=== PATIENT | female | born 1965 | race Caucasian/White ===

== ENCOUNTER → 2016-03-07 | Outpatient (CLI) | payer OTHER ==
[2016-02-03 10:18] VITALS: BP 138/93
[~2016-03-07] MED LIST: ATOR20TA PO; GABA-586 PO; GLIM2TAB2 PO; GLIP10TA13 PO; LISI10TA2 PO; OXYC-323 PO; SITA100T PO; VALS80TA3 PO; ZOLP10TA PO
--- NOTE | 2016-03-07 10:07 | KCIC ---
Examination: Two views of the chest. HISTORY History of pneumonitis, cough. COMPARISON None available. FINDINGS The cardiomediastinal grossly appears unremarkable. Minimal prominence of perihilar bronchovascular markings particularly in the bibasilar lungs. There is no evidence of pneumothorax or pleural effusion identified. IMPRESSION Mild prominent appearing bilateral interstitial lung markings particularly in the bibasilar lungs could be due to pneumonitis or bronchitis. Electronically signed by: Mehdi Montana (Mar 07, 2016 10:05:24)
== END | disposition home or self-care (01) ==
LOC: KCIC 09:34
PROVIDERS: ATTEND Family Medicine
DX: J18.9 Pneumonia, unspecified organism (principal); R05 Cough
CPT/HCPCS: 71020

== ENCOUNTER → 2016-11-15 | Outpatient (CLI) | payer OTHER ==
[2016-02-03 10:18] VITALS: BP 138/93
[2016-11-15 10:28] LABS: BASO # 0.1 x10^3/uL (0.0-0.2); BASO % 1 % (0-3); EOS % 3 % (0-3); HEMATOCRIT 37.4 % (36.0-47.0); HEMOGLOBIN 12.4 g/dL (12.0-15.5); LYMPH % 17 % (24-48); MEAN CORPUSCULAR HEMOGLOBIN 29 pg (25-35); MEAN CORPUSCULAR HGB CONC 33 g/dL (31-37); MEAN CORPUSCULAR VOLUME 88 fL (79-100); MONO % 8 % (0-9); NEUT % 72 % (31-73); PLATELET COUNT 159 x10^3/uL (140-400); RED BLOOD COUNT 4.26 x10^6/uL (3.50-5.40); RED CELL DISTRIBUTION WIDTH 15.3 % (11.5-14.5); WHITE BLOOD COUNT 5.9 x10^3/uL (4.0-11.0)
[2016-11-15 10:51] LABS: ALBUMIN 3.4 g/dL (3.4-5.0); ALBUMIN/GLOBULIN RATIO 1.1 (1.0-1.7); CALCIUM 8.8 mg/dL (8.5-10.1); CREATININE 0.9 mg/dL (0.6-1.0); TOTAL PROTEIN 6.6 g/dL (6.4-8.2)
[2016-11-15 10:52] LABS: C-REACTIVE PROTEIN 37.5 mg/L (0-3.3); GFR 66.3; POTASSIUM 4.1 mmol/L (3.5-5.1); TOTAL BILIRUBIN 1.1 mg/dL (0.2-1.0)
--- NOTE | 2016-11-15 11:41 | RAD ---
DATE: 11/15/2016 EXAM: DIGITAL DIAGNOSTIC BILATERAL, BREAST BILATERAL HISTORY: Tenderness and lumps in the bilateral breasts for 3 months COMPARISON: 02/24/2015 This study was interpreted with the benefit of Computerized Aided Detection (CAD). FINDINGS: Breast Density: SCATTERED The breast parenchyma shows scattered fibroglandular densities. Breast parenchyma level B. There are no dominant suspicious masses, suspicious microcalcifications or evidence of architectural distortion. Few bilateral axillary lymph nodes identified at the site of patient's tenderness. Targeted ultrasound of the bilateral breasts at the site of tenderness and lump in the region of the axilla demonstrate no definite evidence of mass or lesion or abnormal lymphadenopathy. IMPRESSION: Benign findings. Recommend clinical follow-up. BI-RADS CATEGORY: 2 BENIGN FINDING RECOMMENDED FOLLOW-UP: 12M 12 MONTH FOLLOW-UP PQRS compliance statement: Patient information was entered into a reminder system with a target due date 11/15/2017 for the next mammogram. Mammography is a sensitive method for finding small breast cancers, but it does not detect them all and is not a substitute for careful clinical examination. A negative mammogram does not negate a clinically suspicious finding and should not result in delay in biopsying a clinically suspicious abnormality. "Our facility is accredited by the [employer] Mammography Program."
== END | disposition home or self-care (01) ==
LOC: MAMMO 10:00
PROVIDERS: ATTEND Nurse Practitioner Family
DX: N64.4 Mastodynia (principal); E11.3399 Type 2 diabetes mellitus with moderate nonproliferative diabetic retinopathy without macular edema, unspecified eye; I88.9 Nonspecific lymphadenitis, unspecified
CPT/HCPCS: 36415; 76641; 80053; 83036; 85025; 85651; 86140; G0204; 77066

== ENCOUNTER 2017-10-03 08:42 | Emergency (ER) | payer OTHER ==
[~2017-10-03] VITALS: Ht 170.2 cm; Wt 131.5 kg
[2017-10-03] MEDS ORDERED: LIDO:MAALOX 1:1 20 ML SINGLE DOSE. PO ONE (09:30)
[2017-10-03 09:38] LABS: BASO % 1 % (0-3); EOS # 0.1 x10^3/uL (0.0-0.7); EOS % 1 % (0-3); HEMATOCRIT 37.6 % (36.0-47.0); HEMOGLOBIN 12.8 g/dL (12.0-15.5); LYMPH # 1.1 x10^3/uL (1.0-4.8); LYMPH % 17 % (24-48); MEAN CORPUSCULAR HEMOGLOBIN 30 pg (25-35); MEAN CORPUSCULAR HGB CONC 34 g/dL (31-37); MEAN CORPUSCULAR VOLUME 88 fL (79-100); MONO # 0.2 x10^3/uL (0.0-1.1); MONO % 3 % (0-9); NEUT % 78 % (31-73); PLATELET COUNT 155 x10^3/uL (140-400); RED BLOOD COUNT 4.29 x10^6/uL (3.50-5.40); WHITE BLOOD COUNT 6.4 x10^3/uL (4.0-11.0)
--- NOTE | 2017-10-03 09:38 | PHYS DOC ---
Past Medical History Past Medical History: Diabetes-Type II, Hypertension Past Surgical History: Other Additional Past Surgical Histo: L knee Alcohol Use: None Drug Use: None Adult General Chief Complaint Chief Complaint: CHEST PAIN HPI HPI Patient is a 52 year old female who presents to the ER for evaluation of chest pain. Patient reports onset at approximately 5 AM and states that awoke her from sleep. Patient states that she was having burning sensation consistent with previous heartburn but also is having some 5 out of 10 chest pressure. Patient reports gradual improvement and chest pressure to 3 out of 10. No aggravating or alleviating factors. No radiation of pain. He reports that she has some intermittent lower extremity edema is having some swelling today. Review of Systems Review of Systems Constitutional: Denies fever or chills [] Eyes: Denies change in visual acuity, redness, or eye pain [] HENT: Denies nasal congestion or sore throat [] Respiratory: Denies cough or shortness of breath [] Cardiovascular: Pain present, no orthopnea, lower extremity edema present. GI: Denies abdominal pain, nausea, vomiting, bloody stools or diarrhea [] : Denies dysuria or hematuria [] Musculoskeletal: Denies back pain or joint pain [] Integument: Denies rash or skin lesions [] Neurologic: Denies headache, focal weakness or sensory changes [] Endocrine: Denies polyuria or polydipsia [] All other systems were reviewed and found to be within normal limits, except as documented in this note. Current Medications Current Medications Current Medications Medications (Trade) Dose Ordered Sig/[place] Start Time Stop Time Status Last Admin Dose Admin Multi-Ingredient Mouthwash/Gargle (Gi Cocktail) 20 ml ONCE ONCE 10/03/17 09:30 10/03/17 09:31 DC 10/03/17 09:31 20 ML Allergies Allergies Allergies Coded Allergies Type Severity Reaction Last Updated Verified No Known Drug Allergies 02/03/16 No Physical Exam Physical Exam Constitutional: Obese no acute distress, non-toxic appearance. [] HENT: Normocephalic, atraumatic, Eyes: PERRLA, EOMI, Neck: no stridor. [] Cardiovascular:Heart rate regular rhythm, no murmur []7. Edema to bilateral lower extremity bilateral radial and DP pulses present and equal bilaterally Lungs & Thorax: Bilateral breath sounds clear to auscultation [] Abdomen: Bowel sounds normal, soft, no tenderness, no masses, no pulsatile masses. [] Skin: Warm, dry, no erythema, no rash. [] Back: No tenderness, no CVA tenderness. [] Extremities: Range of motion intact, edema noted above. Neurologic: Alert and oriented X 3, no focal deficits noted. [] Psychologic: Affect normal, judgement normal, mood normal. [] Current Patient Data Vital Signs Vital Signs Date Time Temp Pulse Resp B/P (MAP) Pulse Ox O2 Delivery O2 Flow Rate FiO2 10/03/17 12:45 92 20 134/70 (91) 95 Room Air 10/03/17 08:42 98.0 98.0 Lab Values Laboratory Tests Test 10/03/17 09:00 10/03/17 12:10 White Blood Count 6.4 x10^3/uL (4.0-11.0) Red Blood Count 4.29 x10^6/uL (3.50-5.40) Hemoglobin 12.8 g/dL (12.0-15.5) Hematocrit 37.6 % (36.0-47.0) Mean Corpuscular Volume 88 fL (79-100) Mean Corpuscular Hemoglobin 30 pg (25-35) Mean Corpuscular Hemoglobin Concent 34 g/dL (31-37) Red Cell Distribution Width 15.0 % (11.5-14.5) H Platelet Count 155 x10^3/uL (140-400) Neutrophils (%) (Auto) 78 % (31-73) H Lymphocytes (%) (Auto) 17 % (24-48) L Monocytes (%) (Auto) 3 % (0-9) Eosinophils (%) (Auto) 1 % (0-3) Basophils (%) (Auto) 1 % (0-3) Neutrophils # (Auto) 5.0 x10^3uL (1.8-7.7) Lymphocytes # (Auto) 1.1 x10^3/uL (1.0-4.8) Monocytes # (Auto) 0.2 x10^3/uL (0.0-1.1) Eosinophils # (Auto) 0.1 x10^3/uL (0.0-0.7) Basophils # (Auto) 0.0 x10^3/uL (0.0-0.2) Sodium Level 135 mmol/L (136-145) L Potassium Level 4.3 mmol/L (3.5-5.1) Chloride Level 99 mmol/L (98-107) Carbon Dioxide Level 27 mmol/L (21-32) Anion Gap 9 (6-14) Blood Urea Nitrogen 19 mg/dL (7-20) Creatinine 0.8 mg/dL (0.6-1.0) Estimated GFR (Cockcroft-Gault) 75.6 BUN/Creatinine Ratio 24 (6-20) H Glucose Level 391 mg/dL (70-99) H Calcium Level 9.8 mg/dL (8.5-10.1) Total Bilirubin 0.8 mg/dL (0.2-1.0) Aspartate Amino Transferase (AST) 17 U/L (15-37) Alanine Aminotransferase (ALT) 48 U/L (14-59) Alkaline Phosphatase 137 U/L (46-116) H Troponin I Quantitative < 0.017 ng/mL (0.000-0.055) < 0.017 ng/mL (0.000-0.055) CT-Wcr-V-Type Natriuretic Peptide 42 pg/mL (0-124) Total Protein 7.6 g/dL (6.4-8.2) Albumin 3.8 g/dL (3.4-5.0) Albumin/Globulin Ratio 1.0 (1.0-1.7) Lipase 129 U/L (73-393) Laboratory Tests 10/03/17 09:00 Laboratory Tests 10/03/17 09:00 EKG EKG Normal sinus rhythm, heart rate 92, no significant ST segment changes.[] KKG #2: Normal sinus rhythm, heart rate 92, no significant ST segment changes. Radiology/Procedures Radiology/Procedures CXR 2 view Impression: Minimal bibasilar lung airspace opacities likely atelectasis or infiltrates.. Electronically signed by: Mehdi Montana MD (10/03/2017 9:50 AM) [id number][] Course & Med Decision Making Course & Med Decision Making Pertinent Labs and Imaging studies reviewed. (See chart for details) []Reassuring ER evaluation. Patient reports near resolution of pain with GI cocktail. Reporting pain is 1 out of 10 at this time. Initial troponin and EKG are reassuring. Patient agreeable for ER obs PENDING second set. Patient remained comfortable with no recurrence of her chest pain after the GI cocktail for the duration of her ER visit. Serial EKG and troponins were very reassuring. Heart score of 2. Discussed labs and imaging. Advise close PCP follow-up. ER return precautions given. Patient verbalized understanding. All questions answered. Dragon Disclaimer Dragon Disclaimer This electronic medical record was generated, in whole or in part, using a voice recognition dictation system. Departure Departure Impression: Primary Impression: Chest pain Disposition: 01 HOME, SELF-CARE Condition: IMPROVED Referrals: YIN HOLLAND MD (PCP) Patient Instructions: Chest Pain (Nonspecific) Additional Instructions: Thank you for coming to [facility]. Please repeat the attached handouts. Please follow-up with your primary care physician. Return to the ER if your symptoms worsen or you have any other concerns. ERIC ROCHA DO Oct 03, 2017 09:38
--- NOTE | 2017-10-03 09:45 | EKG ---
[facility] [address] [place] [address] Test Date: 2017-10-03 Test Time: 08:42:20 Pat Name: NAZANIN SIMMONS Department: Room: Gender: F [employer]: : 1965 Requested By: ERIC ROCHA Order Number: [id number] Reading MD: Thomas Correia MD Measurements Intervals [place] Rate: 92 P: 18 MD: 166 QRS: 12 QRSD: 88 T: 41 QT: 338 QTc: 423 Interpretive Statements SINUS RHYTHM QRS(T) CONTOUR ABNORMALITY CONSISTENT WITH ANTEROSEPTAL INFARCT PROBABLY OLD ABNORMAL ECG Electronically Signed On 10-04-2017 15:23:05 CDT by Thomas Correia MD
[2017-10-03 09:46] LABS: CALCIUM 9.8 mg/dL (8.5-10.1); CREATININE 0.8 mg/dL (0.6-1.0); GFR 75.6; POTASSIUM 4.3 mmol/L (3.5-5.1)
--- NOTE | 2017-10-03 09:53 | RAD ---
Chest, PA and Lateral: Technique: PA and lateral views of the chest were obtained. History: Chest pain. Comparison: 03/07/2016. Findings: The heart and pulmonary vasculature appear within normal limits. Minimal bibasilar lung airspace opacity likely atelectasis or infiltrates.. The pleural margins are clear. Impression: Minimal bibasilar lung airspace opacities likely atelectasis or infiltrates.. Electronically signed by: Mehdi Montana MD (10/03/2017 9:50 AM) [id number]
[2017-10-03 09:56] LABS: ALBUMIN 3.8 g/dL (3.4-5.0); TOTAL BILIRUBIN 0.8 mg/dL (0.2-1.0); TOTAL PROTEIN 7.6 g/dL (6.4-8.2)
[2017-10-03 12:45] VITALS: BP 134/70
--- NOTE | 2017-10-03 13:14 | EKG ---
[facility] [address] [place] [address] Test Date: 2017-10-03 Test Time: 11:27:23 Pat Name: NAZANIN SIMMONS Department: Room: Gender: F Veget[employer]: OSCAR : 1965 Requested By: ERIC ROCHA Order Number: [id number] Reading MD: Thomas Correia MD Measurements Intervals [place] Rate: 92 P: 19 MT: 162 QRS: 5 QRSD: 82 T: 20 QT: 338 QTc: 423 Interpretive Statements SINUS RHYTHM QRS(T) CONTOUR ABNORMALITY CONSISTENT WITH ANTEROSEPTAL INFARCT PROBABLY OLD Electronically Signed On 10-04-2017 15:26:06 CDT by Thomas Correia MD
== END 2017-10-03 13:01 | disposition home or self-care (01) ==
LOC: ER 08:42
DX: R07.89 Other chest pain (principal); E11.9 Type 2 diabetes mellitus without complications; I10 Essential (primary) hypertension; R60.0 Localized edema; E66.9 Obesity, unspecified; Z68.42 Body mass index [BMI] 45.0-49.9, adult
CPT/HCPCS: 36415; 71046; 80053; 83690; 83880; 84484; 85025; 93005; 99285-25

== ENCOUNTER → 2017-10-31 | Outpatient (CLI) | payer OTHER ==
[2017-10-03 12:45] VITALS: BP 134/70
--- NOTE | 2017-10-31 16:16 | KCIC ---
Left knee radiograph 10/31/2017 12:00 AM INDICATION: Contusion of left knee with acute pain. COMPARISON: November 26, 2014 TECHNIQUE: 3 views the left knee are provided. FINDINGS: There is no acute fracture or dislocation. Hardware is identified in the proximal tibia without surrounding lucency. There is mild to moderate medial and mild lateral femorotibial joint space narrowing. Mineralization is identified within the joint spaces suggestive of chondrocalcinosis. There is marginal osteophytosis. There is no significant knee joint effusion. There is patellofemoral joint space narrowing with marginal osteophytosis. Bone mineralization is within normal limits. Joint spaces are maintained. Regional soft tissues are within normal limits. There is no soft tissue gas or osseous erosion. IMPRESSION: Mild to moderate osteoarthrosis of the knee. Mineralization along the joint spaces is suggestive of chondrocalcinosis. Electronically signed by: Sabrina Acosta MD (10/31/2017 4:12 PM) [id number]
== END | disposition home or self-care (01) ==
LOC: KCIC 15:45
PROVIDERS: ATTEND Family Medicine
DX: M17.11 Unilateral primary osteoarthritis, right knee (principal); I10 Essential (primary) hypertension; E11.9 Type 2 diabetes mellitus without complications; E78.5 Hyperlipidemia, unspecified; Z82.49 Family history of ischemic heart disease and other diseases of the circulatory system; Z80.0 Family history of malignant neoplasm of digestive organs; Z83.3 Family history of diabetes mellitus; Z90.710 Acquired absence of both cervix and uterus
CPT/HCPCS: 73562

== ENCOUNTER → 2017-11-12 | Outpatient (CLI) | payer OTHER ==
--- NOTE | 2017-11-12 13:38 | KCIC ---
MR of the left knee Indication: Left knee contusion. Previous surgery as a child. Injury on October 30. Pain anterior and posterior. Comparison: November 27, 2014. Technique: The standard multiplanar sequences are obtained. FINDINGS: Artifact: No significant image degradation. Medial meniscus: Radial tear at the posterior horn and root. Additional tearing through the posterior horn and body. Medial subluxation of the meniscus. Appearance is similar to the prior exam. Lateral meniscus: Intact. Anterior cruciate ligament: Intact Posterior cruciate ligament: Diffusely thickened and heterogeneous compatible with a high-grade tear. No complete through and through rupture or fluid gap is seen. Medial collateral ligament: Mild proximal sprain or thickening. Lateral structures: * Iliotibial band: Intact. * Lateral collateral ligament: Intact. * Biceps femoris tendon: Intact * Popliteus tendon attachment: Intact Extensive mechanism: * Patellar tendon: Intact. Surgical hardware identified at the tibial tubercle. * Quadriceps tendon: Intact * Retinacular structures: Intact Fluid: Small joint effusion. Trace Vilchis's cyst. Small fluid pocket along the posteromedial knee joint, likely a small ganglion cyst. This could also represent some mild septated bursitis. Somewhat similar finding was seen previously but is slightly larger now. Intra-articular bodies: None visualized Joint compartments * patellofemoral joint: Severe articular cartilage loss with subchondral bone exposure. There is flattening and remodeling of bone particularly at the patella. * medial compartment: Moderate chondromalacia with marginal osteophytes. * lateral compartment: Mild degenerative change. Bones: No significant lesion or acute fracture. Soft tissue: Mild generalized soft tissue edema. Impression: 1. Medial meniscal tear, appears similar as prior study. 2. Severe primary osteoarthritis, greatest at the patellofemoral joint, similar to prior. Electronically signed by: Cachorro Busby MD (11/12/2017 1:35 PM) [id number]
== END | disposition home or self-care (01) ==
LOC: KCIC MRI 12:06
PROVIDERS: ATTEND Orthopaedic Surgery
DX: S80.02XD Contusion of left knee, subsequent encounter (principal); S83.242D Other tear of medial meniscus, current injury, left knee, subsequent encounter; M17.0 Bilateral primary osteoarthritis of knee; M94.262 Chondromalacia, left knee; M25.762 Osteophyte, left knee; R60.0 Localized edema; I10 Essential (primary) hypertension; E11.9 Type 2 diabetes mellitus without complications; E78.5 Hyperlipidemia, unspecified; Z90.710 Acquired absence of both cervix and uterus; Z82.49 Family history of ischemic heart disease and other diseases of the circulatory system; Z80.0 Family history of malignant neoplasm of digestive organs; Z80.3 Family history of malignant neoplasm of breast
CPT/HCPCS: 73721

== ENCOUNTER → 2017-12-07 | Outpatient (CLI) | payer OTHER ==
[~2017-12-07] MED LIST changes: +AMLO5TAB7 PO; +B12/1TAB3 PO
[2017-12-07 09:06] LABS: ALBUMIN 3.6 g/dL (3.4-5.0); ALBUMIN/GLOBULIN RATIO 0.9 (1.0-1.7); CALCIUM 9.3 mg/dL (8.5-10.1); GFR 58.5; POTASSIUM 4.5 mmol/L (3.5-5.1); TOTAL BILIRUBIN 0.6 mg/dL (0.2-1.0); TOTAL PROTEIN 7.5 g/dL (6.4-8.2)
[2017-12-07 09:09] LABS: CHOLESTEROL/HDL RATIO 3.2
[2017-12-07 13:22] LABS: CREAT RD UR 65.7 mg/dL (Not Estab.); MICRO CREAT RATIO 7.5 mg/g creat (0.0-30.0); MICROALB RD UR 4.9 ug/mL (Not Estab.)
[2017-12-07 23:14] LABS: HEMOGLOBIN A1C 11.3 % (4.8-5.6)
== END | disposition home or self-care (01) ==
LOC: LAB 08:23
PROVIDERS: ATTEND Family Medicine
DX: E11.3399 Type 2 diabetes mellitus with moderate nonproliferative diabetic retinopathy without macular edema, unspecified eye (principal)
CPT/HCPCS: 36415; 80053; 80061; 82043; 82570; 83036

== ENCOUNTER 2018-01-10 01:36 | Emergency (ER) | payer OTHER ==
[~2018-01-10] VITALS: Ht 170.2 cm; Wt 131.5 kg
[2018-01-10 01:40] VITALS: BP 153/91
--- NOTE | 2018-01-10 01:55 | PHYS DOC ---
Past Medical History Past Medical History: Diabetes-Type II, High Cholesterol, Hypertension Past Surgical History: Hysterectomy, Tonsillectomy, Other Additional Past Surgical Histo: L knee, RIGHT SHOULDER Alcohol Use: None Drug Use: None Adult General Chief Complaint Chief Complaint: BACK PAIN OR INJURY HPI HPI Patient is a 52 year old female who presents with right back pain. This started during the course of the day. Increased pain with twisting and moving as well as walking especially with moving the right leg. Patient denies any loss of bowel or bladder control. Patient denies any fever, trauma, personal history of cancer, nor IV drug abuse. Patient received no significant pain relief with 800 mg of ibuprofen at home. There is no radiation of the discomfort. Patient feels better with holding still. Increased pain with moving and twisting. Pain is moderate to severe in intensity [] Review of Systems Review of Systems Constitutional: Denies fever or chills [] Eyes: Denies change in visual acuity, redness, or eye pain [] HENT: Denies nasal congestion or sore throat [] Respiratory: Denies cough or shortness of breath [] Cardiovascular: No chest pain or palpitations[] GI: Denies abdominal pain, nausea, vomiting, bloody stools or diarrhea [] : Denies dysuria or hematuria [] Musculoskeletal: See history of present illness[] Integument: Denies rash or skin lesions [] Neurologic: Denies headache, focal weakness or sensory changes [] Endocrine: Denies polyuria or polydipsia [] All other systems were reviewed and found to be within normal limits, except as documented in this note. Current Medications Current Medications Current Medications Medications (Trade) Dose Ordered Sig/[facility] Start Time Stop Time Status Last Admin Dose Admin Ketorolac Tromethamine (Toradol 15mg Vial) 15 mg 1X ONCE 01/10/18 02:15 01/10/18 02:16 DC 01/10/18 02:09 15 MG Orphenadrine Citrate (Norflex) 60 mg 1X ONCE 01/10/18 02:15 01/10/18 02:16 DC 01/10/18 02:09 60 MG Allergies Allergies Allergies Coded Allergies Type Severity Reaction Last Updated Verified No Known Drug Allergies 02/03/16 No Physical Exam Physical Exam Constitutional: Well developed, well nourished, mild discomfort, non-toxic appearance. [] HENT: Normocephalic, atraumatic, bilateral external ears normal, oropharynx moist, no oral exudates, nose normal. [] Eyes: PERRLA, EOMI, conjunctiva normal, no discharge. [] Neck: Normal range of motion, no tenderness, supple, no stridor. [] Cardiovascular:Heart rate regular rhythm, no murmur [] Lungs & Thorax: Bilateral breath sounds clear to auscultation [] Abdomen: Bowel sounds normal, soft, no tenderness, no masses, no pulsatile masses. [] Skin: Warm, dry, no erythema, no rash. [] Back: Right-sided lumbar paraspinal spasm and tenderness to palpation. Palpation does re-create the pain. Normal gait. [] Extremities: No tenderness, no cyanosis, no clubbing, ROM intact, no edema. [] Neurologic: Alert and oriented X 3, normal motor function, normal sensory function, no focal deficits noted. [] Psychologic: Affect normal, judgement normal, mood normal. [] Current Patient Data Vital Signs Vital Signs Date Time Temp Pulse Resp B/P (MAP) Pulse Ox O2 Delivery O2 Flow Rate FiO2 01/10/18 01:40 98.0 92 18 153/91 (111) 96 Room Air 98.0 EKG EKG [] Radiology/Procedures Radiology/Procedures [] Course & Med Decision Making Course & Med Decision Making Pertinent Labs and Imaging studies reviewed. (See chart for details) ED course: Patient arrived, was placed in bed, in tolerated exam well. Discussed options regarding laboratory testing and imaging with the patient along with the choosing wisely guidelines. There was no indication for imaging. Patient received IM NSAID as well as muscle relaxer which did allow her to sleep and rest comfortably. 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 Medical decision making: There does not appear to be evidence of a fracture or subluxation. No evidence of intractable pain. No evidence of urinary tract infection/pyelonephritis nor abdominal aortic aneurysm. No red flag history items indicating a need for imaging.[] Dragon Disclaimer Dragon Disclaimer This electronic medical record was generated, in whole or in part, using a voice recognition dictation system. Departure Departure Impression: Primary Impression: Lumbar paraspinal muscle spasm Disposition: HOME, SELF-CARE Condition: GOOD Referrals: YIN HOLLAND MD (PCP) Follow-up in 2 days Patient Instructions: Back Pain, Adult Additional Instructions: Follow-up with your regular doctor in 2 days. Return to the ER if worsening pain , loss of bowel or bladder control, you develop a fever, or any other concerns. No driving for the next 6 hours Scripts Orphenadrine Citrate (ORPHENADRINE CITRATE) 100 Mg Tablet.er 100 MG PO BID, #20 TAB.SR Prov: JANETTE MERRITT DO 01/10/18 Meloxicam (MELOXICAM) 7.5 Mg Tablet 7.5 MG PO DAILY, #20 TAB Prov: JANETTE MERRITT DO 01/10/18 JANETTE MERRITT DO Jan 10, 2018 01:55
[2018-01-10] MEDS ORDERED: KETOROLAC 15 MG/ML VIAL. IM ONE (02:15)
[2018-01-10] MEDS ORDERED: ORPHENADRINE CITRATE 60 MG/2 ML VIAL. IM ONE (02:15)
[2018-01-10] MEDS ORDERED: ORPH100T PO (02:31)
[2018-01-10] MEDS ORDERED: MELO7.5T29 PO (02:31)
== END 2018-01-10 02:50 | disposition home or self-care (01) ==
LOC: ER 01:36
DX: M62.830 Muscle spasm of back (principal); E78.00 Pure hypercholesterolemia, unspecified; I10 Essential (primary) hypertension; E11.9 Type 2 diabetes mellitus without complications; Z90.710 Acquired absence of both cervix and uterus
CPT/HCPCS: 96372; 99283; J1885; J2360

== ENCOUNTER 2018-04-12 19:41 | Inpatient (IN) | payer OTHER ==
[~2018-04-12] VITALS: Ht 170.2 cm; Wt 136.8 kg
[~2018-04-12 19:41] MED LIST changes: +AMLO5TAB10 PO; -AMLO5TAB7 PO; -GABA-586 PO; +GABA300C18 PO; +MELO7.5T29 PO; +ORPH100T PO; -OXYC-323 PO; +OXYC1TAB15 PO
[2018-04-12] MEDS ORDERED: ONDANSETRON PF 4 MG/2 ML VIAL. ONE (20:07)
[2018-04-12] MEDS ORDERED: IPRATRPIUM/ALBUTEROL 0.5/2.5MG 3 ML NEBU. NEB ONE (20:15)
[2018-04-12] MEDS ORDERED: IV NORMAL SALINE 1000ML BAG 1,000 ML IV SCH (20:15)
[2018-04-12] MEDS ORDERED: ONDANSETRON PF 4 MG/2 ML VIAL. IV ONE (20:15)
[2018-04-12] MEDS ORDERED: ONDANSETRON PF 4 MG/2 ML VIAL. IM ONE (20:15)
[2018-04-12 20:25] LABS: BASO % 0 % (0-3); EOS # 0.1 x10^3/uL (0.0-0.7); EOS % 2 % (0-3); HEMATOCRIT 36.8 % (36.0-47.0); HEMOGLOBIN 12.5 g/dL (12.0-15.5); LYMPH # 0.7 x10^3/uL (1.0-4.8); LYMPH % 15 % (24-48); MEAN CORPUSCULAR HEMOGLOBIN 29 pg (25-35); MEAN CORPUSCULAR HGB CONC 34 g/dL (31-37); MEAN CORPUSCULAR VOLUME 86 fL (79-100); MONO # 0.3 x10^3/uL (0.0-1.1); MONO % 7 % (0-9); NEUT # 3.5 x10^3uL (1.8-7.7); NEUT % 76 % (31-73); PLATELET COUNT 154 x10^3/uL (140-400); RED BLOOD COUNT 4.31 x10^6/uL (3.50-5.40); RED CELL DISTRIBUTION WIDTH 14.8 % (11.5-14.5); WHITE BLOOD COUNT 4.6 x10^3/uL (4.0-11.0)
[2018-04-12 20:32] LABS: CALCIUM 8.9 mg/dL (8.5-10.1); CREATININE 0.9 mg/dL (0.6-1.0); GFR 65.8; POTASSIUM 3.9 mmol/L (3.5-5.1)
[2018-04-12 20:34] LABS: INFLUENZA A PATIENT NEGATIVE (NEGATIVE); INFLUENZA B PATIENT NEGATIVE (NEGATIVE)
[2018-04-12 20:39] LABS: ALBUMIN 3.3 g/dL (3.4-5.0); ALBUMIN/GLOBULIN RATIO 0.8 (1.0-1.7); TOTAL BILIRUBIN 0.8 mg/dL (0.2-1.0); TOTAL PROTEIN 7.2 g/dL (6.4-8.2)
--- NOTE | 2018-04-12 21:55 | PHYS DOC ---
Past Medical History Past Medical History: Diabetes-Type II, High Cholesterol, Hypertension, Other Additional Past Medical Histor: Insomnia Past Surgical History: Hysterectomy, Tonsillectomy, Other Additional Past Surgical Histo: L knee, RIGHT SHOULDER, myomectomy Alcohol Use: None Drug Use: None Adult General Chief Complaint Chief Complaint: SHORTNESS OF BREATH HPI HPI Patient is a 53-year-old female who presents with complaint of cough, fever and shortness of breath. Patient states symptoms began this Sunday and symptoms have progressively gotten worse through the week. She states that earlier this afternoon her temperature had been 101 but she took some Tylenol prior to coming to the emergency room. She also took some Phenergan with codeine for the cough. She states that the shortness of breath didn't start until earlier this morning and has progressively gotten worse to the point where she is getting out of breath with minimal exertion. Patient is not sure whether or not she has the flu or if she might have pneumonia. She does indicate that her cough has been fairly dry. Patient also complains of generalized body aches but states the worst of the pain is in her upper back in between her shoulder blades. Review of Systems Review of Systems Constitutional: Positive fever and chills [] Respiratory: Complains of cough and shortness of breath [] Cardiovascular: No additional information not addressed in HPI [] GI: Complains of nausea and vomiting without diarrhea [] Musculoskeletal: Complains of body aches and back pain [] All other systems were reviewed and found to be within normal limits, except as documented in this note. Current Medications Current Medications Current Medications Medications (Trade) Dose Ordered Sig/[facility] Start Time Stop Time Status Last Admin Dose Admin Acetaminophen (Tylenol) 650 mg PRN Q6HRS PRN 04/12/18 22:00 Albuterol/ Ipratropium (Duoneb) 3 ml 1X ONCE 04/12/18 20:15 04/12/18 20:16 DC 04/12/18 20:08 3 ML Dextrose (Dextrose 50%-Water Syringe) 12.5 gm PRN Q15MIN PRN 04/12/18 22:30 Guaifenesin/ Codeine Phosphate (Robitussin Ac) 5 ml PRN Q6HRS PRN 04/12/18 22:30 04/12/18 23:37 5 ML Info (Non-Icu Electrolyte Protocol) 1 ea PRN DAILY PRN 04/12/18 22:00 Lactulose (Lactulose) 20 gm PRN Q12HR PRN 04/12/18 22:00 Magnesium Hydroxide (Milk Of Magnesia) 2,400 mg PRN Q12HR PRN 04/12/18 22:00 Methylprednisolone Sodium Succinate (SOLU-Medrol 125MG VIAL) 125 mg Q8H 04/12/18 22:15 04/12/18 22:57 125 MG Morphine Sulfate (Morphine Sulfate) 2 mg PRN Q2HR PRN 04/12/18 22:00 04/13/18 21:59 Non-Formulary Medication (Zolpidem Tartrate (Ambien)) 1 tab QHS PRN 04/12/18 22:00 UNV Ondansetron HCl (Zofran) 4 mg PRN Q6HRS PRN 04/12/18 22:00 Piperacillin Sod/ Tazobactam Sod 3.375 gm/Sodium Chloride 50 ml @ 100 mls/hr 1X ONCE 04/12/18 22:15 04/12/18 22:44 Cancel Ringer's Solution 1,000 ml @ 100 mls/hr Q10H 04/12/18 22:00 04/13/18 07:59 04/12/18 23:38 100 MLS/HR Sodium Chloride 1,000 ml @ 1,000 mls/hr Q1H 04/12/18 20:15 04/12/18 21:14 DC 04/12/18 20:11 1,000 MLS/HR Vancomycin HCl (Vanco Per Pharmacy) 1 each PRN DAILY PRN 04/12/18 22:00 04/12/18 23:16 1 EACH Vancomycin HCl 2 gm/Sodium Chloride 500 ml @ 250 mls/hr 1X ONCE 04/12/18 22:30 04/13/18 00:29 DC 04/12/18 22:55 250 MLS/HR Zolpidem Tartrate (Ambien) 10 mg PRN QHS PRN 04/12/18 22:30 UNV Allergies Allergies Allergies Coded Allergies Type Severity Reaction Last Updated Verified No Known Drug Allergies 02/03/16 No Physical Exam Physical Exam Constitutional: Well developed, well nourished, no acute distress, non-toxic appearance. [] HENT: Normocephalic, atraumatic, bilateral external ears normal, oropharynx dry , no oral exudates, nose normal. [] Eyes: PERRLA, EOMI, conjunctiva normal, no discharge. [] Neck: Normal range of motion, no tenderness, supple, no stridor. [] Cardiovascular: Regular rate and rhythm[] Lungs & Thorax: There are coarse rhonchi noted in the bilateral lower lobes[] Abdomen: Bowel sounds normal, soft. [] Skin: Warm, dry, no erythema, no rash. [] Extremities: No cyanosis, no clubbing, ROM intact. [] Neurologic: Alert and oriented X 3, no focal deficits noted. [] Current Patient Data Vital Signs Vital Signs Date Time Temp Pulse Resp B/P (MAP) Pulse Ox O2 Delivery O2 Flow Rate FiO2 04/12/18 22:16 106 22 172/126 (141) 96 Nasal Cannula 4.0 04/12/18 19:43 99.5 99.5 Lab Values Laboratory Tests Test 04/12/18 19:57 04/12/18 20:10 Influenza Type A Antigen Negative (NEGATIVE) Influenza Type B Antigen Negative (NEGATIVE) White Blood Count 4.6 x10^3/uL (4.0-11.0) Red Blood Count 4.31 x10^6/uL (3.50-5.40) Hemoglobin 12.5 g/dL (12.0-15.5) Hematocrit 36.8 % (36.0-47.0) Mean Corpuscular Volume 86 fL (79-100) Mean Corpuscular Hemoglobin 29 pg (25-35) Mean Corpuscular Hemoglobin Concent 34 g/dL (31-37) Red Cell Distribution Width 14.8 % (11.5-14.5) H Platelet Count 154 x10^3/uL (140-400) Neutrophils (%) (Auto) 76 % (31-73) H Lymphocytes (%) (Auto) 15 % (24-48) L Monocytes (%) (Auto) 7 % (0-9) Eosinophils (%) (Auto) 2 % (0-3) Basophils (%) (Auto) 0 % (0-3) Neutrophils # (Auto) 3.5 x10^3uL (1.8-7.7) Lymphocytes # (Auto) 0.7 x10^3/uL (1.0-4.8) L Monocytes # (Auto) 0.3 x10^3/uL (0.0-1.1) Eosinophils # (Auto) 0.1 x10^3/uL (0.0-0.7) Basophils # (Auto) 0.0 x10^3/uL (0.0-0.2) Sodium Level 137 mmol/L (136-145) Potassium Level 3.9 mmol/L (3.5-5.1) Chloride Level 97 mmol/L (98-107) L Carbon Dioxide Level 27 mmol/L (21-32) Anion Gap 13 (6-14) Blood Urea Nitrogen 12 mg/dL (7-20) Creatinine 0.9 mg/dL (0.6-1.0) Estimated GFR (Cockcroft-Gault) 65.8 BUN/Creatinine Ratio 13 (6-20) Glucose Level 287 mg/dL (70-99) H Lactic Acid Level 1.1 mmol/L (0.4-2.0) Calcium Level 8.9 mg/dL (8.5-10.1) Total Bilirubin 0.8 mg/dL (0.2-1.0) Aspartate Amino Transferase (AST) 34 U/L (15-37) Alanine Aminotransferase (ALT) 54 U/L (14-59) Alkaline Phosphatase 137 U/L (46-116) H XP-Koy-A-Type Natriuretic Peptide 168 pg/mL (0-124) H Total Protein 7.2 g/dL (6.4-8.2) Albumin 3.3 g/dL (3.4-5.0) L Albumin/Globulin Ratio 0.8 (1.0-1.7) L Laboratory Tests 04/12/18 20:10 Laboratory Tests 04/12/18 20:10 EKG EKG [] Radiology/Procedures Radiology/Procedures [] Impressions: Chest x-ray demonstrates bilateral interstitial infiltrates Course & Med Decision Making Course & Med Decision Making Pertinent Labs and Imaging studies reviewed. (See chart for details) Patient moved to room upon arrival was evaluated by your medical staff after which an IV was established and blood work was drawn. Patient given a liter of normal saline and given DuoNeb treatment. Chest x-ray was obtained and upon review patient deemed to have pneumonia. 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 Patient was given doses of Zosyn and vancomycin. Case was discussed with hospitalist and patient admitted under hospitalist care. Dragon Disclaimer Dragon Disclaimer This electronic medical record was generated, in whole or in part, using a voice recognition dictation system. Departure Departure Impression: Primary Impression: HCAP (healthcare-associated pneumonia) Disposition: 09 ADMITTED INPATIENT Admitting Physician: Other (Dr. Graham) Condition: IMPROVED Referrals: YIN HOLLAND MD (PCP) DAVON GONZALES Jr. DO Apr 12, 2018 21:55
[2018-04-12] MEDS ORDERED: NON FORMULARY ITEM (Zolpidem Tartrate (Ambien) 1 TAB) PO PRN (22:00)
[2018-04-12] MEDS ORDERED: IV RINGERS,LACTATED 1000ML 1,000 ML IV SCH (22:00)
[2018-04-12] MEDS ORDERED: MAGNESIUM HYDROXIDE 2,400 MG/30 ML ORAL.SUSP. PO PRN (22:00)
[2018-04-12] MEDS ORDERED: ACETAMINOPHEN 325 MG TABLET. PO PRN (22:00)
[2018-04-12] MEDS ORDERED: ONDANSETRON PF 4 MG/2 ML VIAL. IV PRN ×2 (22:00)
[2018-04-12] MEDS ORDERED: MORPHINE SULFATE 4 MG/ML VIAL. IV PRN (22:00)
[2018-04-12] MEDS ORDERED: LACTULOSE 20 GM/30 ML SOLUTION. PO PRN (22:00)
[2018-04-12] MEDS ORDERED: ELECTROLYTE (NON-ICU) PROTOCOL MC PRN (22:00)
[2018-04-12] MEDS ORDERED: ZOLPIDEM 5 MG TABLET. PO PRN ×2 (22:00→22:30)
[2018-04-12] MEDS ORDERED: VANCOMYCIN 1GM IVPB FOR OMNI 250 ML IV ONE (22:15)
[2018-04-12] MEDS ORDERED: guaiFENesin/CODEINE 100mg/10mg 5 ML LIQUID PO PRN (22:15)
[2018-04-12] MEDS ORDERED: PIPERACILLIN/TAZOBACTAM 3.375 GM in IV NORMAL SALINE 50ML 50 ML IV ONE (22:15)
[2018-04-12] MEDS ORDERED: DEXTROSE 50% 25 GM / 50ML DISP.SYRIN. IV PRN (22:30)
[2018-04-12] MEDS ORDERED: VANCOMYCIN 2 GM in IV NORMAL SALINE 500ML BAG 500 ML IV ONE (22:30)
--- NOTE | 2018-04-12 22:41 | PDOC1 ---
History and Physical Date of Admission Date of Admission 04/12/2018 Identification/Chief Complaint Chief Complaint i couldnt breathe Problems: (1) HCAP (healthcare-associated pneumonia) Source Source: Chart review, Patient History of Present Illness History of Present Illness Patient is a 53-year-old female with multiple comorbidities including hypertension diabetes who was in her usual state of health until approximately one week prior to her admission. The patient was exposed at home to her daughter who had cold-like symptoms and upper respiratory tract infection complains with cough runny nose and generalized malaise. The patient started presenting her symptoms approximately 5-6 days prior to her admission never insidious way. She started self-medicating at home with nebulization therapies and also [id number] medications with some relief of her symptoms but progressively have gotten worse. Patient's father suffers from COPD and she checked her oximetry since her father has one at home and she was at 88%. Patient felt very lightheaded today and unable to even take a shower due to her symptoms. She tried to self medicated as well with nebulization therapy as she got from her daughter who suffers from asthma and due to the progressive nature of her symptoms she decided to come to the emergency department for further evaluation treatment. Prior to her evaluation in the emergency department she had a quantified fever of 101 Fahrenheit at home at the time of my visit the patient is in mild to moderate distress with cough wearing oxygen but fairly comfortable. She has been diagnosed with bilateral pneumonia and will be admitted for further evaluation and treatment No pleurisy reported no signs of toxicity or hemodynamic instability evident. I have discussed the radiographic findings and laboratory data and answered all her concerns to the best of my abilities. Plan of care explained in detail. Past Medical History Cardiovascular: HTN Pulmonary: No pertinent hx CENTRAL NERVOUS SYSTEM: Other Endocrine: Diabetes Past Surgical History Past Surgical History: Arthroscopy, Tonsillectomy, Other Family History Family History: Diabetes, Hypertension Social History ALCOHOL: none Drugs: None Current Problem List Problem List Problems Medical Problems: (1) HCAP (healthcare-associated pneumonia) Status: Acute Current Medications Current Medications Current Medications Medications (Trade) Dose Ordered Sig/[facility] Start Time Stop Time Status Last Admin Dose Admin Acetaminophen (Tylenol) 650 mg PRN Q6HRS PRN 04/12/18 22:00 Albuterol/ Ipratropium (Duoneb) 3 ml RTQID 04/13/18 08:00 04/14/18 07:59 Amlodipine Besylate (Norvasc) 5 mg DAILY 04/13/18 09:00 Atorvastatin Calcium (Lipitor) 20 mg HS 04/13/18 21:00 Cyclobenzaprine HCl (Flexeril) 10 mg TID 04/13/18 09:00 Glimepiride (Amaryl) 6 mg DAILY 04/13/18 09:00 Guaifenesin/ Codeine Phosphate (Robitussin Ac) 5 ml PRN Q6HRS PRN 04/12/18 22:15 Info (Non-Icu Electrolyte Protocol) 1 ea PRN DAILY PRN 04/12/18 22:00 Lactulose (Lactulose) 20 gm PRN Q12HR PRN 04/12/18 22:00 Linagliptin (Tradjenta) 5 mg DAILY 04/13/18 09:00 Magnesium Hydroxide (Milk Of Magnesia) 2,400 mg PRN Q12HR PRN 04/12/18 22:00 Meloxicam (Mobic) 7.5 mg DAILY 04/13/18 09:00 Methylprednisolone Sodium Succinate (SOLU-Medrol 125MG VIAL) 125 mg Q8H 04/12/18 22:15 Morphine Sulfate (Morphine Sulfate) 2 mg PRN Q2HR PRN 04/12/18 22:00 04/13/18 21:59 Non-Formulary Medication (Zolpidem Tartrate (Ambien)) 1 tab QHS PRN 04/12/18 22:00 UNV Ondansetron HCl (Zofran) 4 mg PRN Q6HRS PRN 04/12/18 22:00 Piperacillin Sod/ Tazobactam Sod 3.375 gm/Sodium Chloride 50 ml @ 100 mls/hr 1X ONCE 04/12/18 22:15 04/12/18 22:44 Cancel Piperacillin Sod/ Tazobactam Sod 4.5 gm/Sodium Chloride 100 ml @ 200 mls/hr Q6HRS 04/13/18 00:00 UNV Ringer's Solution 1,000 ml @ 100 mls/hr Q10H 04/12/18 22:00 04/13/18 07:59 Sodium Chloride 1,000 ml @ 1,000 mls/hr Q1H 04/12/18 20:15 04/12/18 21:14 DC 04/12/18 20:11 1,000 MLS/HR Vancomycin HCl (Vanco Per Pharmacy) 1 each PRN DAILY PRN 04/12/18 22:00 UNV Vancomycin HCl 2 gm/Sodium Chloride 500 ml @ 250 mls/hr 1X ONCE 04/12/18 22:30 04/13/18 00:29 Zolpidem Tartrate (Ambien) 5 mg PRN QHS PRN 04/12/18 22:00 Allergies Allergies Allergies Coded Allergies Type Severity Reaction Last Updated Verified No Known Drug Allergies 02/03/16 No ROS Review of System CONSTITUTIONAL: + fever and chills EYES: No recent changes SKIN: No rash or itching CARDIOVASCULAR: No chest pain, syncope, palpitations, or edema RESPIRATORY: +SOB + cough GASTROINTESTINAL: No nausea, vomiting or abdominal pain NEUROLOGICAL: + headaches + weakness ENDOCRINE: No cold or heat intolerance GENITOURINARY: No urgency or frequency of urination MUSCULOSKELETAL: No back pain or joint pain LYMPHATICS: No enlarged lymph nodes PSYCHIATRIC: No anxiety or depression Physical Exam Physical Exam GEN.: No apparent distress. Alert and oriented. HEENT: Head is normocephalic, atraumatic NECK: Supple. LUNGS: bilateral rales HEART: RRR, S1, S2 present. Peripheral pulses intact ABDOMEN: Soft, nontender. Positive bowel sounds. EXTREMITIES: Without any cyanosis. NEUROLOGIC: Normal speech, normal tone PSYCHIATRIC: Normal affect, normal mood. SKIN: No ulcerations Vitals Vitals Vital Signs Date Time Temp Pulse Resp B/P (MAP) Pulse Ox O2 Delivery O2 Flow Rate FiO2 04/12/18 20:46 102 24 167/79 (108) 93 Nasal Cannula 2.0 04/12/18 19:43 99.5 99.5 Labs Labs Laboratory Tests Test 04/12/18 19:57 04/12/18 20:10 Influenza Type A Antigen Negative (NEGATIVE) Influenza Type B Antigen Negative (NEGATIVE) White Blood Count 4.6 x10^3/uL (4.0-11.0) Red Blood Count 4.31 x10^6/uL (3.50-5.40) Hemoglobin 12.5 g/dL (12.0-15.5) Hematocrit 36.8 % (36.0-47.0) Mean Corpuscular Volume 86 fL (79-100) Mean Corpuscular Hemoglobin 29 pg (25-35) Mean Corpuscular Hemoglobin Concent 34 g/dL (31-37) Red Cell Distribution Width 14.8 % (11.5-14.5) Platelet Count 154 x10^3/uL (140-400) Neutrophils (%) (Auto) 76 % (31-73) Lymphocytes (%) (Auto) 15 % (24-48) Monocytes (%) (Auto) 7 % (0-9) Eosinophils (%) (Auto) 2 % (0-3) Basophils (%) (Auto) 0 % (0-3) Neutrophils # (Auto) 3.5 x10^3uL (1.8-7.7) Lymphocytes # (Auto) 0.7 x10^3/uL (1.0-4.8) Monocytes # (Auto) 0.3 x10^3/uL (0.0-1.1) Eosinophils # (Auto) 0.1 x10^3/uL (0.0-0.7) Basophils # (Auto) 0.0 x10^3/uL (0.0-0.2) Sodium Level 137 mmol/L (136-145) Potassium Level 3.9 mmol/L (3.5-5.1) Chloride Level 97 mmol/L (98-107) Carbon Dioxide Level 27 mmol/L (21-32) Anion Gap 13 (6-14) Blood Urea Nitrogen 12 mg/dL (7-20) Creatinine 0.9 mg/dL (0.6-1.0) Estimated GFR (Cockcroft-Gault) 65.8 BUN/Creatinine Ratio 13 (6-20) Glucose Level 287 mg/dL (70-99) Lactic Acid Level 1.1 mmol/L (0.4-2.0) Calcium Level 8.9 mg/dL (8.5-10.1) Total Bilirubin 0.8 mg/dL (0.2-1.0) Aspartate Amino Transf (AST/SGOT) 34 U/L (15-37) Alanine Aminotransferase (ALT/SGPT) 54 U/L (14-59) Alkaline Phosphatase 137 U/L (46-116) SU-Gih-A-Type Natriuretic Peptide 168 pg/mL (0-124) Total Protein 7.2 g/dL (6.4-8.2) Albumin 3.3 g/dL (3.4-5.0) Albumin/Globulin Ratio 0.8 (1.0-1.7) Laboratory Tests Test 04/12/18 19:57 04/12/18 20:10 Influenza Type A Antigen Negative (NEGATIVE) Influenza Type B Antigen Negative (NEGATIVE) White Blood Count 4.6 x10^3/uL (4.0-11.0) Red Blood Count 4.31 x10^6/uL (3.50-5.40) Hemoglobin 12.5 g/dL (12.0-15.5) Hematocrit 36.8 % (36.0-47.0) Mean Corpuscular Volume 86 fL (79-100) Mean Corpuscular Hemoglobin 29 pg (25-35) Mean Corpuscular Hemoglobin Concent 34 g/dL (31-37) Red Cell Distribution Width 14.8 % (11.5-14.5) Platelet Count 154 x10^3/uL (140-400) Neutrophils (%) (Auto) 76 % (31-73) Lymphocytes (%) (Auto) 15 % (24-48) Monocytes (%) (Auto) 7 % (0-9) Eosinophils (%) (Auto) 2 % (0-3) Basophils (%) (Auto) 0 % (0-3) Neutrophils # (Auto) 3.5 x10^3uL (1.8-7.7) Lymphocytes # (Auto) 0.7 x10^3/uL (1.0-4.8) Monocytes # (Auto) 0.3 x10^3/uL (0.0-1.1) Eosinophils # (Auto) 0.1 x10^3/uL (0.0-0.7) Basophils # (Auto) 0.0 x10^3/uL (0.0-0.2) Sodium Level 137 mmol/L (136-145) Potassium Level 3.9 mmol/L (3.5-5.1) Chloride Level 97 mmol/L (98-107) Carbon Dioxide Level 27 mmol/L (21-32) Anion Gap 13 (6-14) Blood Urea Nitrogen 12 mg/dL (7-20) Creatinine 0.9 mg/dL (0.6-1.0) Estimated GFR (Cockcroft-Gault) 65.8 BUN/Creatinine Ratio 13 (6-20) Glucose Level 287 mg/dL (70-99) Lactic Acid Level 1.1 mmol/L (0.4-2.0) Calcium Level 8.9 mg/dL (8.5-10.1) Total Bilirubin 0.8 mg/dL (0.2-1.0) Aspartate Amino Transf (AST/SGOT) 34 U/L (15-37) Alanine Aminotransferase (ALT/SGPT) 54 U/L (14-59) Alkaline Phosphatase 137 U/L (46-116) IL-Vdv-E-Type Natriuretic Peptide 168 pg/mL (0-124) Total Protein 7.2 g/dL (6.4-8.2) Albumin 3.3 g/dL (3.4-5.0) Albumin/Globulin Ratio 0.8 (1.0-1.7) VTE Prophylaxis Ordered VTE Prophylaxis Devices: No VTE Pharmacological Prophylaxi: Yes Assessment/Plan Assessment/Plan Healthcare associated pneumonia Type 2 diabetes mellitus insulin requiring currently uncontrolled Hyperglycemia secondary to underlying infectious process History of essential hypertension currently fairly controlled Morbid obesity BMI of 46 History of dyslipidemia Mild dehydration Plan: Start vancomycin and Zosyn Symptomatic relief of cough Start Solu-Medrol Supplemental oxygen Monitor respiratory status Monitor hemodynamics Resume home medications Further recommendations based on the clinical course DVT prophylaxis with SCDs and ELIAJH Paredes MD Apr 12, 2018 22:41
[2018-04-12] MEDS: methylPREDNISolone SOD SUCC PF 125 MG/2 ML VIAL. IV SCH (22:57)
[2018-04-12] MEDS: VANCOMYCIN PER PHARMACY MC PRN (23:16)
[2018-04-12 23:20] VITALS: BP 120/92
--- NOTE | 2018-04-12 23:28 | NUR ---
Pharmacy Vancomycin Dosing Note S:Consulted to monitor and dose vancomycin started 04/12/18. O:NAZANIN SIMMONS is a 53 year old F with HCAP . Height: 5 feet, 7 inches Weight: 133.837486 kg Armbrust Body Weight: 61.60 Adjusted Body Weight: 90.48 Dosing Weight: Actual Other Antibiotics: ZOSYN 4.5GM IV Q6H LABS: Last BUN: 12 Last Creatinine: 0.9 Creatinine Clearance: 104 mL/min Last WBC: 4.6 Last Procalcitonin: Tmax (past 24 hours): Microbiology: I/O: Drug Levels: Last level: on at Last dose given at Vancomycin Dosing: Loading Dose: 2000 mg x1 04/12/18 2255 Dosing Weight: Actual Target Trough: 15-20 A: Based on: Actual Wt and CrCl P: 1. 04/13/18 1100 Vancomycin 2000 mg IV q12h 2. Follow up Trough level on 04/14/18 at 1030 3. Pharmacy will continue to monitor, follow and adjust therapy as needed. ADELINA GARCIA RPH, 04/12/18 2328 Signed: 04/12/18 at 2329 by ADELINA GARCIA RPH PHA
[2018-04-12] MEDS: ZOLPIDEM 5 MG TABLET. PO PRN (23:37)
[2018-04-12] MEDS: guaiFENesin/CODEINE 100mg/10mg 5 ML LIQUID PO PRN (23:37)
[2018-04-13] MEDS ORDERED: DIPH50CA PO (00:05)
[2018-04-13] MEDS ORDERED: LINZESS145 MCG PO (00:05)
[2018-04-13] MEDS ORDERED: SPIR25TA PO (00:05)
[2018-04-13] MEDS ORDERED: MULT1TAB52 PO (00:05)
[2018-04-13] MEDS: PIPERACILLIN/TAZOBACTAM 4.5 GM in IV NORMAL SALINE 100ML 100 ML IV SCH ×5 (00:54→23:20)
[2018-04-13 03:40] VITALS: BP 181/96
[2018-04-13] MEDS: guaiFENesin/CODEINE 100mg/10mg 5 ML LIQUID PO PRN ×3 (04:15→21:49)
[2018-04-13] MEDS: amLODIPine BESYLATE 5 MG TABLET PO SCH ×2 (04:20→09:00)
[2018-04-13] MEDS: methylPREDNISolone SOD SUCC PF 125 MG/2 ML VIAL. IV SCH (06:12)
[2018-04-13 07:00] VITALS: BP 144/86
--- NOTE | 2018-04-13 07:43 | RAD ---
CHEST PA LATERAL CLINICAL INDICATION: Dyspnea, dizzy and fever x a week COMPARISON: 10/03/2017 FINDINGS: Heart is normal in size. Bilateral multifocal patchy opacities are seen, left more than right. No pneumothorax or pleural effusion. Visualized bony thorax is within normal limits. IMPRESSION: Findings suggests bilateral multifocal pneumonia, left more than right. Follow-up imaging after medical therapy recommended to ensure resolution. Electronically signed by: Helder Krishna DO (04/13/2018 7:40 AM) [facility]
[2018-04-13] MEDS: IPRATRPIUM/ALBUTEROL 0.5/2.5MG 3 ML NEBU. NEB SCH ×4 (08:17→21:04)
[2018-04-13] MEDS: LINAGLIPTIN 5 MG TABLET PO SCH (08:46)
[2018-04-13] MEDS: GLIMEPIRIDE 2 MG TABLET. PO SCH (08:46)
[2018-04-13] MEDS: MELOXICAM 7.5 MG TABLET PO SCH (08:54)
[2018-04-13] MEDS: CYCLOBENZAPRINE 10 MG TABLET. PO SCH ×3 (08:54→21:48)
[2018-04-13] MEDS: INSULIN LISPRO 300 UNITS/3 ML INSULN.PEN. SQ SCH ×3 (09:05→17:35)
--- NOTE | 2018-04-13 10:15 | PDOC ---
PROGRESS NOTES Chief Complaint Chief Complaint Healthcare associated pneumonia Type 2 diabetes mellitus insulin requiring currently uncontrolled Hyperglycemia secondary to underlying infectious process and steroid treatment History of essential hypertension currently fairly controlled Morbid obesity BMI of 46 History of dyslipidemia Mild dehydration Plan: vancomycin and Zosyn Symptomatic relief of cough taper Solu-Medrol Supplemental oxygen Monitor respiratory status Monitor hemodynamics Resume home medications Further recommendations based on the clinical course repeat X ray DVT prophylaxis with SCDs and teds History of Present Illness History of Present Illness Patient clinically much improved compared to admission. The patient has remained her appetite and respiratory distress is resolving. Cough has improved as well and she was able to sleep throughout the night. Plan of care explaiend in detail. Vitals Vitals Vital Signs Date Time Temp Pulse Resp B/P (MAP) Pulse Ox O2 Delivery O2 Flow Rate FiO2 04/13/18 08:21 96 Nasal Cannula 4.0 04/13/18 07:00 98.2 86 22 144/86 (105) 98.2 Physical Exam Physical Exam Gen. sitting in chair in no apparent distress Head: Normal shape atraumatic Eyes: Pupils equal reactive to light and accommodation, normal conjunctivae and lids Ears: Normal shape Nose: Normal shape no trauma Mouth: No exudates of the back of throat no thrush no lesions Neck: Supple no JVD no carotid bruit or lymphadenopathy no thyromegaly Chest: Lungs clear to auscultation with good inspiratory effort no crackles rales or rhonchi Cardiovascular: S1-S2 regular rhythm no murmurs gallops or rubs Abdomen: Bowel sounds present soft nontender no hepatosplenomegaly appreciated sign Extremities: No clubbing no cyanosis no edema peripheral pulses palpated bilaterally Neurological: Alert awake oriented in person time place and situation, cranial nerves II through XII intact, no motor or sensory deficits appreciated Psych: Appropriate mood, cooperative Lungs: Clear Labs LABS Laboratory Tests Test 04/12/18 19:57 04/12/18 20:10 04/12/18 20:12 04/13/18 08:13 Influenza Type A Antigen Negative (NEGATIVE) Influenza Type B Antigen Negative (NEGATIVE) White Blood Count 4.6 x10^3/uL (4.0-11.0) Red Blood Count 4.31 x10^6/uL (3.50-5.40) Hemoglobin 12.5 g/dL (12.0-15.5) Hematocrit 36.8 % (36.0-47.0) Mean Corpuscular Volume 86 fL (79-100) Mean Corpuscular Hemoglobin 29 pg (25-35) Mean Corpuscular Hemoglobin Concent 34 g/dL (31-37) Red Cell Distribution Width 14.8 % (11.5-14.5) Platelet Count 154 x10^3/uL (140-400) Neutrophils (%) (Auto) 76 % (31-73) Lymphocytes (%) (Auto) 15 % (24-48) Monocytes (%) (Auto) 7 % (0-9) Eosinophils (%) (Auto) 2 % (0-3) Basophils (%) (Auto) 0 % (0-3) Neutrophils # (Auto) 3.5 x10^3uL (1.8-7.7) Lymphocytes # (Auto) 0.7 x10^3/uL (1.0-4.8) Monocytes # (Auto) 0.3 x10^3/uL (0.0-1.1) Eosinophils # (Auto) 0.1 x10^3/uL (0.0-0.7) Basophils # (Auto) 0.0 x10^3/uL (0.0-0.2) Sodium Level 137 mmol/L (136-145) Potassium Level 3.9 mmol/L (3.5-5.1) Chloride Level 97 mmol/L (98-107) Carbon Dioxide Level 27 mmol/L (21-32) Anion Gap 13 (6-14) Blood Urea Nitrogen 12 mg/dL (7-20) Creatinine 0.9 mg/dL (0.6-1.0) Estimated GFR (Cockcroft-Gault) 65.8 BUN/Creatinine Ratio 13 (6-20) Glucose Level 287 mg/dL (70-99) Lactic Acid Level 1.1 mmol/L (0.4-2.0) Calcium Level 8.9 mg/dL (8.5-10.1) Total Bilirubin 0.8 mg/dL (0.2-1.0) Aspartate Amino Transf (AST/SGOT) 34 U/L (15-37) Alanine Aminotransferase (ALT/SGPT) 54 U/L (14-59) Alkaline Phosphatase 137 U/L (46-116) KF-Hut-H-Type Natriuretic Peptide 168 pg/mL (0-124) Total Protein 7.2 g/dL (6.4-8.2) Albumin 3.3 g/dL (3.4-5.0) Albumin/Globulin Ratio 0.8 (1.0-1.7) Group A Streptococcus Rapid Negative (NEGATIVE) Glucose (Fingerstick) 366 mg/dL (70-99) Review of Systems Review of Systems Pertinent as per history of present illness otherwise 14 point review of system is negative Assessment and Plan Assessmemt and Plan Problems Medical Problems: (1) HCAP (healthcare-associated pneumonia) Status: Acute Comment Review of Relevant I have reviewed the following items bora (where applicable) has been applied. Labs Laboratory Tests Test 04/12/18 19:57 04/12/18 20:10 04/12/18 20:12 04/13/18 08:13 Influenza Type A Antigen Negative (NEGATIVE) Influenza Type B Antigen Negative (NEGATIVE) White Blood Count 4.6 x10^3/uL (4.0-11.0) Red Blood Count 4.31 x10^6/uL (3.50-5.40) Hemoglobin 12.5 g/dL (12.0-15.5) Hematocrit 36.8 % (36.0-47.0) Mean Corpuscular Volume 86 fL (79-100) Mean Corpuscular Hemoglobin 29 pg (25-35) Mean Corpuscular Hemoglobin Concent 34 g/dL (31-37) Red Cell Distribution Width 14.8 % (11.5-14.5) Platelet Count 154 x10^3/uL (140-400) Neutrophils (%) (Auto) 76 % (31-73) Lymphocytes (%) (Auto) 15 % (24-48) Monocytes (%) (Auto) 7 % (0-9) Eosinophils (%) (Auto) 2 % (0-3) Basophils (%) (Auto) 0 % (0-3) Neutrophils # (Auto) 3.5 x10^3uL (1.8-7.7) Lymphocytes # (Auto) 0.7 x10^3/uL (1.0-4.8) Monocytes # (Auto) 0.3 x10^3/uL (0.0-1.1) Eosinophils # (Auto) 0.1 x10^3/uL (0.0-0.7) Basophils # (Auto) 0.0 x10^3/uL (0.0-0.2) Sodium Level 137 mmol/L (136-145) Potassium Level 3.9 mmol/L (3.5-5.1) Chloride Level 97 mmol/L (98-107) Carbon Dioxide Level 27 mmol/L (21-32) Anion Gap 13 (6-14) Blood Urea Nitrogen 12 mg/dL (7-20) Creatinine 0.9 mg/dL (0.6-1.0) Estimated GFR (Cockcroft-Gault) 65.8 BUN/Creatinine Ratio 13 (6-20) Glucose Level 287 mg/dL (70-99) Lactic Acid Level 1.1 mmol/L (0.4-2.0) Calcium Level 8.9 mg/dL (8.5-10.1) Total Bilirubin 0.8 mg/dL (0.2-1.0) Aspartate Amino Transf (AST/SGOT) 34 U/L (15-37) Alanine Aminotransferase (ALT/SGPT) 54 U/L (14-59) Alkaline Phosphatase 137 U/L (46-116) RJ-Ase-X-Type Natriuretic Peptide 168 pg/mL (0-124) Total Protein 7.2 g/dL (6.4-8.2) Albumin 3.3 g/dL (3.4-5.0) Albumin/Globulin Ratio 0.8 (1.0-1.7) Group A Streptococcus Rapid Negative (NEGATIVE) Glucose (Fingerstick) 366 mg/dL (70-99) Laboratory Tests Test 04/12/18 19:57 04/12/18 20:10 04/12/18 20:12 04/13/18 08:13 Influenza Type A Antigen Negative (NEGATIVE) Influenza Type B Antigen Negative (NEGATIVE) White Blood Count 4.6 x10^3/uL (4.0-11.0) Red Blood Count 4.31 x10^6/uL (3.50-5.40) Hemoglobin 12.5 g/dL (12.0-15.5) Hematocrit 36.8 % (36.0-47.0) Mean Corpuscular Volume 86 fL (79-100) Mean Corpuscular Hemoglobin 29 pg (25-35) Mean Corpuscular Hemoglobin Concent 34 g/dL (31-37) Red Cell Distribution Width 14.8 % (11.5-14.5) Platelet Count 154 x10^3/uL (140-400) Neutrophils (%) (Auto) 76 % (31-73) Lymphocytes (%) (Auto) 15 % (24-48) Monocytes (%) (Auto) 7 % (0-9) Eosinophils (%) (Auto) 2 % (0-3) Basophils (%) (Auto) 0 % (0-3) Neutrophils # (Auto) 3.5 x10^3uL (1.8-7.7) Lymphocytes # (Auto) 0.7 x10^3/uL (1.0-4.8) Monocytes # (Auto) 0.3 x10^3/uL (0.0-1.1) Eosinophils # (Auto) 0.1 x10^3/uL (0.0-0.7) Basophils # (Auto) 0.0 x10^3/uL (0.0-0.2) Sodium Level 137 mmol/L (136-145) Potassium Level 3.9 mmol/L (3.5-5.1) Chloride Level 97 mmol/L (98-107) Carbon Dioxide Level 27 mmol/L (21-32) Anion Gap 13 (6-14) Blood Urea Nitrogen 12 mg/dL (7-20) Creatinine 0.9 mg/dL (0.6-1.0) Estimated GFR (Cockcroft-Gault) 65.8 BUN/Creatinine Ratio 13 (6-20) Glucose Level 287 mg/dL (70-99) Lactic Acid Level 1.1 mmol/L (0.4-2.0) Calcium Level 8.9 mg/dL (8.5-10.1) Total Bilirubin 0.8 mg/dL (0.2-1.0) Aspartate Amino Transf (AST/SGOT) 34 U/L (15-37) Alanine Aminotransferase (ALT/SGPT) 54 U/L (14-59) Alkaline Phosphatase 137 U/L (46-116) IG-Lde-U-Type Natriuretic Peptide 168 pg/mL (0-124) Total Protein 7.2 g/dL (6.4-8.2) Albumin 3.3 g/dL (3.4-5.0) Albumin/Globulin Ratio 0.8 (1.0-1.7) Group A Streptococcus Rapid Negative (NEGATIVE) Glucose (Fingerstick) 366 mg/dL (70-99) Medications Current Medications Sodium Chloride 1,000 ml @ 1,000 mls/hr Q1H IV Last administered on 04/12/18at 20:11; Start 04/12/18 at 20:15; Stop 04/12/18 at 21:14; Status DC Albuterol/ Ipratropium (Duoneb) 3 ml 1X ONCE NEB Last administered on at 20:08; Start 04/12/18 at 20:15; Stop 04/12/18 at 20:16; Status DC Ondansetron HCl (Zofran) 4 mg 1X ONCE IM ; Start 04/12/18 at 20:15; Stop at 20:16; Status Cancel Ondansetron HCl (Zofran) 4 mg STK-MED ONCE .ROUTE ; Start 04/12/18 at 20:07; Stop 04/12/18 at 20:08; Status DC Ondansetron HCl (Zofran) 4 mg 1X ONCE IV Last administered on 04/12/18at 20:11 ; Start 04/12/18 at 20:15; Stop 04/12/18 at 20:16; Status DC Piperacillin Sod/ Tazobactam Sod 3.375 gm/Sodium Chloride 50 ml @ 100 mls/hr 1X ONCE IV ; Start 04/12/18 at 22:15; Stop 04/12/18 at 22:44; Status Cancel Vancomycin HCl 250 ml @ 250 mls/hr 1X ONCE IV ; Start 04/12/18 at 22:15; Stop 04/12/18 at 23:14; Status Cancel Ondansetron HCl (Zofran) 4 mg PRN Q8HRS PRN IV NAUSEA/VOMITING; Start 04/12/18 at 22:00; Stop 04/12/18 at 22:21; Status DC Morphine Sulfate (Morphine Sulfate) 2 mg PRN Q2HR PRN IV PAIN; Start 04/12/18 at 22:00; Stop 04/13/18 at 21:59 Acetaminophen (Tylenol) 650 mg PRN Q4HRS PRN PO FEVER; Start 04/12/18 at 22:00 ; Stop 04/12/18 at 22:21; Status DC Albuterol/ Ipratropium (Duoneb) 3 ml RTQID NEB Last administered on 04/13/18at 08:17; Start 04/13/18 at 08:00; Stop 04/14/18 at 07:59 Zolpidem Tartrate (Ambien) 10 mg PRN QHS PRN PO INSOMNIA; Start 04/12/18 at 22: 00; Stop 04/12/18 at 22:21; Status DC Piperacillin Sod/ Tazobactam Sod 4.5 gm/Sodium Chloride 100 ml @ 200 mls/hr Q6HRS IV Last administered on 04/13/18at 06:12; Start 04/13/18 at 00:00 Vancomycin HCl (Vanco Per Pharmacy) 1 each PRN DAILY PRN MC SEE COMMENTS Last administered on 04/12/18at 23:16; Start 04/12/18 at 22:00 Ringer's Solution 1,000 ml @ 100 mls/hr Q10H IV Last administered on at 23:38; Start 04/12/18 at 22:00; Stop 04/13/18 at 07:59; Status DC Ondansetron HCl (Zofran) 4 mg PRN Q6HRS PRN IV NAUSEA/VOMITING; Start 04/12/18 at 22:00 Zolpidem Tartrate (Ambien) 5 mg PRN QHS PRN PO INSOMNIA, MAY REPEAT IN 1HR Last administered on 04/12/18at 23:37; Start 04/12/18 at 22:00 Info (Non-Icu Electrolyte Protocol) 1 ea PRN DAILY PRN MC SEE COMMENTS; Start 04/12/18 at 22:00 Acetaminophen (Tylenol) 650 mg PRN Q6HRS PRN PO Headaches, Temp > 101.5F; Start 04/12/18 at 22:00 Magnesium Hydroxide (Milk Of Magnesia) 2,400 mg PRN Q12HR PRN PO CONSTIPATION; Start 04/12/18 at 22:00 Lactulose (Lactulose) 20 gm PRN Q12HR PRN PO CONSTIPATION; Start 04/12/18 at 22 :00 Amlodipine Besylate (Norvasc) 5 mg DAILY PO Last administered on 04/13/18at 04: 20; Start 04/13/18 at 04:00 Atorvastatin Calcium (Lipitor) 20 mg HS PO ; Start 04/13/18 at 21:00 Glimepiride (Amaryl) 6 mg DAILY PO Last administered on 04/13/18 08:46; Start 04/13/18 at 09:00 Meloxicam (Mobic) 7.5 mg DAILY PO Last administered on 04/13/18 08:54; Start 04/13/18 at 09:00 Cyclobenzaprine HCl (Flexeril) 10 mg TID PO Last administered on 04/13/18 08: 54; Start 04/13/18 at 09:00 Linagliptin (Tradjenta) 5 mg DAILY PO Last administered on 04/13/18 08:46; Start 04/13/18 at 09:00 Non-Formulary Medication (Zolpidem Tartrate (Ambien)) 1 tab QHS PRN PO INSOMNIA ; Start 04/12/18 at 22:00; Status UNV Guaifenesin/ Codeine Phosphate (Robitussin Ac) 5 ml PRN Q6HRS PRN PO COUGH; Start 04/12/18 at 22:15; Stop 04/12/18 at 22:55; Status DC Vancomycin HCl 2 gm/Sodium Chloride 500 ml @ 250 mls/hr 1X ONCE IV Last administered on 04/12/18at 22:55; Start 04/12/18 at 22:30; Stop 04/13/18 at 00:29 ; Status DC Methylprednisolone Sodium Succinate (SOLU-Medrol 125MG VIAL) 125 mg Q8H IV Last administered on 04/13/18 06:12; Start 04/12/18 at 22:15 Guaifenesin (Mucinex) 600 mg Q12H PO Last administered on 04/12/18at 23:37; Start 04/12/18 at 23:00 Guaifenesin/ Codeine Phosphate (Robitussin Ac) 5 ml PRN Q6HRS PRN PO COUGH Last administered on 04/13/18 04:15; Start 04/12/18 at 22:30 Zolpidem Tartrate (Ambien) 10 mg PRN QHS PRN PO INSOMNIA; Start 04/12/18 at 22: 30; Status UNV Insulin Human Lispro (HumaLOG) 0-9 UNITS TIDWMEALS SQ Last administered on 04/13at 09:05; Start 04/13/18 at 08:00 Dextrose (Dextrose 50%-Water Syringe) 12.5 gm PRN Q15MIN PRN IV SEE COMMENTS; Start 04/12/18 at 22:30 Vancomycin HCl 2 gm/Sodium Chloride 500 ml @ 250 mls/hr Q12H IV ; Start at 11:00 Vancomycin HCl (Vancomycin Trough Level) 1 each 1X ONCE MC ; Start 04/14/18 at 10:30; Stop 04/14/18 at 10:31 Active Scripts Active Reported Multivitamins (Multivitamin) 1 Each Tablet 1 Tab PO DAILY Linzess (Linaclotide) 145 Mcg Capsule 145 Mcg PO DAILY07 Aldactone (Spironolactone) 25 Mg Tablet 1 Tab PO DAILY Diphenhydramine Hcl 50 Mg Capsule 1 Cap PO QHS PRN Folbic Rf Tablet (B12/Levomefolate Calcium/B-6) 1 Each Tablet 1 Each PO Amlodipine Besylate 5 Mg Tablet 5 Mg PO DAILY Ambien (Zolpidem Tartrate) 10 Mg Tablet 1 Tab PO QHS PRN Glimepiride 2 Mg Tablet 4 Mg PO BID Lipitor (Atorvastatin Calcium) 20 Mg Tablet 1 Tab PO DAILY Januvia (Sitagliptin Phosphate) 100 Mg Tablet 1 Tab PO DAILY Vitals/I & O Vital Sign - Last 24 Hours 04/12/18 04/12/18 04/12/18 04/12/18 19:43 20:10 20:16 20:46 Temp 99.5 99.5 Pulse 104 106 102 Resp B/P (MAP) 178/87 (117) 153/71 (98) 167/79 (108) Pulse Ox 88 96 98 93 O2 Delivery Room Air Room Air Nasal Cannula Nasal Cannula O2 Flow Rate 2.0 2.0 04/12/18 04/12/18 04/12/18 04/12/18 21:16 21:46 22:16 22:46 Pulse 96 106 106 98 Resp B/P (MAP) 163/68 (99) 172/86 (114) 172/126 (141) 182/122 (142) Pulse Ox 95 98 96 94 O2 Delivery Nasal Cannula Nasal Cannula Nasal Cannula Nasal Cannula O2 Flow Rate 4.0 4.0 4.0 4.0 04/12/18 04/12/18 04/12/18 04/13/18 22:48 23:20 23:30 03:40 Temp 98.5 98.1 98.5 98.1 Pulse 102 95 115 Resp 20 21 20 B/P (MAP) 149/70 (96) 120/92 (101) 181/96 (124) Pulse Ox 97 92 94 O2 Delivery Nasal Cannula Nasal Cannula Nasal Cannula Room Air O2 Flow Rate 4.0 4.0 4.0 04/13/18 04/13/18 04/13/18 04/13/18 04:20 07:00 07:15 08:21 Temp 98.2 98.2 Pulse 95 86 Resp 22 B/P (MAP) 181/96 144/86 (105) Pulse Ox 92 96 O2 Delivery Nasal Cannula Nasal Cannula Nasal Cannula O2 Flow Rate 4.0 4.0 4.0 Intake and Output 04/12/18 04/12/18 04/13/18 15:00 23:00 07:00 Intake Total 100 ml Output Total 600 ml Balance -500 ml ELIJAH JAMIL MD Apr 13, 2018 10:15
[2018-04-13 10:41] LABS: CALCIUM 8.6 mg/dL (8.5-10.1); CREATININE 1.1 mg/dL (0.6-1.0); GFR 52.2; POTASSIUM 4.5 mmol/L (3.5-5.1)
--- NOTE | 2018-04-13 10:51 | RAD ---
CHEST PA LATERAL CLINICAL INDICATION: short of air,pneumonia COMPARISON: 04/12/2018 FINDINGS: Heart is normal in size. Patchy opacities are seen in the left lung. No focal consolidation. No pneumothorax or pleural effusion. Visualized bony thorax is within normal limits. IMPRESSION: Findings suggests left lung infection. Electronically signed by: Helder Krishna DO (04/13/2018 10:49 AM) [facility]
[2018-04-13 10:53] VITALS: BP 105/57
[2018-04-13 11:03] LABS: BASO % 0 % (0-3); EOS % 0 % (0-3); HEMATOCRIT 36.1 % (36.0-47.0); HEMOGLOBIN 11.6 g/dL (12.0-15.5); LYMPH # 0.4 x10^3/uL (1.0-4.8); LYMPH % 8 % (24-48); MEAN CORPUSCULAR HEMOGLOBIN 28 pg (25-35); MEAN CORPUSCULAR HGB CONC 32 g/dL (31-37); MEAN CORPUSCULAR VOLUME 88 fL (79-100); MONO # 0.1 x10^3/uL (0.0-1.1); MONO % 1 % (0-9); NEUT % 90 % (31-73); PLATELET COUNT 131 x10^3/uL (140-400); RED BLOOD COUNT 4.08 x10^6/uL (3.50-5.40); RED CELL DISTRIBUTION WIDTH 14.8 % (11.5-14.5); WHITE BLOOD COUNT 4.4 x10^3/uL (4.0-11.0)
[2018-04-13] MEDS: VANCOMYCIN PER PHARMACY MC PRN (11:15)
[2018-04-13] MEDS ORDERED: INSULIN LISPRO 300 UNITS/3 ML INSULN.PEN. SQ ONE ×2 (11:15→22:00)
[2018-04-13] MEDS: VANCOMYCIN 2 GM in IV NORMAL SALINE 500ML BAG 500 ML IV SCH ×2 (11:33→21:06)
[2018-04-13 12:46] LABS: % BANDS 5 % (0-9); % LYMPHS 5 % (24-48); % MONOS 1 % (0-10); % SEGS 89 % (35-66); PLT ESTIMATE ADEQUATE (ADEQUATE)
[2018-04-13] MEDS ORDERED: INSULIN GLARGINE 300 UNITS/3 ML INSULN.PEN. SQ SCH (14:45)
[2018-04-13 15:00] VITALS: BP 141/70
[2018-04-13 19:35] VITALS: BP 131/65
[2018-04-13] MEDS: ZOLPIDEM 5 MG TABLET. PO PRN ×2 (21:48→23:26)
[2018-04-13] MEDS: LACTOBACILLUS RHAMNOSUS GG 1 CAPSULE. PO SCH (21:48)
[2018-04-13] MEDS: ATORVASTATIN CALCIUM 20 MG TABLET PO SCH (21:48)
[2018-04-13] MEDS: methylPREDNISolone SOD SUCC PF 40 MG/ML VIAL. IV SCH (21:49)
[2018-04-13 23:10] VITALS: BP 172/81
[2018-04-14] MEDS: PIPERACILLIN/TAZOBACTAM 4.5 GM in IV NORMAL SALINE 100ML 100 ML IV SCH ×2 (06:30→11:28)
[2018-04-14 07:00] VITALS: BP 160/74
[2018-04-14] MEDS: IPRATRPIUM/ALBUTEROL 0.5/2.5MG 3 ML NEBU. NEB SCH ×4 (07:47→20:45)
[2018-04-14] MEDS: GLIMEPIRIDE 2 MG TABLET. PO SCH (08:32)
[2018-04-14] MEDS: LINAGLIPTIN 5 MG TABLET PO SCH (08:32)
[2018-04-14] MEDS: guaiFENesin/CODEINE 100mg/10mg 5 ML LIQUID PO PRN (08:32)
[2018-04-14] MEDS: LACTOBACILLUS RHAMNOSUS GG 1 CAPSULE. PO SCH ×2 (08:33→21:34)
[2018-04-14] MEDS: amLODIPine BESYLATE 5 MG TABLET PO SCH (08:35)
[2018-04-14] MEDS: MELOXICAM 7.5 MG TABLET PO SCH (08:37)
[2018-04-14] MEDS: CYCLOBENZAPRINE 10 MG TABLET. PO SCH ×3 (08:37→21:34)
[2018-04-14] MEDS: methylPREDNISolone SOD SUCC PF 40 MG/ML VIAL. IV SCH (08:37)
[2018-04-14] MEDS: INSULIN GLARGINE 300 UNITS/3 ML INSULN.PEN. SQ SCH ×2 (08:57→21:40)
[2018-04-14] MEDS: INSULIN LISPRO 300 UNITS/3 ML INSULN.PEN. SQ SCH ×3 (08:58→18:45)
[2018-04-14 11:06] VITALS: BP 165/80
[2018-04-14] MEDS: VANCOMYCIN PER PHARMACY MC PRN (11:31)
[2018-04-14] MEDS ORDERED: ALBUTEROL SULFATE 2.5 MG/3 ML NEBU. NEB PRN (12:30)
[2018-04-14 12:37] LABS: CALCIUM 8.8 mg/dL (8.5-10.1); GFR 58.2; POTASSIUM 4.4 mmol/L (3.5-5.1)
[2018-04-14] MEDS: VANCOMYCIN 2 GM in IV NORMAL SALINE 500ML BAG 500 ML IV SCH (12:50)
--- NOTE | 2018-04-14 13:35 | PDOC ---
PROGRESS NOTES Chief Complaint Chief Complaint Healthcare associated pneumonia Type 2 diabetes mellitus insulin requiring currently uncontrolled Hyperglycemia secondary to underlying infectious process and steroid treatment History of essential hypertension currently fairly controlled Morbid obesity BMI of 46 History of dyslipidemia Mild dehydration Plan: vancomycin and Zosyn will be discontinued and levofloxacin orally started Discontinue Solu-Medrol Symptomatic relief of cough will hold off on codeine until the evening Supplemental oxygen Monitor respiratory status Monitor hemodynamics Resume home medications Further recommendations based on the clinical course repeat X ray DVT prophylaxis with SCDs and teds History of Present Illness History of Present Illness Patient clinically much improved compared to admission. The patient has remained her appetite and respiratory distress is resolving. Cough has improved as well and she was able to sleep throughout the night. Plan of care explaiend in detail. Vitals Vitals Vital Signs Date Time Temp Pulse Resp B/P (MAP) Pulse Ox O2 Delivery O2 Flow Rate FiO2 04/14/18 13:00 98 Nasal Cannula 2.0 04/14/18 11:06 97.9 81 18 165/80 (108) 97.9 Physical Exam Physical Exam Gen. sitting in chair in no apparent distress Head: Normal shape atraumatic Eyes: Pupils equal reactive to light and accommodation, normal conjunctivae and lids Ears: Normal shape Nose: Normal shape no trauma Mouth: No exudates of the back of throat no thrush no lesions Neck: Supple no JVD no carotid bruit or lymphadenopathy no thyromegaly Chest: Lungs clear to auscultation with good inspiratory effort no crackles rales or rhonchi Cardiovascular: S1-S2 regular rhythm no murmurs gallops or rubs Abdomen: Bowel sounds present soft nontender no hepatosplenomegaly appreciated sign Extremities: No clubbing no cyanosis no edema peripheral pulses palpated bilaterally Neurological: Alert awake oriented in person time place and situation, cranial nerves II through XII intact, no motor or sensory deficits appreciated Psych: Appropriate mood, cooperative Lungs: Clear Labs LABS Laboratory Tests Test 04/13/18 14:16 04/13/18 17:10 04/13/18 21:22 04/14/18 07:28 Glucose (Fingerstick) 561 mg/dL (70-99) 501 mg/dL (70-99) 433 mg/dL (70-99) 311 mg/dL (70-99) Test 04/14/18 10:30 04/14/18 11:37 Sodium Level 138 mmol/L (136-145) Potassium Level 4.4 mmol/L (3.5-5.1) Chloride Level 101 mmol/L (98-107) Carbon Dioxide Level 27 mmol/L (21-32) Anion Gap 10 (6-14) Blood Urea Nitrogen 25 mg/dL (7-20) Creatinine 1.0 mg/dL (0.6-1.0) Estimated GFR (Cockcroft-Gault) 58.2 Glucose Level 394 mg/dL (70-99) Calcium Level 8.8 mg/dL (8.5-10.1) Procalcitonin < 0.10 ng/mL (0.00-0.10) Vancomycin Level Trough 12.0 mcg/mL (10.0-20.0) Vancomycin Last Dose Date 04/13/18 Vancomycin Last Dose Time 2300 Glucose (Fingerstick) 330 mg/dL (70-99) Review of Systems Review of Systems Pertinent as per history of present illness otherwise improved system is negative Assessment and Plan Assessmemt and Plan Problems Medical Problems: (1) HCAP (healthcare-associated pneumonia) Status: Acute Comment Review of Relevant I have reviewed the following items bora (where applicable) has been applied. Labs Laboratory Tests Test 04/12/18 19:57 04/12/18 20:10 04/12/18 20:12 04/13/18 08:13 Influenza Type A Antigen Negative (NEGATIVE) Influenza Type B Antigen Negative (NEGATIVE) White Blood Count 4.6 x10^3/uL (4.0-11.0) Red Blood Count 4.31 x10^6/uL (3.50-5.40) Hemoglobin 12.5 g/dL (12.0-15.5) Hematocrit 36.8 % (36.0-47.0) Mean Corpuscular Volume 86 fL (79-100) Mean Corpuscular Hemoglobin 29 pg (25-35) Mean Corpuscular Hemoglobin Concent 34 g/dL (31-37) Red Cell Distribution Width 14.8 % (11.5-14.5) Platelet Count 154 x10^3/uL (140-400) Neutrophils (%) (Auto) 76 % (31-73) Lymphocytes (%) (Auto) 15 % (24-48) Monocytes (%) (Auto) 7 % (0-9) Eosinophils (%) (Auto) 2 % (0-3) Basophils (%) (Auto) 0 % (0-3) Neutrophils # (Auto) 3.5 x10^3uL (1.8-7.7) Lymphocytes # (Auto) 0.7 x10^3/uL (1.0-4.8) Monocytes # (Auto) 0.3 x10^3/uL (0.0-1.1) Eosinophils # (Auto) 0.1 x10^3/uL (0.0-0.7) Basophils # (Auto) 0.0 x10^3/uL (0.0-0.2) Sodium Level 137 mmol/L (136-145) Potassium Level 3.9 mmol/L (3.5-5.1) Chloride Level 97 mmol/L (98-107) Carbon Dioxide Level 27 mmol/L (21-32) Anion Gap 13 (6-14) Blood Urea Nitrogen 12 mg/dL (7-20) Creatinine 0.9 mg/dL (0.6-1.0) Estimated GFR (Cockcroft-Gault) 65.8 BUN/Creatinine Ratio 13 (6-20) Glucose Level 287 mg/dL (70-99) Lactic Acid Level 1.1 mmol/L (0.4-2.0) Calcium Level 8.9 mg/dL (8.5-10.1) Total Bilirubin 0.8 mg/dL (0.2-1.0) Aspartate Amino Transf (AST/SGOT) 34 U/L (15-37) Alanine Aminotransferase (ALT/SGPT) 54 U/L (14-59) Alkaline Phosphatase 137 U/L (46-116) AH-Xen-J-Type Natriuretic Peptide 168 pg/mL (0-124) Total Protein 7.2 g/dL (6.4-8.2) Albumin 3.3 g/dL (3.4-5.0) Albumin/Globulin Ratio 0.8 (1.0-1.7) Group A Streptococcus Rapid Negative (NEGATIVE) Glucose (Fingerstick) 366 mg/dL (70-99) Test 04/13/18 10:10 04/13/18 11:14 04/13/18 14:16 04/13/18 17:10 White Blood Count 4.4 x10^3/uL (4.0-11.0) Red Blood Count 4.08 x10^6/uL (3.50-5.40) Hemoglobin 11.6 g/dL (12.0-15.5) Hematocrit 36.1 % (36.0-47.0) Mean Corpuscular Volume 88 fL (79-100) Mean Corpuscular Hemoglobin 28 pg (25-35) Mean Corpuscular Hemoglobin Concent 32 g/dL (31-37) Red Cell Distribution Width 14.8 % (11.5-14.5) Platelet Count 131 x10^3/uL (140-400) Neutrophils (%) (Auto) 90 % (31-73) Lymphocytes (%) (Auto) 8 % (24-48) Monocytes (%) (Auto) 1 % (0-9) Eosinophils (%) (Auto) 0 % (0-3) Basophils (%) (Auto) 0 % (0-3) Neutrophils # (Auto) 4.0 x10^3uL (1.8-7.7) Lymphocytes # (Auto) 0.4 x10^3/uL (1.0-4.8) Monocytes # (Auto) 0.1 x10^3/uL (0.0-1.1) Eosinophils # (Auto) 0.0 x10^3/uL (0.0-0.7) Basophils # (Auto) 0.0 x10^3/uL (0.0-0.2) Segmented Neutrophils % 89 % (35-66) Band Neutrophils % 5 % (0-9) Lymphocytes % 5 % (24-48) Monocytes % 1 % (0-10) Platelet Estimate Adequate (ADEQUATE) Sodium Level 134 mmol/L (136-145) Potassium Level 4.5 mmol/L (3.5-5.1) Chloride Level 95 mmol/L (98-107) Carbon Dioxide Level 23 mmol/L (21-32) Anion Gap 16 (6-14) Blood Urea Nitrogen 20 mg/dL (7-20) Creatinine 1.1 mg/dL (0.6-1.0) Estimated GFR (Cockcroft-Gault) 52.2 Glucose Level 548 mg/dL (70-99) Calcium Level 8.6 mg/dL (8.5-10.1) Glucose (Fingerstick) 551 mg/dL (70-99) 561 mg/dL (70-99) 501 mg/dL (70-99) Test 04/13/18 21:22 04/14/18 07:28 04/14/18 10:30 04/14/18 11:37 Glucose (Fingerstick) 433 mg/dL (70-99) 311 mg/dL (70-99) 330 mg/dL (70-99) Sodium Level 138 mmol/L (136-145) Potassium Level 4.4 mmol/L (3.5-5.1) Chloride Level 101 mmol/L (98-107) Carbon Dioxide Level 27 mmol/L (21-32) Anion Gap 10 (6-14) Blood Urea Nitrogen 25 mg/dL (7-20) Creatinine 1.0 mg/dL (0.6-1.0) Estimated GFR (Cockcroft-Gault) 58.2 Glucose Level 394 mg/dL (70-99) Calcium Level 8.8 mg/dL (8.5-10.1) Procalcitonin < 0.10 ng/mL (0.00-0.10) Vancomycin Level Trough 12.0 mcg/mL (10.0-20.0) Vancomycin Last Dose Date 04/13/18 Vancomycin Last Dose Time 2300 Laboratory Tests Test 04/13/18 14:16 04/13/18 17:10 04/13/18 21:22 04/14/18 07:28 Glucose (Fingerstick) 561 mg/dL (70-99) 501 mg/dL (70-99) 433 mg/dL (70-99) 311 mg/dL (70-99) Test 04/14/18 10:30 04/14/18 11:37 Sodium Level 138 mmol/L (136-145) Potassium Level 4.4 mmol/L (3.5-5.1) Chloride Level 101 mmol/L (98-107) Carbon Dioxide Level 27 mmol/L (21-32) Anion Gap 10 (6-14) Blood Urea Nitrogen 25 mg/dL (7-20) Creatinine 1.0 mg/dL (0.6-1.0) Estimated GFR (Cockcroft-Gault) 58.2 Glucose Level 394 mg/dL (70-99) Calcium Level 8.8 mg/dL (8.5-10.1) Procalcitonin < 0.10 ng/mL (0.00-0.10) Vancomycin Level Trough 12.0 mcg/mL (10.0-20.0) Vancomycin Last Dose Date 04/13/18 Vancomycin Last Dose Time 2300 Glucose (Fingerstick) 330 mg/dL (70-99) Microbiology 04/12/18 Blood Culture - Preliminary, Resulted NO GROWTH AFTER 1 DAY Medications Current Medications Sodium Chloride 1,000 ml @ 1,000 mls/hr Q1H IV Last administered on 04/12/18at 20:11; Start 04/12/18 at 20:15; Stop 04/12/18 at 21:14; Status DC Albuterol/ Ipratropium (Duoneb) 3 ml 1X ONCE NEB Last administered on at 20:08; Start 04/12/18 at 20:15; Stop 04/12/18 at 20:16; Status DC Ondansetron HCl (Zofran) 4 mg 1X ONCE IM ; Start 04/12/18 at 20:15; Stop at 20:16; Status Cancel Ondansetron HCl (Zofran) 4 mg STK-MED ONCE .ROUTE ; Start 04/12/18 at 20:07; Stop 04/12/18 at 20:08; Status DC Ondansetron HCl (Zofran) 4 mg 1X ONCE IV Last administered on 04/12/18at 20:11 ; Start 04/12/18 at 20:15; Stop 04/12/18 at 20:16; Status DC Piperacillin Sod/ Tazobactam Sod 3.375 gm/Sodium Chloride 50 ml @ 100 mls/hr 1X ONCE IV ; Start 04/12/18 at 22:15; Stop 04/12/18 at 22:44; Status Cancel Vancomycin HCl 250 ml @ 250 mls/hr 1X ONCE IV ; Start 04/12/18 at 22:15; Stop 04/12/18 at 23:14; Status Cancel Ondansetron HCl (Zofran) 4 mg PRN Q8HRS PRN IV NAUSEA/VOMITING; Start 04/12/18 at 22:00; Stop 04/12/18 at 22:21; Status DC Morphine Sulfate (Morphine Sulfate) 2 mg PRN Q2HR PRN IV PAIN; Start 04/12/18 at 22:00; Stop 04/13/18 at 21:59; Status DC Acetaminophen (Tylenol) 650 mg PRN Q4HRS PRN PO FEVER; Start 04/12/18 at 22:00 ; Stop 04/12/18 at 22:21; Status DC Albuterol/ Ipratropium (Duoneb) 3 ml RTQID NEB Last administered on 04/14/18 07:47; Start 04/13/18 at 08:00; Stop 04/14/18 at 07:59; Status DC Zolpidem Tartrate (Ambien) 10 mg PRN QHS PRN PO INSOMNIA; Start 04/12/18 at 22: 00; Stop 04/12/18 at 22:21; Status DC Piperacillin Sod/ Tazobactam Sod 4.5 gm/Sodium Chloride 100 ml @ 200 mls/hr Q6HRS IV Last administered on 04/14/18at 11:28; Start 04/13/18 at 00:00 Vancomycin HCl (Vanco Per Pharmacy) 1 each PRN DAILY PRN MC SEE COMMENTS Last administered on 04/14/18 11:31; Start 04/12/18 at 22:00 Ringer's Solution 1,000 ml @ 100 mls/hr Q10H IV Last administered on at 23:38; Start 04/12/18 at 22:00; Stop 04/13/18 at 07:59; Status DC Ondansetron HCl (Zofran) 4 mg PRN Q6HRS PRN IV NAUSEA/VOMITING; Start 04/12/18 at 22:00 Zolpidem Tartrate (Ambien) 5 mg PRN QHS PRN PO INSOMNIA, MAY REPEAT IN 1HR Last administered on 04/13/18at 23:26; Start 04/12/18 at 22:00 Info (Non-Icu Electrolyte Protocol) 1 ea PRN DAILY PRN MC SEE COMMENTS; Start 04/12/18 at 22:00 Acetaminophen (Tylenol) 650 mg PRN Q6HRS PRN PO Headaches, Temp > 101.5F; Start 04/12/18 at 22:00 Magnesium Hydroxide (Milk Of Magnesia) 2,400 mg PRN Q12HR PRN PO CONSTIPATION; Start 04/12/18 at 22:00 Lactulose (Lactulose) 20 gm PRN Q12HR PRN PO CONSTIPATION; Start 04/12/18 at 22 :00 Amlodipine Besylate (Norvasc) 5 mg DAILY PO Last administered on 04/14/18 08: 35; Start 04/13/18 at 04:00 Atorvastatin Calcium (Lipitor) 20 mg HS PO Last administered on 04/13/18 21:48 ; Start 04/13/18 at 21:00 Glimepiride (Amaryl) 6 mg DAILY PO Last administered on 04/14/18 08:32; Start 04/13/18 at 09:00 Meloxicam (Mobic) 7.5 mg DAILY PO Last administered on 04/13/18 08:54; Start 04/13/18 at 09:00 Cyclobenzaprine HCl (Flexeril) 10 mg TID PO Last administered on 04/13/18 21: 48; Start 04/13/18 at 09:00 Linagliptin (Tradjenta) 5 mg DAILY PO Last administered on 04/14/18 08:32; Start 04/13/18 at 09:00 Non-Formulary Medication (Zolpidem Tartrate (Ambien)) 1 tab QHS PRN PO INSOMNIA ; Start 04/12/18 at 22:00; Status UNV Guaifenesin/ Codeine Phosphate (Robitussin Ac) 5 ml PRN Q6HRS PRN PO COUGH; Start 04/12/18 at 22:15; Stop 04/12/18 at 22:55; Status DC Vancomycin HCl 2 gm/Sodium Chloride 500 ml @ 250 mls/hr 1X ONCE IV Last administered on 04/12/18at 22:55; Start 04/12/18 at 22:30; Stop 04/13/18 at 00:29 ; Status DC Methylprednisolone Sodium Succinate (SOLU-Medrol 125MG VIAL) 125 mg Q8H IV Last administered on 04/13/18 06:12; Start 04/12/18 at 22:15; Stop 04/13/18 at 10:52; Status DC Guaifenesin (Mucinex) 600 mg Q12H PO Last administered on 04/14/18 10:52; Start 04/12/18 at 23:00 Guaifenesin/ Codeine Phosphate (Robitussin Ac) 5 ml PRN Q6HRS PRN PO COUGH Last administered on 04/14/18 08:32; Start 04/12/18 at 22:30 Zolpidem Tartrate (Ambien) 10 mg PRN QHS PRN PO INSOMNIA; Start 04/12/18 at 22: 30; Status UNV Insulin Human Lispro (HumaLOG) 0-9 UNITS TIDWMEALS SQ Last administered on 04/14 11:42; Start 04/13/18 at 08:00 Dextrose (Dextrose 50%-Water Syringe) 12.5 gm PRN Q15MIN PRN IV SEE COMMENTS; Start 04/12/18 at 22:30 Vancomycin HCl 2 gm/Sodium Chloride 500 ml @ 250 mls/hr Q12H IV Last administered on 04/14/18 12:50; Start 04/13/18 at 11:00 Vancomycin HCl (Vancomycin Trough Level) 1 each 1X ONCE MC Last administered on 04/14/18 10:30; Start 04/14/18 at 10:30; Stop 04/14/18 at 10:31; Status DC Methylprednisolone Sodium Succinate (SOLU-Medrol 40MG VIAL) 40 mg Q12HR IV Last administered on 04/14/18 08:37; Start 04/13/18 at 21:00 Insulin Human Lispro (HumaLOG) 12 units 1X ONCE SQ Last administered on 11:26; Start 04/13/18 at 11:15; Stop 04/13/18 at 11:16; Status DC Lactobacillus Rhamnosus (Culturelle) 1 cap BID PO Last administered on 08:33; Start 04/13/18 at 21:00 Insulin Glargine (Lantus) 35 units Q12HR SQ Last administered on 04/13/18at 15: 03; Start 04/13/18 at 14:45; Stop 04/13/18 at 18:55; Status DC Insulin Glargine (Lantus) 35 units Q12HR SQ Last administered on 04/14/18 08: 57; Start 04/14/18 at 07:30 Insulin Human Lispro (HumaLOG) 9 units 1X ONCE SQ Last administered on 21:59; Start 04/13/18 at 22:00; Stop 04/13/18 at 22:01; Status DC Albuterol/ Ipratropium (Duoneb) 3 ml RTQID NEB Last administered on 2/24/19at 12:57; Start 04/14/18 at 16:00 Albuterol Sulfate (Ventolin Neb Soln) 2.5 mg PRN Q2HRS PRN NEB SHORTNESS OF BREATH; Start 04/14/18 at 12:30 Active Scripts Active Reported Multivitamins (Multivitamin) 1 Each Tablet 1 Tab PO DAILY Linzess (Linaclotide) 145 Mcg Capsule 145 Mcg PO DAILY07 Aldactone (Spironolactone) 25 Mg Tablet 1 Tab PO DAILY Diphenhydramine Hcl 50 Mg Capsule 1 Cap PO QHS PRN Folbic Rf Tablet (B12/Levomefolate Calcium/B-6) 1 Each Tablet 1 Each PO Amlodipine Besylate 5 Mg Tablet 5 Mg PO DAILY Ambien (Zolpidem Tartrate) 10 Mg Tablet 1 Tab PO QHS PRN Glimepiride 2 Mg Tablet 4 Mg PO BID Lipitor (Atorvastatin Calcium) 20 Mg Tablet 1 Tab PO DAILY Januvia (Sitagliptin Phosphate) 100 Mg Tablet 1 Tab PO DAILY Vitals/I & O Vital Sign - Last 24 Hours 04/13/18 04/13/18 04/13/18 04/13/18 15:00 16:05 19:35 20:00 Temp 97.8 98.1 97.8 98.1 Pulse 95 94 Resp 19 B/P (MAP) 141/70 (93) 131/65 (87) Pulse Ox 94 92 93 O2 Delivery Nasal Cannula Nasal Cannula Nasal Cannula Nasal Cannula O2 Flow Rate 3.0 4.0 3.0 4.0 04/13/18 04/13/18 04/14/18 04/14/18 21:07 23:10 07:00 07:49 Temp 98.0 97.8 98.0 97.8 Pulse 89 84 Resp 18 18 B/P (MAP) 172/81 (111) 160/74 (102) Pulse Ox 94 94 97 98 O2 Delivery Nasal Cannula Nasal Cannula Nasal Cannula Nasal Cannula O2 Flow Rate 4.0 4.0 4.0 2.0 04/14/18 04/14/18 04/14/18 08:35 11:06 13:00 Temp 97.9 97.9 Pulse 91 81 Resp 18 B/P (MAP) 179/86 165/80 (108) Pulse Ox 94 98 O2 Delivery Nasal Cannula Nasal Cannula O2 Flow Rate 4.0 2.0 Intake and Output 04/13/18 04/13/18 04/14/18 15:00 23:00 07:00 Intake Total 400 ml 200 ml Output Total 600 ml 750 ml 1 ml Balance -600 ml -350 ml 199 ml ELIJAH JAMIL MD Apr 14, 2018 13:35
[2018-04-14] MEDS: ACETAMINOPHEN 325 MG TABLET. PO PRN (14:36)
[2018-04-14 14:50] VITALS: BP 167/78
[2018-04-14 19:51] VITALS: BP 149/68
[2018-04-14] MEDS ORDERED: guaiFENesin/CODEINE 100mg/10mg 5 ML LIQUID PO PRN (21:00)
[2018-04-14] MEDS ORDERED: INSULIN LISPRO 300 UNITS/3 ML INSULN.PEN. SQ ONE (21:00)
[2018-04-14] MEDS: ATORVASTATIN CALCIUM 20 MG TABLET PO SCH (21:34)
[2018-04-14] MEDS: ZOLPIDEM 5 MG TABLET. PO PRN ×2 (21:34→22:34)
[2018-04-14 23:05] VITALS: BP 137/71
[2018-04-15 05:23] LABS: CALCIUM 8.5 mg/dL (8.5-10.1); CREATININE 0.9 mg/dL (0.6-1.0); GFR 65.8; POTASSIUM 3.7 mmol/L (3.5-5.1)
[2018-04-15 07:52] VITALS: BP 143/70
[2018-04-15] MEDS: IPRATRPIUM/ALBUTEROL 0.5/2.5MG 3 ML NEBU. NEB SCH ×4 (08:11→20:17)
[2018-04-15] MEDS: CYCLOBENZAPRINE 10 MG TABLET. PO SCH ×3 (09:00→20:59)
[2018-04-15] MEDS: MELOXICAM 7.5 MG TABLET PO SCH (09:00)
[2018-04-15] MEDS: INSULIN GLARGINE 300 UNITS/3 ML INSULN.PEN. SQ SCH ×3 (09:00→21:23)
[2018-04-15] MEDS: LACTOBACILLUS RHAMNOSUS GG 1 CAPSULE. PO SCH ×2 (09:45→20:59)
[2018-04-15] MEDS: GLIMEPIRIDE 2 MG TABLET. PO SCH (09:45)
[2018-04-15] MEDS: LINAGLIPTIN 5 MG TABLET PO SCH (09:45)
[2018-04-15] MEDS: amLODIPine BESYLATE 5 MG TABLET PO SCH (09:48)
[2018-04-15] MEDS: INSULIN LISPRO 300 UNITS/3 ML INSULN.PEN. SQ SCH ×3 (10:04→18:52)
[2018-04-15 10:47] VITALS: BP 128/68
--- NOTE | 2018-04-15 11:41 | NUR ---
SS following for discharge planning. SS reviewed pt chart and met with pt's RN. Pt is from home. No discharge needs noted at this time. Pt's RN reported that pt will discharge to home when ready. SS will continue to follow for pending discharge needs.
[2018-04-15 15:01] VITALS: BP 125/61
--- NOTE | 2018-04-15 15:03 | PDOC ---
PROGRESS NOTES Chief Complaint Chief Complaint Healthcare associated pneumonia Type 2 diabetes mellitus insulin requiring currently uncontrolled Hyperglycemia secondary to underlying infectious process and steroid treatment History of essential hypertension currently fairly controlled Morbid obesity BMI of 46 History of dyslipidemia Mild dehydration Plan: vancomycin and Zosyn will be discontinued and levofloxacin orally started Discontinue Solu-Medrol Symptomatic relief of cough will hold off on codeine until the evening Supplemental oxygen Monitor respiratory status Monitor hemodynamics Resume home medications Further recommendations based on the clinical course repeat X ray DVT prophylaxis with SCDs and teds History of Present Illness History of Present Illness Patient clinically much improved compared to admission. The patient has remained her appetite and respiratory distress is resolving. Cough has improved as well and she was able to sleep throughout the night. Plan of care explaiend in detail. Vitals Vitals Vital Signs Date Time Temp Pulse Resp B/P (MAP) Pulse Ox O2 Delivery O2 Flow Rate FiO2 04/15/18 12:20 99 Nasal Cannula 2.0 04/15/18 10:47 97.7 92 19 128/68 (88) 97.7 Physical Exam Physical Exam Gen. sitting in chair in no apparent distress Head: Normal shape atraumatic Eyes: Pupils equal reactive to light and accommodation, normal conjunctivae and lids Ears: Normal shape Nose: Normal shape no trauma Mouth: No exudates of the back of throat no thrush no lesions Neck: Supple no JVD no carotid bruit or lymphadenopathy no thyromegaly Chest: Lungs clear to auscultation with good inspiratory effort no crackles rales or rhonchi Cardiovascular: S1-S2 regular rhythm no murmurs gallops or rubs Abdomen: Bowel sounds present soft nontender no hepatosplenomegaly appreciated sign Extremities: No clubbing no cyanosis no edema peripheral pulses palpated bilaterally Neurological: Alert awake oriented in person time place and situation, cranial nerves II through XII intact, no motor or sensory deficits appreciated Psych: Appropriate mood, cooperative Lungs: Clear Labs LABS Laboratory Tests Test 04/14/18 16:24 04/14/18 20:27 04/14/18 21:40 04/15/18 04:45 Glucose (Fingerstick) 366 mg/dL (70-99) 354 mg/dL (70-99) 375 mg/dL (70-99) Sodium Level 140 mmol/L (136-145) Potassium Level 3.7 mmol/L (3.5-5.1) Chloride Level 104 mmol/L (98-107) Carbon Dioxide Level 27 mmol/L (21-32) Anion Gap 9 (6-14) Blood Urea Nitrogen 21 mg/dL (7-20) Creatinine 0.9 mg/dL (0.6-1.0) Estimated GFR (Cockcroft-Gault) 65.8 Glucose Level 275 mg/dL (70-99) Calcium Level 8.5 mg/dL (8.5-10.1) Test 04/15/18 07:32 04/15/18 11:32 Glucose (Fingerstick) 195 mg/dL (70-99) 225 mg/dL (70-99) Review of Systems Review of Systems hypoxemia otherwise 10 point review of system negative. Assessment and Plan Assessmemt and Plan Problems Medical Problems: (1) HCAP (healthcare-associated pneumonia) Status: Acute Comment Review of Relevant I have reviewed the following items bora (where applicable) has been applied. Labs Laboratory Tests Test 04/13/18 17:10 04/13/18 21:22 04/14/18 07:28 04/14/18 10:30 Glucose (Fingerstick) 501 mg/dL (70-99) 433 mg/dL (70-99) 311 mg/dL (70-99) Sodium Level 138 mmol/L (136-145) Potassium Level 4.4 mmol/L (3.5-5.1) Chloride Level 101 mmol/L (98-107) Carbon Dioxide Level 27 mmol/L (21-32) Anion Gap 10 (6-14) Blood Urea Nitrogen 25 mg/dL (7-20) Creatinine 1.0 mg/dL (0.6-1.0) Estimated GFR (Cockcroft-Gault) 58.2 Glucose Level 394 mg/dL (70-99) Calcium Level 8.8 mg/dL (8.5-10.1) Procalcitonin < 0.10 ng/mL (0.00-0.10) Vancomycin Level Trough 12.0 mcg/mL (10.0-20.0) Vancomycin Last Dose Date 04/13/18 Vancomycin Last Dose Time 2300 Test 04/14/18 11:37 04/14/18 16:24 04/14/18 20:27 04/14/18 21:40 Glucose (Fingerstick) 330 mg/dL (70-99) 366 mg/dL (70-99) 354 mg/dL (70-99) 375 mg/dL (70-99) Test 04/15/18 04:45 04/15/18 07:32 04/15/18 11:32 Sodium Level 140 mmol/L (136-145) Potassium Level 3.7 mmol/L (3.5-5.1) Chloride Level 104 mmol/L (98-107) Carbon Dioxide Level 27 mmol/L (21-32) Anion Gap 9 (6-14) Blood Urea Nitrogen 21 mg/dL (7-20) Creatinine 0.9 mg/dL (0.6-1.0) Estimated GFR (Cockcroft-Gault) 65.8 Glucose Level 275 mg/dL (70-99) Calcium Level 8.5 mg/dL (8.5-10.1) Glucose (Fingerstick) 195 mg/dL (70-99) 225 mg/dL (70-99) Laboratory Tests Test 04/14/18 16:24 04/14/18 20:27 04/14/18 21:40 04/15/18 04:45 Glucose (Fingerstick) 366 mg/dL (70-99) 354 mg/dL (70-99) 375 mg/dL (70-99) Sodium Level 140 mmol/L (136-145) Potassium Level 3.7 mmol/L (3.5-5.1) Chloride Level 104 mmol/L (98-107) Carbon Dioxide Level 27 mmol/L (21-32) Anion Gap 9 (6-14) Blood Urea Nitrogen 21 mg/dL (7-20) Creatinine 0.9 mg/dL (0.6-1.0) Estimated GFR (Cockcroft-Gault) 65.8 Glucose Level 275 mg/dL (70-99) Calcium Level 8.5 mg/dL (8.5-10.1) Test 04/15/18 07:32 04/15/18 11:32 Glucose (Fingerstick) 195 mg/dL (70-99) 225 mg/dL (70-99) Microbiology 04/12/18 Blood Culture - Preliminary, Resulted NO GROWTH AFTER 2 DAYS 04/12/18 Throat Culture - Final, Complete 04/12/18 - Final, Complete Medications Current Medications Sodium Chloride 1,000 ml @ 1,000 mls/hr Q1H IV Last administered on 04/12/18at 20:11; Start 04/12/18 at 20:15; Stop 04/12/18 at 21:14; Status DC Albuterol/ Ipratropium (Duoneb) 3 ml 1X ONCE NEB Last administered on at 20:08; Start 04/12/18 at 20:15; Stop 04/12/18 at 20:16; Status DC Ondansetron HCl (Zofran) 4 mg 1X ONCE IM ; Start 04/12/18 at 20:15; Stop at 20:16; Status Cancel Ondansetron HCl (Zofran) 4 mg STK-MED ONCE .ROUTE ; Start 04/12/18 at 20:07; Stop 04/12/18 at 20:08; Status DC Ondansetron HCl (Zofran) 4 mg 1X ONCE IV Last administered on 04/12/18at 20:11 ; Start 04/12/18 at 20:15; Stop 04/12/18 at 20:16; Status DC Piperacillin Sod/ Tazobactam Sod 3.375 gm/Sodium Chloride 50 ml @ 100 mls/hr 1X ONCE IV ; Start 04/12/18 at 22:15; Stop 04/12/18 at 22:44; Status Cancel Vancomycin HCl 250 ml @ 250 mls/hr 1X ONCE IV ; Start 04/12/18 at 22:15; Stop 04/12/18 at 23:14; Status Cancel Ondansetron HCl (Zofran) 4 mg PRN Q8HRS PRN IV NAUSEA/VOMITING; Start 04/12/18 at 22:00; Stop 04/12/18 at 22:21; Status DC Morphine Sulfate (Morphine Sulfate) 2 mg PRN Q2HR PRN IV PAIN; Start 04/12/18 at 22:00; Stop 04/13/18 at 21:59; Status DC Acetaminophen (Tylenol) 650 mg PRN Q4HRS PRN PO FEVER; Start 04/12/18 at 22:00 ; Stop 04/12/18 at 22:21; Status DC Albuterol/ Ipratropium (Duoneb) 3 ml RTQID NEB Last administered on 04/14/18at 07:47; Start 04/13/18 at 08:00; Stop 04/14/18 at 07:59; Status DC Zolpidem Tartrate (Ambien) 10 mg PRN QHS PRN PO INSOMNIA; Start 04/12/18 at 22: 00; Stop 04/12/18 at 22:21; Status DC Piperacillin Sod/ Tazobactam Sod 4.5 gm/Sodium Chloride 100 ml @ 200 mls/hr Q6HRS IV Last administered on 04/14/18 11:28; Start 04/13/18 at 00:00; Stop at 13:34; Status DC Vancomycin HCl (Vanco Per Pharmacy) 1 each PRN DAILY PRN MC SEE COMMENTS Last administered on 04/14/18at 11:31; Start 04/12/18 at 22:00; Stop 04/14/18 at 13:35 ; Status DC Ringer's Solution 1,000 ml @ 100 mls/hr Q10H IV Last administered on at 23:38; Start 04/12/18 at 22:00; Stop 04/13/18 at 07:59; Status DC Ondansetron HCl (Zofran) 4 mg PRN Q6HRS PRN IV NAUSEA/VOMITING; Start 04/12/18 at 22:00 Zolpidem Tartrate (Ambien) 5 mg PRN QHS PRN PO INSOMNIA, MAY REPEAT IN 1HR Last administered on 04/14/18at 22:34; Start 04/12/18 at 22:00 Info (Non-Icu Electrolyte Protocol) 1 ea PRN DAILY PRN MC SEE COMMENTS; Start 04/12/18 at 22:00 Acetaminophen (Tylenol) 650 mg PRN Q6HRS PRN PO Headaches, Temp > 101.5F Last administered on 04/14/18at 14:36; Start 04/12/18 at 22:00 Magnesium Hydroxide (Milk Of Magnesia) 2,400 mg PRN Q12HR PRN PO CONSTIPATION; Start 04/12/18 at 22:00 Lactulose (Lactulose) 20 gm PRN Q12HR PRN PO CONSTIPATION; Start 04/12/18 at 22 :00 Amlodipine Besylate (Norvasc) 5 mg DAILY PO Last administered on 04/15/18at 09: 48; Start 04/13/18 at 04:00 Atorvastatin Calcium (Lipitor) 20 mg HS PO Last administered on 2/24/19at 21:34 ; Start 04/13/18 at 21:00 Glimepiride (Amaryl) 6 mg DAILY PO Last administered on 04/15/18 09:45; Start 04/13/18 at 09:00 Meloxicam (Mobic) 7.5 mg DAILY PO Last administered on 04/13/18 08:54; Start 04/13/18 at 09:00 Cyclobenzaprine HCl (Flexeril) 10 mg TID PO Last administered on 04/14/18 21: 34; Start 04/13/18 at 09:00 Linagliptin (Tradjenta) 5 mg DAILY PO Last administered on 04/15/18 09:45; Start 04/13/18 at 09:00 Non-Formulary Medication (Zolpidem Tartrate (Ambien)) 1 tab QHS PRN PO INSOMNIA ; Start 04/12/18 at 22:00; Status UNV Guaifenesin/ Codeine Phosphate (Robitussin Ac) 5 ml PRN Q6HRS PRN PO COUGH; Start 04/12/18 at 22:15; Stop 04/12/18 at 22:55; Status DC Vancomycin HCl 2 gm/Sodium Chloride 500 ml @ 250 mls/hr 1X ONCE IV Last administered on 04/12/18at 22:55; Start 04/12/18 at 22:30; Stop 04/13/18 at 00:29 ; Status DC Methylprednisolone Sodium Succinate (SOLU-Medrol 125MG VIAL) 125 mg Q8H IV Last administered on 04/13/18 06:12; Start 04/12/18 at 22:15; Stop 04/13/18 at 10:52; Status DC Guaifenesin (Mucinex) 600 mg Q12H PO Last administered on 04/15/18 12:30; Start 04/12/18 at 23:00 Guaifenesin/ Codeine Phosphate (Robitussin Ac) 5 ml PRN Q6HRS PRN PO COUGH Last administered on 04/14/18 08:32; Start 04/12/18 at 22:30; Stop 04/14/18 at 13:36; Status DC Zolpidem Tartrate (Ambien) 10 mg PRN QHS PRN PO INSOMNIA; Start 04/12/18 at 22: 30; Status UNV Insulin Human Lispro (HumaLOG) 0-9 UNITS TIDWMEALS SQ Last administered on 04/15at 12:39; Start 04/13/18 at 08:00 Dextrose (Dextrose 50%-Water Syringe) 12.5 gm PRN Q15MIN PRN IV SEE COMMENTS; Start 04/12/18 at 22:30 Vancomycin HCl 2 gm/Sodium Chloride 500 ml @ 250 mls/hr Q12H IV Last administered on 04/14/18at 12:50; Start 04/13/18 at 11:00; Stop 04/14/18 at 13:34 ; Status DC Vancomycin HCl (Vancomycin Trough Level) 1 each 1X ONCE MC Last administered on 04/14/18at 10:30; Start 04/14/18 at 10:30; Stop 04/14/18 at 10:31; Status DC Methylprednisolone Sodium Succinate (SOLU-Medrol 40MG VIAL) 40 mg Q12HR IV Last administered on 04/14/18at 08:37; Start 04/13/18 at 21:00; Stop 04/14/18 at 13:34; Status DC Insulin Human Lispro (HumaLOG) 12 units 1X ONCE SQ Last administered on 11:26; Start 04/13/18 at 11:15; Stop 04/13/18 at 11:16; Status DC Lactobacillus Rhamnosus (Culturelle) 1 cap BID PO Last administered on 09:45; Start 04/13/18 at 21:00 Insulin Glargine (Lantus) 35 units Q12HR SQ Last administered on 04/13/18at 15: 03; Start 04/13/18 at 14:45; Stop 04/13/18 at 18:55; Status DC Insulin Glargine (Lantus) 35 units Q12HR SQ Last administered on 04/15/18at 12: 39; Start 04/14/18 at 07:30 Insulin Human Lispro (HumaLOG) 9 units 1X ONCE SQ Last administered on at 21:59; Start 04/13/18 at 22:00; Stop 04/13/18 at 22:01; Status DC Albuterol/ Ipratropium (Duoneb) 3 ml RTQID NEB Last administered on 04/15/18at 12:16; Start 04/14/18 at 16:00 Albuterol Sulfate (Ventolin Neb Soln) 2.5 mg PRN Q2HRS PRN NEB SHORTNESS OF BREATH; Start 04/14/18 at 12:30 Levofloxacin (Levaquin) 750 mg DAILY06 PO Last administered on 04/15/18at 07:00 ; Start 04/14/18 at 14:00 Guaifenesin/ Codeine Phosphate (Robitussin Ac) 5 ml QHS PRN PO COUGH Last administered on 04/14/18at 21:34; Start 04/14/18 at 21:00 Insulin Human Lispro (HumaLOG) 17 units 1X ONCE SQ Last administered on at 21:41; Start 04/14/18 at 21:00; Stop 04/14/18 at 21:01; Status DC Active Scripts Active Reported Multivitamins (Multivitamin) 1 Each Tablet 1 Tab PO DAILY Linzess (Linaclotide) 145 Mcg Capsule 145 Mcg PO DAILY07 Aldactone (Spironolactone) 25 Mg Tablet 1 Tab PO DAILY Diphenhydramine Hcl 50 Mg Capsule 1 Cap PO QHS PRN Folbic Rf Tablet (B12/Levomefolate Calcium/B-6) 1 Each Tablet 1 Each PO Amlodipine Besylate 5 Mg Tablet 5 Mg PO DAILY Ambien (Zolpidem Tartrate) 10 Mg Tablet 1 Tab PO QHS PRN Glimepiride 2 Mg Tablet 4 Mg PO BID Lipitor (Atorvastatin Calcium) 20 Mg Tablet 1 Tab PO DAILY Januvia (Sitagliptin Phosphate) 100 Mg Tablet 1 Tab PO DAILY Vitals/I & O Vital Sign - Last 24 Hours 04/14/18 04/14/18 04/14/18 04/14/18 16:33 19:20 19:51 20:50 Temp 97.9 97.9 Pulse 87 Resp 19 B/P (MAP) 149/68 (95) Pulse Ox 98 98 94 O2 Delivery Nasal Cannula Nasal Cannula Nasal Cannula Nasal Cannula O2 Flow Rate 3.0 2.0 2.0 2.0 04/14/18 04/15/18 04/15/18 04/15/18 23:05 07:52 08:00 08:11 Temp 97.5 97.5 97.5 97.5 Pulse 91 76 Resp 19 19 B/P (MAP) 137/71 (93) 143/70 (94) Pulse Ox 93 97 96 O2 Delivery Nasal Cannula Nasal Cannula Room Air Nasal Cannula O2 Flow Rate 2.0 2.0 2.0 04/15/18 04/15/18 04/15/18 09:48 10:47 12:20 Temp 97.7 97.7 Pulse 76 92 Resp 19 B/P (MAP) 143/70 128/68 (88) Pulse Ox 90 99 O2 Delivery Room Air Nasal Cannula O2 Flow Rate 2.0 Intake and Output 04/14/18 04/14/18 04/15/18 15:00 23:00 07:00 Intake Total 500 ml 500 ml 400 ml Output Total 1070 ml Balance 500 ml -570 ml 400 ml ELIJAH JAMIL MD Apr 15, 2018 15:03
[2018-04-15 19:40] VITALS: BP 133/72
[2018-04-15] MEDS: ATORVASTATIN CALCIUM 20 MG TABLET PO SCH (20:59)
[2018-04-15] MEDS: ZOLPIDEM 5 MG TABLET. PO PRN ×2 (21:16→22:05)
[2018-04-15] MEDS: ACETAMINOPHEN 325 MG TABLET. PO PRN (22:13)
[2018-04-15 22:17] VITALS: BP 139/75
[2018-04-16] MEDS: INSULIN LISPRO 300 UNITS/3 ML INSULN.PEN. SQ SCH ×2 (08:00→12:00)
[2018-04-16 08:20] VITALS: BP 176/83
[2018-04-16] MEDS: amLODIPine BESYLATE 5 MG TABLET PO SCH (08:20)
[2018-04-16] MEDS: LINAGLIPTIN 5 MG TABLET PO SCH (08:20)
[2018-04-16] MEDS: LACTOBACILLUS RHAMNOSUS GG 1 CAPSULE. PO SCH (08:20)
[2018-04-16] MEDS: GLIMEPIRIDE 2 MG TABLET. PO SCH (08:20)
[2018-04-16] MEDS: INSULIN GLARGINE 300 UNITS/3 ML INSULN.PEN. SQ SCH (08:27)
[2018-04-16] MEDS: CYCLOBENZAPRINE 10 MG TABLET. PO SCH (08:28)
[2018-04-16] MEDS: MELOXICAM 7.5 MG TABLET PO SCH (08:28)
[2018-04-16] MEDS: IPRATRPIUM/ALBUTEROL 0.5/2.5MG 3 ML NEBU. NEB SCH ×2 (09:00→12:00)
[2018-04-16] MEDS ORDERED: GUAI600T47 PO (09:51)
[2018-04-16] MEDS ORDERED: LEVO750T31 PO (09:51)
[2018-04-16] MEDS ORDERED: guaiFENesin/CODEINE 100mg/10mg PO (09:51)
--- NOTE | 2018-04-16 10:12 | PDOC3 ---
Discharge Summary Visit Information Date of Admission: Apr 12, 2018 Date of Discharge: Apr 16, 2018 Admitting Diagnosis Comment: Healthcare associated pneumonia Type 2 diabetes mellitus insulin requiring currently uncontrolled Hyperglycemia secondary to underlying infectious process History of essential hypertension currently fairly controlled Morbid obesity BMI of 46 History of dyslipidemia Mild dehydration Final Diagnosis Healthcare associated pneumonia Type 2 diabetes mellitus insulin requiring currently uncontrolled Hyperglycemia secondary to underlying infectious process History of essential hypertension currently fairly controlled Morbid obesity BMI of 46 History of dyslipidemia Mild dehydration resovled after fluid resuscitation Brief Hospital Course Allergies Allergies Coded Allergies Type Severity Reaction Last Updated Verified No Known Drug Allergies 02/03/16 No Vital Signs Vital Signs Date Time Temp Pulse Resp B/P (MAP) Pulse Ox O2 Delivery O2 Flow Rate FiO2 04/16/18 09:00 98 Room Air 04/16/18 08:20 93 176/83 04/16/18 08:00 2.0 04/15/18 22:17 98.0 20 98.0 Lab Results Laboratory Tests Test 04/14/18 10:30 04/14/18 11:37 04/14/18 16:24 04/14/18 20:27 Sodium Level 138 mmol/L (136-145) Potassium Level 4.4 mmol/L (3.5-5.1) Chloride Level 101 mmol/L (98-107) Carbon Dioxide Level 27 mmol/L (21-32) Anion Gap 10 (6-14) Blood Urea Nitrogen 25 mg/dL (7-20) Creatinine 1.0 mg/dL (0.6-1.0) Estimated GFR (Cockcroft-Gault) 58.2 Glucose Level 394 mg/dL (70-99) Calcium Level 8.8 mg/dL (8.5-10.1) Procalcitonin < 0.10 ng/mL (0.00-0.10) Vancomycin Level Trough 12.0 mcg/mL (10.0-20.0) Vancomycin Last Dose Date 04/13/18 Vancomycin Last Dose Time 2300 Glucose (Fingerstick) 330 mg/dL (70-99) 366 mg/dL (70-99) 354 mg/dL (70-99) Test 04/14/18 21:40 04/15/18 04:45 04/15/18 07:32 04/15/18 11:32 Glucose (Fingerstick) 375 mg/dL (70-99) 195 mg/dL (70-99) 225 mg/dL (70-99) Sodium Level 140 mmol/L (136-145) Potassium Level 3.7 mmol/L (3.5-5.1) Chloride Level 104 mmol/L (98-107) Carbon Dioxide Level 27 mmol/L (21-32) Anion Gap 9 (6-14) Blood Urea Nitrogen 21 mg/dL (7-20) Creatinine 0.9 mg/dL (0.6-1.0) Estimated GFR (Cockcroft-Gault) 65.8 Glucose Level 275 mg/dL (70-99) Calcium Level 8.5 mg/dL (8.5-10.1) Test 04/15/18 16:22 04/15/18 20:54 04/16/18 08:15 Glucose (Fingerstick) 204 mg/dL (70-99) 292 mg/dL (70-99) 114 mg/dL (70-99) Laboratory Tests Test 04/15/18 11:32 04/15/18 16:22 04/15/18 20:54 04/16/18 08:15 Glucose (Fingerstick) 225 mg/dL (70-99) 204 mg/dL (70-99) 292 mg/dL (70-99) 114 mg/dL (70-99) Brief Hospital Course Patient is a 53-year-old female with multiple comorbidities including hypertension diabetes who was in her usual state of health until approximately one week prior to her admission. The patient was exposed at home to her daughter who had cold-like symptoms and upper respiratory tract infection complains with cough runny nose and generalized malaise. The patient started presenting her symptoms approximately 5-6 days prior to her admission never insidious way. She started self-medicating at home with nebulization therapies and also [id number] medications with some relief of her symptoms but progressively have gotten worse. Patient's father suffers from COPD and she checked her oximetry since her father has one at home and she was at 88%. Patient felt very lightheaded today and unable to even take a shower due to her symptoms. She tried to self medicated as well with nebulization therapy as she got from her daughter who suffers from asthma and due to the progressive nature of her symptoms she decided to come to the emergency department for further evaluation treatment. Prior to her evaluation in the emergency department she had a quantified fever of 101 Fahrenheit at home at the time of my visit the patient is in mild to moderate distress with cough wearing oxygen but fairly comfortable. She has been diagnosed with bilateral pneumonia and will be admitted for further evaluation and treatment No pleurisy reported no signs of toxicity or hemodynamic instability evident. I have discussed the radiographic findings and laboratory data and answered all her concerns to the best of my abilities. Plan of care explained in detail. Patient was admitted to the medical floor where she was started on broad- spectrum antibiotics IV. The patient underwent the following imaging studies chest x-ray on 04/12/2018 patient had bilateral patchy opacities seen. In the feet on 223 confirmed the left long patchy opacities no focal consolidation was noted. The patient responded well to the therapy and steroids, she had somewhat of a problem managing secretions and she was started on chest percussion therapy and guaifenesin extended release. The patient was transitioned to oral antibiotics once the acute phase is over. She required an extra day due to hypoxemia most likely secondary to the ordinary for infection. Given her body habitus it was also encouraged prior to discharge to have a sleep study done in order to determine whether she would benefit from a CPAP or BiPAP machine for nocturnal hypoxemia. The patient was in good spirits to be dismissed home All concerns were addressed to the best of my abilities Gen.: no apparent distress Head: Normal shape atraumatic Eyes: Pupils equal reactive to light and accommodation, normal conjunctivae and lids Ears: Normal shape Nose: Normal shape no trauma Mouth: No exudates of the back of throat no thrush no lesions Neck: Supple no JVD no carotid bruit or lymphadenopathy no thyromegaly Chest: Lungs clear to auscultation with good inspiratory effort no crackles rales or rhonchi Cardiovascular: S1-S2 regular rhythm no murmurs gallops or rubs Abdomen: Bowel sounds present soft nontender no hepatosplenomegaly appreciated sign Extremities: No clubbing no cyanosis no edema peripheral pulses palpated bilaterally Neurological: Alert awake oriented in person time place and situation, cranial nerves II through XII intact, no motor or sensory deficits appreciated Psych: Appropriate mood, cooperative Discharge Information Condition at Discharge: Improved Follow Up: Weeks (primary care physician in one week ) Disposition/Orders: D/C to Home Scheduled Amlodipine Besylate (Amlodipine Besylate) 5 Mg Tablet, 5 MG PO DAILY, (Reported) Entered as Reported by: JOON BLACKMAN on 12/03/17 0848 Last Action: Continued on 04/12/182202 by ELIJAH JAMIL MD Atorvastatin Calcium (Lipitor) 20 Mg Tablet, 1 TAB PO DAILY, #90 Ref 1 (Reported ) Entered as Reported by: SANTHOSH MIRANDA on 02/02/16 1100 Last Action: Continued on 04/12/182202 by ELIJAH JAMIL MD Glimepiride (Glimepiride) 2 Mg Tablet, 4 MG PO BID for BLOOD GLUCOSE, #30 Ref 5 (Reported) Entered as Reported by: SANTHOSH MIRANDA on 02/02/161099 Last Action: Edited on 04/13/184 by Ventura Garcia Guaifenesin (Mucinex) 600 Mg Tablet.er, 600 MG PO Q12H for cough for 7 Days, #14 Prescribed by: ELIJAH JAMIL MD on 04/16/18 0951 Levofloxacin (Levaquin) 750 Mg Tablet, 750 MG PO DAILY06 for pneumonia for 3 Days, #3 Prescribed by: ELIJAH JAMIL MD on 04/16/18 0951 Linaclotide (Linzess) 145 Mcg Capsule, 145 MCG PO DAILY07 for IRRITABLE BOWEL, ( Reported) Entered as Reported by: Ventura Garcia on 04/13/184 Last Action: New Order on 04/13/184 by Ventura Garcia Multivitamin (Multivitamins) 1 Each Tablet, 1 TAB PO DAILY for VITAMIN, #90 Ref 3 (Reported) Entered as Reported by: Ventura Garcia on 04/13/184 Last Action: New Order on 04/13/184 by Ventura Garcia Sitagliptin Phosphate (Januvia) 100 Mg Tablet, 1 TAB PO DAILY, #30 Ref 5 ( Reported) Entered as Reported by: SANTHOSH MIRANDA on 02/02/161099 Last Action: Converted on 04/12/182202 by ELIJAH JAMIL MD Spironolactone (Aldactone) 25 Mg Tablet, 1 TAB PO DAILY for DIURETIC, #90 Ref 1 (Reported) Entered as Reported by: Ventura Garcia on 04/13/184 Last Action: New Order on 04/13/184 by Ventura Garcia Scheduled PRN Diphenhydramine Hcl (Diphenhydramine Hcl) 50 Mg Capsule, 1 CAP PO QHS PRN for SLEEP, #30 Ref 1 (Reported) Entered as Reported by: Ventura Garcia on 04/13/184 Last Action: New Order on 04/13/184 by Ventura Garcia Zolpidem Tartrate (Ambien) 10 Mg Tablet, 1 TAB PO QHS PRN for INSOMNIA, #30 Ref 5 (Reported) Entered as Reported by: MILKA ALDRIDGE on 02/03/16 0841 Last Action: Converted on 04/12/182202 by ELIJAH JAMIL MD [guaiFENesin/CODEINE 100mg/10mg] 5 ML LIQUID, 5 ML PO QHS PRN for COUGH for 7 Days, #60 Prescribed by: ELIJAH JAMIL MD on 04/16/18 0951 Miscellaneous Medications B12/Levomefolate Calcium/B-6 (Folbic Rf Tablet) 1 Each Tablet, 1 EACH PO, ( Reported) Entered as Reported by: JOON BLACKMAN on 12/03/17 0848 Last Action: HELD on 04/12/182202 by MD LOULOU LORA HECTOR M MD Apr 16, 2018 10:12
--- NOTE | 2018-04-16 13:12 | NUR ---
Discharge instructions reviewed with patient. Patient verbalized understanding, prescriptions given to patient. Patient being picked up by daughter.
== END 2018-04-16 13:20 | disposition home or self-care (01) | DRG 194 ==
LOC: ER 19:41 → 2 SOUTH 22:30
PROVIDERS: ADMIT Internal Medicine; ATTEND Internal Medicine
DX: J18.9 Pneumonia, unspecified organism (principal); Z68.42 Body mass index [BMI] 45.0-49.9, adult; Y95 Nosocomial condition; I10 Essential (primary) hypertension; E11.65 Type 2 diabetes mellitus with hyperglycemia; E66.01 Morbid (severe) obesity due to excess calories; E78.5 Hyperlipidemia, unspecified; E86.0 Dehydration; E78.00 Pure hypercholesterolemia, unspecified; Z83.3 Family history of diabetes mellitus; Z82.49 Family history of ischemic heart disease and other diseases of the circulatory system; Z79.4 Long term (current) use of insulin; Z90.710 Acquired absence of both cervix and uterus
CPT/HCPCS: 36415; 71046; 80048; 80053; 80202; 82962; 83605; 83880; 84145; 85007; 85025; 87040; 87070; 87205; 87804; 87880; 94618; 94640; 94667; 94668; 94760; 96361; 96374; J1815; J2405; J2543; J2920; J2930; J3370; J7030; J7040; J7120; J7620; 99285-25

== ENCOUNTER 2018-06-12 10:16 | Day surgery (SDC) | payer OTHER ==
[~2018-06-12 10:16] MED LIST changes: +CHONDROIT-SOD-HYALURONATE KIT. ONE; +CHONDROITIN-SOD-HYALURONATE 0.5 ML DISP.SYRIN. ONE; +CIPROFLOXACIN 0.3% OPHTH SOLUTION 5ML BOTTLE. OS ONE; +DIPH50CA PO; +GUAI600T47 PO; +HYDROmorphone 2 MG/ML VIAL IV PRN; +IV RINGERS,LACTATED 1000ML 1,000 ML IV SCH; +LEVO750T31 PO; +LIDOCAINE 1% PF 2 ML VIAL. ONE; +LIDOCAINE 2% JELLY 6ML IN APPLICATOR. MM SCH; +LINZESS145 MCG PO; +MORPHINE SULFATE 2 MG/ML VIAL. IV PRN; +MULT1TAB52 PO; +NEO/POLYMYX/DEXAMETH OPHTH OINTMENT 3.5GM TUBE. ONE; +PROCHLORPERAZINE 10 MG/2 ML VIAL. IV PRN; +PROPARACAINE 0.5% OPHTH SOLUTION 15ML BOTTLE. OS ONE; +SPIR25TA PO; +fentaNYL PF VIAL 100 MCG/2 ML VIAL IV PRN; +guaiFENesin/CODEINE 100mg/10mg PO
[2018-06-12] MEDS ORDERED: INSULIN REGULAR 100 UNIT/ML 3ML VIAL. SQ ONE (11:15)
[2018-06-12] MEDS: PHENYLEPHRINE 10% OPHTH SOLUTION 5ML BOTTLE. OS SCH ×3 (11:19→11:35)
[2018-06-12] MEDS: CYCLOPENTOLATE 1% OPTH SOLUTION 2ML BOTTLE. OS SCH ×3 (11:19→11:35)
[2018-06-12] MEDS ORDERED: INSULIN LISPRO 100 UNIT/ML 3ML VIAL. SQ ONE (11:30)
[2018-06-12] MEDS ORDERED: MIDAZOLAM HCL/PF 2 MG/2 ML VIAL. ONE (12:13)
[2018-06-12] MEDS ORDERED: PROPOFOL 20 ML IV ONE (12:18)
[2018-06-12 12:44] VITALS: BP 163/96
--- NOTE | 2018-06-12 13:18 | OP ---
DATE OF SURGERY: 06/12/2018 PREOPERATIVE DIAGNOSES: 1. Cataract of the left eye. 2. Diabetic retinopathy with macular edema, followed by [facility] of the left eye. PROCEDURE: Phacoemulsification with posterior chamber intraocular lens implantation of the left eye. DESCRIPTION OF PROCEDURE: The left eye was prepped with Betadine in the usual sterile fashion and draped. A paracentesis was performed followed by instillation of preservative-free lidocaine admixed with phenylephrine and then balanced salt solution. Viscoelastic was injected in the anterior chamber and a temporal clear corneal incision was made. A capsulorrhexis was performed followed by hydrodissection and expression of the nucleus to the pupillary plane. Viscoelastic was placed both anterior and posterior to the nucleus and it was evacuated with the phacoemulsification handpiece. The I/A handpiece was used to remove the remainder of the cortex and viscoelastic was injected in the capsular bag. An Morgan, Model [id number] with a power of 20.0 diopters was placed into the capsular bag. Balanced salt solution was used to hydrate the corneal wounds and the viscoelastic evacuated with the I/A handpiece. Once no leak was noted, Maxitrol was placed on the eye and the eye shielded and the patient was sent to the recovery room uneventfully. ALISON LEMON MD DR: MILKA/nts JOB#: [id number] / [id number]
== END 2018-06-12 13:13 | disposition home or self-care (01) ==
LOC: SURG 10:16
PROVIDERS: ATTEND Ophthalmology
DX: E11.3313 Type 2 diabetes mellitus with moderate nonproliferative diabetic retinopathy with macular edema, bilateral (principal); E11.36 Type 2 diabetes mellitus with diabetic cataract; H25.12 Age-related nuclear cataract, left eye; I10 Essential (primary) hypertension; Z90.710 Acquired absence of both cervix and uterus; Z98.890 Other specified postprocedural states; Z79.899 Other long term (current) drug therapy; Z79.84 Long term (current) use of oral hypoglycemic drugs
CPT/HCPCS: 66984; 82962; C1780; J0171; J0690; J1580; J2250; J2704; J1815

== ENCOUNTER 2018-06-19 10:10 | Day surgery (SDC) | payer OTHER ==
[~2018-06-19 10:10] MED LIST changes: +BALANCED SALT IRRIG OPHTH SOLN 15 ML BOTTLE. ONE; +CIPROFLOXACIN 0.3% OPHTH SOLUTION 5ML BOTTLE. OD ONE; -CIPROFLOXACIN 0.3% OPHTH SOLUTION 5ML BOTTLE. OS ONE; -LIDOCAINE 1% PF 2 ML VIAL. ONE; +ONDANSETRON PF 4 MG/2 ML VIAL. IV PRN; +PROPARACAINE 0.5% OPHTH SOLUTION 15ML BOTTLE. OD ONE; -PROPARACAINE 0.5% OPHTH SOLUTION 15ML BOTTLE. OS ONE
[2018-06-19] MEDS: CYCLOPENTOLATE 1% OPTH SOLUTION 2ML BOTTLE. OD SCH ×3 (10:45→10:55)
[2018-06-19] MEDS: PHENYLEPHRINE 10% OPHTH SOLUTION 5ML BOTTLE. OD SCH ×3 (10:45→10:55)
[2018-06-19] MEDS ORDERED: INSULIN LISPRO 100 UNIT/ML 3ML VIAL. SQ ONE (10:45)
[2018-06-19] MEDS ORDERED: MIDAZOLAM HCL/PF 2 MG/2 ML VIAL. ONE (10:51)
[2018-06-19] MEDS ORDERED: LIDOCAINE 1% PF 2 ML VIAL. ONE (10:54)
[2018-06-19 12:43] VITALS: BP 162/82
--- NOTE | 2018-06-19 14:09 | OP ---
DATE OF SURGERY: 06/19/2018 PREOPERATIVE DIAGNOSIS: Cataract of the right eye. PROCEDURE: 1. Phacoemulsification with posterior chamber intraocular lens implantation of the right eye. 2. Diabetic retinopathy, followed by [facility]. DESCRIPTION OF PROCEDURE: The right eye was prepped with Betadine in the usual sterile fashion and draped. Lidocaine jelly was used as an anesthetic and the lids were draped. A paracentesis was performed followed by instillation of 1% preservative-free lidocaine admixed with phenylephrine and balanced salt solution. The viscoelastic was injected in the anterior chamber. Viscoelastic was injected into the anterior chamber, and a temporal clear corneal incision was made. A capsulorrhexis was performed, followed by hydrodissection and prolapse of the nucleus through the pupillary plane. Viscoelastic was placed both anterior and posterior to the nucleus, and it was evacuated with the phacoemulsification handpiece. The I/A handpiece was used to remove the remainder of the cortex. Viscoelastic was injected in the anterior chamber and an Morgan model [id number] with a power of 20.0 diopters was placed into the capsular bag. Balanced salt solution was used to hydrate the corneal wounds and the viscoelastic evacuated with the I/A handpiece. Once no leaks were noted, Maxitrol was placed on the eye and the eye shielded and the patient was sent to the recovery room uneventfully. ALISON LEMON MD DR: MILKA/gallo JOB#: [id number] / [id number]
== END 2018-06-19 12:55 | disposition home or self-care (01) ==
LOC: SURG 10:10
PROVIDERS: ATTEND Ophthalmology
DX: E11.3311 Type 2 diabetes mellitus with moderate nonproliferative diabetic retinopathy with macular edema, right eye (principal); E11.36 Type 2 diabetes mellitus with diabetic cataract; H25.11 Age-related nuclear cataract, right eye; I10 Essential (primary) hypertension; E78.5 Hyperlipidemia, unspecified; Z90.710 Acquired absence of both cervix and uterus; Z98.890 Other specified postprocedural states; Z79.899 Other long term (current) drug therapy; Z79.2 Long term (current) use of antibiotics; Z79.84 Long term (current) use of oral hypoglycemic drugs; Z98.42 Cataract extraction status, left eye; Z96.1 Presence of intraocular lens
CPT/HCPCS: 66984; 82962; C1780; J0171; J0690; J1580; J2250

== ENCOUNTER → 2019-12-24 | Outpatient (CLI) | payer OTHER ==
[~2019-12-24] MED LIST changes: +AMLO-186 PO; -AMLO5TAB10 PO; -BALANCED SALT IRRIG OPHTH SOLN 15 ML BOTTLE. ONE; -CHONDROIT-SOD-HYALURONATE KIT. ONE; -CHONDROITIN-SOD-HYALURONATE 0.5 ML DISP.SYRIN. ONE; -CIPROFLOXACIN 0.3% OPHTH SOLUTION 5ML BOTTLE. OD ONE; -GLIM2TAB2 PO; +GLIM2TAB7 PO; -HYDROmorphone 2 MG/ML VIAL IV PRN; -IV RINGERS,LACTATED 1000ML 1,000 ML IV SCH; -LIDOCAINE 2% JELLY 6ML IN APPLICATOR. MM SCH; -MORPHINE SULFATE 2 MG/ML VIAL. IV PRN; +MULT-445 PO; -MULT1TAB52 PO; -NEO/POLYMYX/DEXAMETH OPHTH OINTMENT 3.5GM TUBE. ONE; -ONDANSETRON PF 4 MG/2 ML VIAL. IV PRN; -PROCHLORPERAZINE 10 MG/2 ML VIAL. IV PRN; -PROPARACAINE 0.5% OPHTH SOLUTION 15ML BOTTLE. OD ONE; -fentaNYL PF VIAL 100 MCG/2 ML VIAL IV PRN
[2019-12-24 13:52] LABS: BASO # 0.1 x10^3/uL (0.0-0.2); BASO % 1 % (0-3); EOS # 0.1 x10^3/uL (0.0-0.7); EOS % 2 % (0-3); HEMATOCRIT 37.3 % (36.0-47.0); HEMOGLOBIN 12.4 g/dL (12.0-15.5); LYMPH # 1.8 x10^3/uL (1.0-4.8); LYMPH % 26 % (24-48); MEAN CORPUSCULAR HEMOGLOBIN 29 pg (25-35); MEAN CORPUSCULAR HGB CONC 33 g/dL (31-37); MEAN CORPUSCULAR VOLUME 88 fL (79-100); MONO # 0.4 x10^3/uL (0.0-1.1); MONO % 6 % (0-9); NEUT # 4.5 x10^3/uL (1.8-7.7); NEUT % 65 % (31-73); PLATELET COUNT 196 x10^3/uL (140-400); RED BLOOD COUNT 4.25 x10^6/uL (3.50-5.40); RED CELL DISTRIBUTION WIDTH 13.8 % (11.5-14.5)
[2019-12-24 14:16] LABS: FREE T4 1.25 ng/dL (0.76-1.46); THYROID STIM HORMONE (TSH) 1.683 uIU/mL (0.358-3.74)
[2019-12-24 14:24] LABS: CHOLESTEROL/HDL RATIO 3.2
[2019-12-25 01:11] LABS: HEMOGLOBIN A1C 11.9 % (4.8-5.6)
[2019-12-26 09:57] LABS: ALBUMIN 3.9 g/dL (3.4-5.0); ALBUMIN/GLOBULIN RATIO 1.1 (1.0-1.7); CALCIUM 9.4 mg/dL (8.5-10.1); CREATININE 1.1 mg/dL (0.6-1.0); POTASSIUM 4.4 mmol/L (3.5-5.1); TOTAL BILIRUBIN 0.8 mg/dL (0.2-1.0); TOTAL PROTEIN 7.3 g/dL (6.4-8.2)
[2019-12-26 11:12] LABS: ALTERNARIA <0.10 kU/L (Class 0); ASH <0.10 kU/L (Class 0); ASPERGILLUS <0.10 kU/L (Class 0); BERMUDA <0.10 kU/L (Class 0); CAT DANDER <0.10 kU/L (Class 0); CLADOSPORIUM <0.10 kU/L (Class 0); COCKROACH 0.38 kU/L (Class I); COTTONWOOD <0.10 kU/L (Class 0); D PTERONYSSINUS 0.17 kU/L (Class 0/I); DOG DANDER <0.10 kU/L (Class 0); DUST MITE 0.12 kU/L (Class 0/I); ELM <0.10 kU/L (Class 0); MAPLE <0.10 kU/L (Class 0); MOUNTAIN CEDAR <0.10 kU/L (Class 0); MULBERRY <0.10 kU/L (Class 0); NETTLE <0.10 kU/L (Class 0); OAK TREE <0.10 kU/L (Class 0); PENICILLIUM <0.10 kU/L (Class 0); RAST IGE 49 IU/mL (6-495); RUSSIAN THISTLE <0.10 kU/L (Class 0); SHEEP SORREL <0.10 kU/L (Class 0); SHORT RAGWEED <0.10 kU/L (Class 0); TIMOTHY GRASS <0.10 kU/L (Class 0)
== END ==
LOC: LAB 13:23
PROVIDERS: ATTEND Nurse Practitioner Family
DX: E11.65 Type 2 diabetes mellitus with hyperglycemia (principal); E78.5 Hyperlipidemia, unspecified; I10 Essential (primary) hypertension; J31.0 Chronic rhinitis
CPT/HCPCS: 36415; 80053; 80061; 82043; 82306; 82607; 82746; 82785; 83036; 83540; 83550; 84439; 84443; 85025; 86003

== ENCOUNTER → 2020-01-17 | Outpatient (CLI) | payer OTHER | LOC: LAB 12:50 | PROVIDERS: ATTEND Internal Medicine Pulmonary Disease | DX: U07.1 COVID-19 (principal); R53.81 Other malaise; R05 Cough | CPT/HCPCS: U0003 ==

== ENCOUNTER 2020-01-20 11:32 | Inpatient (IN) | payer OTHER ==
[~2020-01-20] VITALS: Ht 170.2 cm; Wt 130.4 kg
[~2020-01-20 11:32] MED LIST changes: +MORPHINE SULFATE 4 MG/ML VIAL. IV PRN
[2020-01-20] MEDS ORDERED: ONDANSETRON PF 4 MG/2 ML VIAL. IVP ONE (12:00)
[2020-01-20] MEDS ORDERED: IV NORMAL SALINE 1000ML BAG 1,000 ML IV ONE (12:00)
[2020-01-20 12:03] LABS: BASO % 1 % (0-3); EOS % 1 % (0-3); HEMATOCRIT 37.1 % (36.0-47.0); HEMOGLOBIN 12.6 g/dL (12.0-15.5); LYMPH # 0.7 x10^3/uL (1.0-4.8); LYMPH % 15 % (24-48); MEAN CORPUSCULAR HEMOGLOBIN 29 pg (25-35); MEAN CORPUSCULAR HGB CONC 34 g/dL (31-37); MEAN CORPUSCULAR VOLUME 87 fL (79-100); MONO # 0.3 x10^3/uL (0.0-1.1); MONO % 7 % (0-9); NEUT # 3.5 x10^3/uL (1.8-7.7); NEUT % 77 % (31-73); PLATELET COUNT 126 x10^3/uL (140-400); RED BLOOD COUNT 4.28 x10^6/uL (3.50-5.40); WHITE BLOOD COUNT 4.6 x10^3/uL (4.0-11.0)
[2020-01-20 12:11] LABS: POTASSIUM 4.2 mmol/L (3.5-5.1)
[2020-01-20 12:17] LABS: ALBUMIN 3.2 g/dL (3.4-5.0); ALBUMIN/GLOBULIN RATIO 0.9 (1.0-1.7); MAGNESIUM 1.9 mg/dL (1.8-2.4); TOTAL BILIRUBIN 0.6 mg/dL (0.2-1.0); TOTAL PROTEIN 6.8 g/dL (6.4-8.2)
[2020-01-20] MEDS ORDERED: MORPHINE SULFATE 4 MG/ML VIAL. IV ONE (13:00)
--- NOTE | 2020-01-20 13:27 | RAD ---
INDICATION: Reason: COVID 19 INFECTION, SOA, COUGH / Spl. Instructions: / History: COMPARISON: March 2018 FINDINGS: Single view of chest obtained. Cardiac silhouette is similar to prior. Mild patchy opacity at the left lung base with interstitial prominence bilaterally IMPRESSION: * Patchy opacity left lung base could be from atelectasis or infiltrate. Electronically signed by: Solis Riggs MD (01/20/2020 1:24 PM) [id number]
--- NOTE | 2020-01-20 14:49 | PHYS DOC ---
Past Medical History Past Medical History: Diabetes-Type II, High Cholesterol, Hypertension, Other Additional Past Medical Histor: Insomnia Past Surgical History: Hysterectomy, Tonsillectomy, Other Additional Past Surgical Histo: L knee, RIGHT SHOULDER, myomectomy Smoking Status: Never Smoker Alcohol Use: None Drug Use: None General Adult EDM: Chief Complaint: NAUSEA/VOMITING/DIARRHA HPI: HPI: Patient is a 54 year old female who presented to ER for evaluation of nausea vomiting, epigastric abdominal pain, cough, trouble breathing since last week. She was tested positive for COVID-19 infection on 01/17/2020. She has been staying home, her symptoms did get worse, having trouble breathing when she walks. Patient feels dehydrated because she had not been able to keep it in there. Patient has a history of diabetic and hypertension. Review of Systems: Review of Systems: Constitutional: Denies fever or chills. [] Eyes: Denies change in visual acuity. [] HENT: Denies nasal congestion or sore throat. [] Respiratory: Positive for cough and trouble breathing. Cardiovascular: Denies chest pain or edema. [] GI: Positive for abdominal pain, nausea vomiting : Denies dysuria. [] Musculoskeletal: Positive for back pain, joint pain, muscle pain. Integument: Denies rash. [] Neurologic: Denies headache, focal weakness or sensory changes. [] Endocrine: Denies polyuria or polydipsia. [] Lymphatic: Denies swollen glands. [] Psychiatric: Denies depression or anxiety. [] Heart Score: Risk Factors: Risk Factors: DM, Current or recent (<one month) smoker, HTN, HLP, family history of CAD, obesity. Risk Scores: Score 0 - 3: 2.5% MACE over next 6 weeks - Discharge Home Score 4 - 6: 20.3% MACE over next 6 weeks - Admit for Clinical Observation Score 7 - 10: 72.7% MACE over next 6 weeks - Early Invasive Strategies Current Medications: Current Medications Medications (Trade) Dose Ordered Sig/Jasper Start Time Stop Time Status Last Admin Dose Admin Morphine Sulfate (Morphine Sulfate) 4 mg 1X ONCE 01/20/20 13:00 01/20/20 13:01 DC 01/20/20 12:54 4 MG Ondansetron HCl (Zofran) 8 mg 1X ONCE 01/20/20 12:00 01/20/20 12:01 DC 01/20/20 12:00 8 MG Sodium Chloride 1,000 ml @ 1,000 mls/hr 1X ONCE 01/20/20 12:00 01/20/20 12:59 DC 01/20/20 12:00 1,000 MLS/HR Allergies: Allergies: Allergies Coded Allergies Type Severity Reaction Last Updated Verified No Known Drug Allergies 06/19/18 No Physical Exam: PE: Constitutional: Well developed, well nourished, no acute distress, non-toxic appearance. [] HENT: Normocephalic, atraumatic, bilateral external ears normal, oropharynx moist, no oral exudates, nose normal. [] Eyes: PERRLA, EOMI, conjunctiva normal, no discharge. [] Neck: Normal range of motion, no tenderness, supple, no stridor. [] Cardiovascular:Heart rate regular rhythm, no murmur [] Lungs & Thorax: Bilateral breath sounds clear to auscultation [] Abdomen: Bowel sounds normal, soft, no tenderness, no masses, no pulsatile clotilde s. [] Skin: Warm, dry, no erythema, no rash. [] Back: No tenderness, no CVA tenderness. [] Extremities: No tenderness, no cyanosis, no clubbing, ROM intact, no edema. [] Neurologic: Alert and oriented X 3, normal motor function, normal sensory function, no focal deficits noted. [] Psychologic: Affect normal, judgement normal, mood normal. [] Current Patient Data: Labs: Laboratory Tests Test 01/20/20 11:50 White Blood Count 4.6 x10^3/uL (4.0-11.0) Red Blood Count 4.28 x10^6/uL (3.50-5.40) Hemoglobin 12.6 g/dL (12.0-15.5) Hematocrit 37.1 % (36.0-47.0) Mean Corpuscular Volume 87 fL (79-100) Mean Corpuscular Hemoglobin 29 pg (25-35) Mean Corpuscular Hemoglobin Concent 34 g/dL (31-37) Red Cell Distribution Width 14.0 % (11.5-14.5) Platelet Count 126 x10^3/uL (140-400) L Neutrophils (%) (Auto) 77 % (31-73) H Lymphocytes (%) (Auto) 15 % (24-48) L Monocytes (%) (Auto) 7 % (0-9) Eosinophils (%) (Auto) 1 % (0-3) Basophils (%) (Auto) 1 % (0-3) Neutrophils # (Auto) 3.5 x10^3/uL (1.8-7.7) Lymphocytes # (Auto) 0.7 x10^3/uL (1.0-4.8) L Monocytes # (Auto) 0.3 x10^3/uL (0.0-1.1) Eosinophils # (Auto) 0.0 x10^3/uL (0.0-0.7) Basophils # (Auto) 0.0 x10^3/uL (0.0-0.2) Sodium Level 138 mmol/L (136-145) Potassium Level 4.2 mmol/L (3.5-5.1) Chloride Level 102 mmol/L (98-107) Carbon Dioxide Level 24 mmol/L (21-32) Anion Gap 12 (6-14) Blood Urea Nitrogen 19 mg/dL (7-20) Creatinine 1.0 mg/dL (0.6-1.0) Estimated GFR (Cockcroft-Gault) 58.0 BUN/Creatinine Ratio 19 (6-20) Glucose Level 331 mg/dL (70-99) H Calcium Level 9.0 mg/dL (8.5-10.1) Magnesium Level 1.9 mg/dL (1.8-2.4) Total Bilirubin 0.6 mg/dL (0.2-1.0) Aspartate Amino Transferase (AST) 23 U/L (15-37) Alanine Aminotransferase (ALT) 36 U/L (14-59) Alkaline Phosphatase 136 U/L (46-116) H Troponin I Quantitative < 0.017 ng/mL (0.000-0.055) DM-Ysy-B-Type Natriuretic Peptide 83 pg/mL (0-124) Total Protein 6.8 g/dL (6.4-8.2) Albumin 3.2 g/dL (3.4-5.0) L Albumin/Globulin Ratio 0.9 (1.0-1.7) L Lipase 88 U/L (73-393) Laboratory Tests 01/20/20 11:50 Laboratory Tests 01/20/20 11:50 Vital Signs: Vital Signs Date Time Temp Pulse Resp B/P (MAP) Pulse Ox O2 Delivery O2 Flow Rate FiO2 01/20/20 13:39 94 20 176/119 (138) 95 Room Air 01/20/20 11:34 98.1 98.1 EKG: EKG: [] Radiology/Procedures: Radiology/Procedures: [][facility] [address] [place] [address] IMAGING REPORT Signed PATIENT: NAZANIN SIMMONS ACCOUNT: [id number] : 1965 LOCATION: ER AGE: 54 SEX: F EXAM STATUS: REG ER ORD. PHYSICIAN: GIO SELLERS DO REASON: COVID 19 INFECTION, SOA, COUGH PROCEDURE: CHEST AP ONLY INDICATION: Reason: COVID 19 INFECTION, SOA, COUGH / Spl. Instructions: / History: COMPARISON: March 2018 FINDINGS: Single view of chest obtained. Cardiac silhouette is similar to prior. Mild patchy opacity at the left lung base with interstitial prominence bilaterally IMPRESSION: * Patchy opacity left lung base could be from atelectasis or infiltrate. Electronically signed by: Justus Hernandes MD (01/20/2020 1:24 PM) [id number] DICTATED and SIGNED BY: JUSTUS HERNANDES MD DATE: 01/20/20 [id number] [facility] [address] [place] [address] IMAGING REPORT Signed PATIENT: NAZANIN SIMMONS ACCOUNT: [id number] : 1965 LOCATION: [address] [place] [address] AGE: 54 SEX: F EXAM STATUS: ADM IN ORD. PHYSICIAN: GIO SELLERS DO REASON: NAUSEA, VOMITING, EPIGASTRIC PAIN, RADIATING TO SHOULDERS. PROCEDURE: ABDOMEN LTD EXAM: Abdomen sonogram. HISTORY: Nausea, vomiting and epigastric pain. TECHNIQUE: Sonographic imaging of the abdomen was performed. COMPARISON: None. FINDINGS: The liver is enlarged. There is hepatic steatosis. No focal hepatic lesion is seen. As a 3 mm nonmobile echogenic structure along the gallbladder wall, likely a polyp or nonmobile gallstone. There is no cholecystitis. The common bile duct is normal in caliber. The right kidney is unremarkable. The pancreas is obscured due to bowel gas. The inferior vena cava is patent. IMPRESSION: 1. Hepatomegaly and hepatic steatosis. 2. 3 mm gallbladder polyp or nonmobile gallstone. Electronically signed by: Belgica Arellano MD (01/20/2020 3:51 PM) [facility] DICTATED and SIGNED BY: BELGICA ARELLANO MD DATE: 01/20/20 [id number] Course & Med Decision Making: Course & Med Decision Making Pertinent Labs and Imaging studies reviewed. (See chart for details) Patient is a 54-year-old female who was recently diagnosed with COVID-19 infection who presented to ER for nausea vomiting and abdominal pain. Patient was given pain medication with nausea medication in the ER, she continues to feel nauseous, feels really weak. Her chest x-ray shows slight patchy infiltration on the left lower lobe. Her oxygen saturation 100% on room air. Abdominal ultrasound show polyp in her gallbladder or nonmobile gallstone. Patient will need to be admitted for IV fluids due to dehydration. Dragon Disclaimer: Dragon Disclaimer: This electronic medical record was generated, in whole or in part, using a voice recognition dictation system. Departure Departure Impression: Primary Impression: COVID-19 virus infection Additional Impressions: Nausea & vomiting Dehydration Hyperglycemia Disposition: 09 ADMITTED INPT THIS HOSP Admitting Physician: DAVID (Dr. Alonso) Condition: STABLE Referrals: RONNY ATKINSON APRN (PCP) GIO SELLERS DO Jan 20, 2020 14:49
[2020-01-20] MEDS ORDERED: METOCLOPRAMIDE HCL 10 MG/2 ML VIAL. IVP ONE (15:00)
[2020-01-20] MEDS: MORPHINE SULFATE 4 MG/ML VIAL. IV ONE ×2 (15:00→15:30)
--- NOTE | 2020-01-20 15:53 | RAD ---
EXAM: Abdomen sonogram. HISTORY: Nausea, vomiting and epigastric pain. TECHNIQUE: Sonographic imaging of the abdomen was performed. COMPARISON: None. FINDINGS: The liver is enlarged. There is hepatic steatosis. No focal hepatic lesion is seen. As a 3 mm nonmobile echogenic structure along the gallbladder wall, likely a polyp or nonmobile gallstone. There is no cholecystitis. The common bile duct is normal in caliber. The right kidney is unremarkable. The pancreas is obscured due to bowel gas. The inferior vena cava is patent. IMPRESSION: 1. Hepatomegaly and hepatic steatosis. 2. 3 mm gallbladder polyp or nonmobile gallstone. Electronically signed by: Belgica Trimble MD (01/20/2020 3:51 PM) [facility]
[2020-01-20] MEDS ORDERED: DOCUSATE SODIUM 100 MG CAPSULE. PO PRN (16:00)
[2020-01-20] MEDS ORDERED: DEXTROSE 50% 25 GM / 50ML DISP.SYRIN. IV PRN ×2 (16:00)
[2020-01-20] MEDS ORDERED: oxyCODONE/APAP 5/325 1 TAB TABLET PO PRN ×2 (16:00)
[2020-01-20] MEDS ORDERED: ONDANSETRON PF 4 MG/2 ML VIAL. IVP PRN (16:00)
[2020-01-20] MEDS ORDERED: SENNOSIDES 8.6 MG TABLET PO PRN (16:00)
[2020-01-20] MEDS ORDERED: MORPHINE SULFATE 2 MG/ML VIAL. IV PRN (16:00)
--- NOTE | 2020-01-20 16:15 | PDOC1 ---
History and Physical Date of Service: DOS: DATE: 01/20/20 TIME: 16:06 Chief Complaint: Chief Complain: COVID-19 infection with body aches History of Present Illness: HPI: 54 year old female who presented to ER for evaluation of nausea vomiting, epigastric abdominal pain, cough, trouble breathing since last week. She was tested positive for COVID-19 infection on 01/17/2020. She has been staying home, her symptoms did get worse, having trouble breathing when she walks. Patient feels dehydrated because she had not been able to keep it in there. Patient has a history of diabetic and hypertension. Past Medical/Surgical History: PMH/PSH: Past Medical History: Diabetes-Type II, High Cholesterol, Hypertension, Insomnia Past Surgical History: Hysterectomy, Tonsillectomy, L knee, RIGHT SHOULDER, myomectomy Allergies: Allergies: Coded Allergies: No Known Drug Allergies (Unverified , 06/19/18) Family History: Family History: Reviewed and no relevant findings Social History: Social History: Smoking Status: Never Smoker Alcohol Use: None Drug Use: None Current Medications: Current Medications Current Medications Ondansetron HCl (Zofran) 8 mg 1X ONCE IVP Last administered on 01/20/20at 12:00; Start 01/20/20 at 12:00; Stop 01/20/20 at 12:01; Status DC Sodium Chloride 1,000 ml @ 1,000 mls/hr 1X ONCE IV Last administered on 01/20/20at 12:00; Start 01/20/20 at 12:00; Stop 01/20/20 at 12:59; Status DC Morphine Sulfate (Morphine Sulfate) 4 mg 1X ONCE IV Last administered on 01/20/20at 12:54; Start 01/20/20 at 13:00; Stop 01/20/20 at 13:01; Status DC Metoclopramide HCl (Reglan Vial) 10 mg 1X ONCE IVP Last administered on 01/20/20at 15:30; Start 01/20/20 at 15:00; Stop 01/20/20 at 15:01; Status DC Morphine Sulfate (Morphine Sulfate) 4 mg 1X ONCE IV Last administered on 01/20/20at 15:30; Start 01/20/20 at 15:00; Stop 01/20/20 at 15:01; Status DC Active Scripts Active Reported Multivitamins (Multivitamin) 1 Each Tablet 1 Tab PO DAILY Linzess (Linaclotide) 145 Mcg Capsule 145 Mcg PO DAILY07 Aldactone (Spironolactone) 25 Mg Tablet 1 Tab PO DAILY Diphenhydramine Hcl 50 Mg Capsule 1 Cap PO QHS PRN Folbic Rf Tablet (B12/Levomefolate Calcium/B-6) 1 Each Tablet 1 Each PO Amlodipine Besylate 5 Mg Tablet 5 Mg PO DAILY Ambien (Zolpidem Tartrate) 10 Mg Tablet 1 Tab PO QHS PRN Glimepiride 2 Mg Tablet 4 Mg PO BID Lipitor (Atorvastatin Calcium) 20 Mg Tablet 1 Tab PO DAILY Januvia (Sitagliptin Phosphate) 100 Mg Tablet 1 Tab PO DAILY ROS: Review of Systems Review of System REVIEW OF SYSTEMS: GENERAL: Denies weakness SKIN: No bruising, hair changes or rashes. EYES: No blurred, double or loss of vision. NOSE AND THROAT: No history of nosebleeds, hoarseness or sore throat. HEART: No history of palpitations, chest pain or shortness of breath on exertion. LUNGS: Denies cough, hemoptysis, wheezing or shortness of breath. GASTROINTESTINAL: Denies changes in appetite, nausea, vomiting, diarrhea or constipation. GENITOURINARY: No history of frequency, urgency, hesitancy or nocturia. NEUROLOGIC: Denies history of numbness, tingling, or tremor. PSYCHIATRIC: No history of panic, anxiety or depression. ENDOCRINE: No history of heat or cold intolerance, polyuria or polydipsia. EXTREMITIES: Denies joint pain, pain on walking or stiffness. Physical Exam: Vital Signs: Vital Signs Date Time Temp Pulse Resp B/P (MAP) Pulse Ox O2 Delivery O2 Flow Rate FiO2 01/20/20 15:30 20 Room Air 01/20/20 13:39 94 176/119 (138) 95 01/20/20 11:34 98.1 98.1 Physcial Exam: GEN: No apparent distress. Alert and oriented HEENT: Normal cephalic, atraumatic, external auditory canals are patent EYES: Extraocular muscles are intact, pupil are equally round and reactive to light and accommodation MUSCULOSKELETAL: Well developed , well nourished, good range of motion ENDOCRINE: No thyromegaly was palpated LYMPHATICS: No cervical chain or axillary nodes were noted HEMATOPOIETIC: No bruising NECK: Supple, no JVD, no thyromegaly was noted LUNGS: Clear to auscultation in all lung mcca[place]y without rhonchi or wheezing HEART: RRR, S!, S2 present. Peripheral pulses intact, no obvious murmurs noted ABDOMEN: Soft, nontender. Positive bowel sounds, no organomegaly, normal bowel sounds EXTREMITIES: Without clubbing, cyanosis, or edema. Pedal pulses intact. Negative Homans sign NEUROLOGIC: Normal speech and tone. A&O x 3, moves all extremities, no obvious focal deficits PSYCHIATRIC: Normal affect, normal mood. Stable SKIN: No ulcerations or rashes, good skin turgor, no jaundice VASCULAR: Good capillary refill, neurovascular bundle appears to be intact Labs: Labs: Laboratory Tests Test 01/20/20 11:50 White Blood Count 4.6 x10^3/uL (4.0-11.0) Red Blood Count 4.28 x10^6/uL (3.50-5.40) Hemoglobin 12.6 g/dL (12.0-15.5) Hematocrit 37.1 % (36.0-47.0) Mean Corpuscular Volume 87 fL (79-100) Mean Corpuscular Hemoglobin 29 pg (25-35) Mean Corpuscular Hemoglobin Concent 34 g/dL (31-37) Red Cell Distribution Width 14.0 % (11.5-14.5) Platelet Count 126 x10^3/uL (140-400) Neutrophils (%) (Auto) 77 % (31-73) Lymphocytes (%) (Auto) 15 % (24-48) Monocytes (%) (Auto) 7 % (0-9) Eosinophils (%) (Auto) 1 % (0-3) Basophils (%) (Auto) 1 % (0-3) Neutrophils # (Auto) 3.5 x10^3/uL (1.8-7.7) Lymphocytes # (Auto) 0.7 x10^3/uL (1.0-4.8) Monocytes # (Auto) 0.3 x10^3/uL (0.0-1.1) Eosinophils # (Auto) 0.0 x10^3/uL (0.0-0.7) Basophils # (Auto) 0.0 x10^3/uL (0.0-0.2) Sodium Level 138 mmol/L (136-145) Potassium Level 4.2 mmol/L (3.5-5.1) Chloride Level 102 mmol/L (98-107) Carbon Dioxide Level 24 mmol/L (21-32) Anion Gap 12 (6-14) Blood Urea Nitrogen 19 mg/dL (7-20) Creatinine 1.0 mg/dL (0.6-1.0) Estimated GFR (Cockcroft-Gault) 58.0 BUN/Creatinine Ratio 19 (6-20) Glucose Level 331 mg/dL (70-99) Calcium Level 9.0 mg/dL (8.5-10.1) Magnesium Level 1.9 mg/dL (1.8-2.4) Total Bilirubin 0.6 mg/dL (0.2-1.0) Aspartate Amino Transf (AST/SGOT) 23 U/L (15-37) Alanine Aminotransferase (ALT/SGPT) 36 U/L (14-59) Alkaline Phosphatase 136 U/L (46-116) Troponin I Quantitative < 0.017 ng/mL (0.000-0.055) YT-Rnc-A-Type Natriuretic Peptide 83 pg/mL (0-124) Total Protein 6.8 g/dL (6.4-8.2) Albumin 3.2 g/dL (3.4-5.0) Albumin/Globulin Ratio 0.9 (1.0-1.7) Lipase 88 U/L (73-393) Laboratory Tests Test 01/20/20 11:50 White Blood Count 4.6 x10^3/uL (4.0-11.0) Red Blood Count 4.28 x10^6/uL (3.50-5.40) Hemoglobin 12.6 g/dL (12.0-15.5) Hematocrit 37.1 % (36.0-47.0) Mean Corpuscular Volume 87 fL (79-100) Mean Corpuscular Hemoglobin 29 pg (25-35) Mean Corpuscular Hemoglobin Concent 34 g/dL (31-37) Red Cell Distribution Width 14.0 % (11.5-14.5) Platelet Count 126 x10^3/uL (140-400) Neutrophils (%) (Auto) 77 % (31-73) Lymphocytes (%) (Auto) 15 % (24-48) Monocytes (%) (Auto) 7 % (0-9) Eosinophils (%) (Auto) 1 % (0-3) Basophils (%) (Auto) 1 % (0-3) Neutrophils # (Auto) 3.5 x10^3/uL (1.8-7.7) Lymphocytes # (Auto) 0.7 x10^3/uL (1.0-4.8) Monocytes # (Auto) 0.3 x10^3/uL (0.0-1.1) Eosinophils # (Auto) 0.0 x10^3/uL (0.0-0.7) Basophils # (Auto) 0.0 x10^3/uL (0.0-0.2) Sodium Level 138 mmol/L (136-145) Potassium Level 4.2 mmol/L (3.5-5.1) Chloride Level 102 mmol/L (98-107) Carbon Dioxide Level 24 mmol/L (21-32) Anion Gap 12 (6-14) Blood Urea Nitrogen 19 mg/dL (7-20) Creatinine 1.0 mg/dL (0.6-1.0) Estimated GFR (Cockcroft-Gault) 58.0 BUN/Creatinine Ratio 19 (6-20) Glucose Level 331 mg/dL (70-99) Calcium Level 9.0 mg/dL (8.5-10.1) Magnesium Level 1.9 mg/dL (1.8-2.4) Total Bilirubin 0.6 mg/dL (0.2-1.0) Aspartate Amino Transf (AST/SGOT) 23 U/L (15-37) Alanine Aminotransferase (ALT/SGPT) 36 U/L (14-59) Alkaline Phosphatase 136 U/L (46-116) Troponin I Quantitative < 0.017 ng/mL (0.000-0.055) FS-Icq-F-Type Natriuretic Peptide 83 pg/mL (0-124) Total Protein 6.8 g/dL (6.4-8.2) Albumin 3.2 g/dL (3.4-5.0) Albumin/Globulin Ratio 0.9 (1.0-1.7) Lipase 88 U/L (73-393) Images: Images CXR IMPRESSION: * Patchy opacity left lung base could be from atelectasis or infiltrate. Assessment/Plan Assessment/Plan Acute generalized malaise due to COVID-19 infection Intractable nausea vomiting Thrombocytopenia Lymphopenia Morbid obesity Admit to medicine for further management Pending abdominal ultrasound Continue empiric IV antibiotics Pending ferritin, LDH, D-dimer Continue IV thiamine and p.o. vitamin C Lovenox for DVT prophylaxis ADA diet Full code Discussed with RN and SW Disposition inpatient management as above Surrogate decision maker is Serena Evans Justifications for Admission Other Justification + COVID INfection TRACEY PEREZ MD Jan 20, 2020 16:15
[2020-01-20] MEDS ORDERED: ZOLPIDEM 5 MG TABLET. PO PRN (16:30)
[2020-01-20] MEDS: AZITHROMYCIN 500 MG in IV NORMAL SALINE 250ML 250 ML IV SCH (17:00)
[2020-01-20] MEDS: IV NORMAL SALINE 1000ML BAG 1,000 ML IV SCH (17:00)
[2020-01-20] MEDS: cefTRIAXone IV Push 1 GM VIAL. IVP SCH (17:01)
[2020-01-20] MEDS: ENOXAPARIN 40 MG/0.4 ML SYRINGE. SQ SCH (17:01)
[2020-01-20] MEDS: LUBIPROSTONE 24 MCG CAPSULE PO SCH (17:01)
[2020-01-20] MEDS: INSULIN LISPRO 300 UNITS/3 ML VIAL. SQ SCH (18:03)
[2020-01-20 19:00] VITALS: BP 132/65
[2020-01-20] MEDS: ASCORBIC ACID 1,000 MG TABLET PO SCH (20:41)
[2020-01-20] MEDS: THIAMINE INJ 100 MG in IV DEXTROSE 5% 50 ML IV SCH (22:21)
[2020-01-20] MEDS: diphenhydrAMINE HCL 25 MG CAPSULE PO PRN (22:29)
[2020-01-20 23:00] VITALS: BP 139/66
[2020-01-21] MEDS: IV NORMAL SALINE 1000ML BAG 1,000 ML IV SCH (02:00)
[2020-01-21 03:00] VITALS: BP 133/88
[2020-01-21] MEDS: THIAMINE INJ 100 MG in IV DEXTROSE 5% 50 ML IV SCH ×3 (06:22→23:33)
[2020-01-21 07:05] VITALS: BP 134/71
[2020-01-21] MEDS: ACETAMINOPHEN 325 MG TABLET. PO PRN (08:41)
[2020-01-21] MEDS: LUBIPROSTONE 24 MCG CAPSULE PO SCH ×2 (08:41→16:04)
[2020-01-21] MEDS: amLODIPine BESYLATE 5 MG TABLET PO SCH (08:42)
[2020-01-21] MEDS: ASCORBIC ACID 1,000 MG TABLET PO SCH ×3 (08:43→21:10)
[2020-01-21] MEDS: ENOXAPARIN 40 MG/0.4 ML SYRINGE. SQ SCH ×2 (08:43→21:12)
[2020-01-21] MEDS: MULTIVITAMIN with MINERAL TABLET. PO SCH (08:43)
[2020-01-21] MEDS: ATORVASTATIN CALCIUM 20 MG TABLET PO SCH (08:48)
--- NOTE | 2020-01-21 08:48 | PDOC ---
[employer] PROGRESS NOTE Date of Service DOS: DATE: 01/21/20 TIME: 08:48 Chief Complaint Chief Complaint Respiratory failure COVID-19 Abnormal abdominal ultrasound with gallstone and hepatosteatosis and gallbladder polyp Acute generalized malaise due to COVID-19 infection Intractable nausea vomiting Thrombocytopenia Lymphopenia Overweight History of the following; Diabetes-Type II, High Cholesterol, Hypertension, Insomnia Hysterectomy, Tonsillectomy, L knee, RIGHT SHOULDER, myomectomy History of Present Illness History of Present Illness 01/21/2020 Patient seen and examined on the COVID-19 floor She is on oxygen per nasal cannula Appears quite weak Chart reviewed Discussed with RN at length Discussed with case management I went ahead and ordered pulmonary GI and infectious disease consults Also add in steroids and vitamins and spoke with the pharmacy Also added in Combivent metered-dose inhaler Vitals/I&O Vitals/I&O: Vital Signs Date Time Temp Pulse Resp B/P (MAP) Pulse Ox O2 Delivery O2 Flow Rate FiO2 01/21/20 06:34 22 Nasal Cannula 2.0 01/21/20 03:00 99.7 94 133/88 (103) 90 99.7 I & O 01/20/20 01/20/20 01/21/20 15:00 23:00 07:00 Intake Total 1000 ml 120 ml Balance 1000 ml 120 ml Physical Exam General: Alert, Oriented X3, mild distress Heart: Regular rate, No murmurs Lungs: Clear, Other (Slight crackles) Abdomen: Normal bowel sounds Extremities: No clubbing, No cyanosis Skin: No rashes Labs Labs: Laboratory Tests Test 01/20/20 11:50 01/20/20 17:56 01/20/20 19:47 01/20/20 20:55 White Blood Count 4.6 x10^3/uL (4.0-11.0) Red Blood Count 4.28 x10^6/uL (3.50-5.40) Hemoglobin 12.6 g/dL (12.0-15.5) Hematocrit 37.1 % (36.0-47.0) Mean Corpuscular Volume 87 fL (79-100) Mean Corpuscular Hemoglobin 29 pg (25-35) Mean Corpuscular Hemoglobin Concent 34 g/dL (31-37) Red Cell Distribution Width 14.0 % (11.5-14.5) Platelet Count 126 x10^3/uL (140-400) Neutrophils (%) (Auto) 77 % (31-73) Lymphocytes (%) (Auto) 15 % (24-48) Monocytes (%) (Auto) 7 % (0-9) Eosinophils (%) (Auto) 1 % (0-3) Basophils (%) (Auto) 1 % (0-3) Neutrophils # (Auto) 3.5 x10^3/uL (1.8-7.7) Lymphocytes # (Auto) 0.7 x10^3/uL (1.0-4.8) Monocytes # (Auto) 0.3 x10^3/uL (0.0-1.1) Eosinophils # (Auto) 0.0 x10^3/uL (0.0-0.7) Basophils # (Auto) 0.0 x10^3/uL (0.0-0.2) D-Dimer (Shira) 0.62 ug/mlFEU (0.00-0.50) Sodium Level 138 mmol/L (136-145) Potassium Level 4.2 mmol/L (3.5-5.1) Chloride Level 102 mmol/L (98-107) Carbon Dioxide Level 24 mmol/L (21-32) Anion Gap 12 (6-14) Blood Urea Nitrogen 19 mg/dL (7-20) Creatinine 1.0 mg/dL (0.6-1.0) Estimated GFR (Cockcroft-Gault) 58.0 BUN/Creatinine Ratio 19 (6-20) Glucose Level 331 mg/dL (70-99) Calcium Level 9.0 mg/dL (8.5-10.1) Magnesium Level 1.9 mg/dL (1.8-2.4) Ferritin 455 ng/mL (8-252) Total Bilirubin 0.6 mg/dL (0.2-1.0) Aspartate Amino Transf (AST/SGOT) 23 U/L (15-37) Alanine Aminotransferase (ALT/SGPT) 36 U/L (14-59) Alkaline Phosphatase 136 U/L (46-116) Lactate Dehydrogenase 264 U/L (81-234) Troponin I Quantitative < 0.017 ng/mL (0.000-0.055) < 0.017 ng/mL (0.000-0.055) C-Reactive Protein, Quantitative 27.0 mg/L (0-3.3) OF-Ker-K-Type Natriuretic Peptide 83 pg/mL (0-124) Total Protein 6.8 g/dL (6.4-8.2) Albumin 3.2 g/dL (3.4-5.0) Albumin/Globulin Ratio 0.9 (1.0-1.7) Lipase 88 U/L (73-393) Glucose (Fingerstick) 228 mg/dL (70-99) 222 mg/dL (70-99) Test 01/21/20 07:43 Glucose (Fingerstick) 305 mg/dL (70-99) Review of Systems Review of Systems: Complains of shortness of breath complains of cough Assessment and Plan Assessmemt and Plan Problems Medical Problems: (1) COVID-19 virus infection Status: Acute (2) Dehydration Status: Acute (3) Hyperglycemia Status: Acute (4) Nausea & vomiting Status: Acute Respiratory failure COVID-19 Abnormal abdominal ultrasound with gallstone and hepatosteatosis and gallbladder polyp Acute generalized malaise due to COVID-19 infection Intractable nausea vomiting Thrombocytopenia Lymphopenia Overweight History of the following; Diabetes-Type II, High Cholesterol, Hypertension, Insomnia Hysterectomy, Tonsillectomy, L knee, RIGHT SHOULDER, myomectomy Plan IV Rocephin IV azithromycin IV Solu-Medrol Multiple vitamin with minerals Combivent metered-dose inhaler O2 per nasal cannula Considering adding in remdesivir if okay with infectious disease Consult ID pulmonary and GI Home meds DVT prophylaxis Full code Trend labs Comment Review of Relevant I have reviewed the following items bora (where applicable) has been applied. Medications: Current Medications Medications (Trade) Dose Ordered Sig/Jasper Route PRN Reason Start Time Stop Time Status Last Admin Dose Admin Ondansetron HCl (Zofran) 8 mg 1X ONCE IVP 01/20/20 12:00 01/20/20 12:01 DC 01/20/20 12:00 Sodium Chloride 1,000 ml @ 1,000 mls/hr 1X ONCE IV 01/20/20 12:00 01/20/20 12:59 DC 01/20/20 12:00 Morphine Sulfate (Morphine Sulfate) 4 mg 1X ONCE IV 01/20/20 13:00 01/20/20 13:01 DC 01/20/20 12:54 Metoclopramide HCl (Reglan Vial) 10 mg 1X ONCE IVP 01/20/20 15:00 01/20/20 15:01 DC 01/20/20 15:30 Sodium Chloride 1,000 ml @ 100 mls/hr Q10H IV 01/20/20 16:00 01/20/20 17:00 Enoxaparin Sodium (Lovenox 40mg Syringe) 40 mg BID SQ 01/20/20 17:00 01/20/20 17:01 Morphine Sulfate (Morphine Sulfate) 1 mg PRN Q1HR PRN IV PAIN 01/20/20 16:00 01/21/20 06:34 Insulin Human Lispro (HumaLOG) 0-5 UNITS TIDWMEALS SQ 01/20/20 17:00 01/20/20 18:03 Ascorbic Acid (Vitamin C) 3,000 mg TID PO 01/20/20 21:00 01/20/20 20:41 Thiamine HCl 100 mg/Dextrose 51 ml @ 102 mls/hr Q8HRS IV 01/20/20 22:00 01/21/20 06:22 Ceftriaxone Sodium (Rocephin) 1 gm Q24H IVP 01/20/20 17:00 01/20/20 17:01 Azithromycin 500 mg/Sodium Chloride 250 ml @ 250 mls/hr Q24H IV 01/20/20 17:00 01/20/20 17:00 Diphenhydramine HCl (Benadryl) 50 mg PRN QHS PRN PO SLEEP 01/20/20 16:30 01/20/20 22:29 Lubiprostone (Amitiza) 24 mcg BIDWMEALS PO 01/20/20 17:00 01/20/20 17:01 Zolpidem Tartrate (Ambien) 5 mg PRN QHS PRN PO INSOMNIA 01/20/20 16:30 01/20/20 22:29 Justifications for Admission Other Justification + COVID INfection ARTI DELUCA III DO Jan 21, 2020 08:48
[2020-01-21] MEDS: INSULIN LISPRO 300 UNITS/3 ML VIAL. SQ SCH ×3 (08:56→17:13)
[2020-01-21] MEDS ORDERED: MULTIVITAMIN with MINERAL TABLET. PO SCH (09:00)
--- NOTE | 2020-01-21 09:58 | PDOC2 ---
GI CONSULT Date of Service: DATE: 01/21/20 TIME: 09:57 Reason For Consult: abnormal US HPI: HPI: 54 y/o female seen this morning w/ Dr. Hermosillo. Admitted w/ COVID-19 infection, worsening shortness of breath w/ inability to walk across her house at home. Also reports severe muscle aches, fever, and some n/v at home. Had abd US which noted hepatomegaly/hepatic steatosis and non-mobile gallstone or polyp and we are asked to see re: this. Looks like had a screening colonoscopy w/ Dr. Back in 2016 - cannot view procedure report. Iron profile and B12 normal 12/2019. Some elevation of Alk Phos noted now and in the past. Summary list includes Linzess. PMH: PMH: HTN, HLD, DM, peripheral neuropathy, insomnia partial hysterectomy, right rotator cuff repair, left knee arthroscopy, tonsillectomy, bilateral cataract removal/lens implant, myomectomy FH: Family History: Cancer (lung, colon (MGF)), DM, Hypertension, Other (colon polyps - mother, sibling, aunt, uncle; [place]) Social History: Smoke: No ALCOHOL: none Drugs: None ROS: GEN: +fever HEENT: Denies blurred vision, sore throat CV: Denies chest pain RESP: +SOA +cough GI: Per HPI : Denies hematuria, dysuria ENDO: Denies weight changes NEURO: Denies confusion, dizziness MSK: +bodyaches SKIN: Denies jaundice, pruritus Vitals: Vitals: Vital Signs Date Time Temp Pulse Resp B/P (MAP) Pulse Ox O2 Delivery O2 Flow Rate FiO2 01/21/20 08:42 92 134/71 01/21/20 07:05 100.3 25 93 Nasal Cannula 2.0 100.3 Labs: Labs: Laboratory Tests Test 01/20/20 11:50 01/20/20 17:56 01/20/20 19:47 01/20/20 20:55 White Blood Count 4.6 x10^3/uL (4.0-11.0) Red Blood Count 4.28 x10^6/uL (3.50-5.40) Hemoglobin 12.6 g/dL (12.0-15.5) Hematocrit 37.1 % (36.0-47.0) Mean Corpuscular Volume 87 fL (79-100) Mean Corpuscular Hemoglobin 29 pg (25-35) Mean Corpuscular Hemoglobin Concent 34 g/dL (31-37) Red Cell Distribution Width 14.0 % (11.5-14.5) Platelet Count 126 x10^3/uL (140-400) Neutrophils (%) (Auto) 77 % (31-73) Lymphocytes (%) (Auto) 15 % (24-48) Monocytes (%) (Auto) 7 % (0-9) Eosinophils (%) (Auto) 1 % (0-3) Basophils (%) (Auto) 1 % (0-3) Neutrophils # (Auto) 3.5 x10^3/uL (1.8-7.7) Lymphocytes # (Auto) 0.7 x10^3/uL (1.0-4.8) Monocytes # (Auto) 0.3 x10^3/uL (0.0-1.1) Eosinophils # (Auto) 0.0 x10^3/uL (0.0-0.7) Basophils # (Auto) 0.0 x10^3/uL (0.0-0.2) D-Dimer (Shira) 0.62 ug/mlFEU (0.00-0.50) Sodium Level 138 mmol/L (136-145) Potassium Level 4.2 mmol/L (3.5-5.1) Chloride Level 102 mmol/L (98-107) Carbon Dioxide Level 24 mmol/L (21-32) Anion Gap 12 (6-14) Blood Urea Nitrogen 19 mg/dL (7-20) Creatinine 1.0 mg/dL (0.6-1.0) Estimated GFR (Cockcroft-Gault) 58.0 BUN/Creatinine Ratio 19 (6-20) Glucose Level 331 mg/dL (70-99) Calcium Level 9.0 mg/dL (8.5-10.1) Magnesium Level 1.9 mg/dL (1.8-2.4) Ferritin 455 ng/mL (8-252) Total Bilirubin 0.6 mg/dL (0.2-1.0) Aspartate Amino Transf (AST/SGOT) 23 U/L (15-37) Alanine Aminotransferase (ALT/SGPT) 36 U/L (14-59) Alkaline Phosphatase 136 U/L (46-116) Lactate Dehydrogenase 264 U/L (81-234) Troponin I Quantitative < 0.017 ng/mL (0.000-0.055) < 0.017 ng/mL (0.000-0.055) C-Reactive Protein, Quantitative 27.0 mg/L (0-3.3) YR-Bib-U-Type Natriuretic Peptide 83 pg/mL (0-124) Total Protein 6.8 g/dL (6.4-8.2) Albumin 3.2 g/dL (3.4-5.0) Albumin/Globulin Ratio 0.9 (1.0-1.7) Lipase 88 U/L (73-393) Glucose (Fingerstick) 228 mg/dL (70-99) 222 mg/dL (70-99) Test 01/21/20 07:43 Glucose (Fingerstick) 305 mg/dL (70-99) Allergies: Coded Allergies: No Known Drug Allergies (Unverified , 06/19/18) Medications: Current Medications Medications (Trade) Dose Ordered Sig/Jasper Route PRN Reason Start Time Stop Time Status Last Admin Dose Admin Ondansetron HCl (Zofran) 8 mg 1X ONCE IVP 01/20/20 12:00 01/20/20 12:01 DC 01/20/20 12:00 Sodium Chloride 1,000 ml @ 1,000 mls/hr 1X ONCE IV 01/20/20 12:00 01/20/20 12:59 DC 01/20/20 12:00 Morphine Sulfate (Morphine Sulfate) 4 mg 1X ONCE IV 01/20/20 13:00 01/20/20 13:01 DC 01/20/20 12:54 Metoclopramide HCl (Reglan Vial) 10 mg 1X ONCE IVP 01/20/20 15:00 01/20/20 15:01 DC 01/20/20 15:30 Sodium Chloride 1,000 ml @ 100 mls/hr Q10H IV 01/20/20 16:00 01/20/20 17:00 Acetaminophen (Tylenol) 650 mg PRN Q4HRS PRN PO TEMP OVER 100.4F OR MILD PAIN 01/20/20 16:00 01/21/20 08:41 Enoxaparin Sodium (Lovenox 40mg Syringe) 40 mg BID SQ 01/20/20 17:00 01/21/20 08:43 Morphine Sulfate (Morphine Sulfate) 1 mg PRN Q1HR PRN IV PAIN 01/20/20 16:00 01/21/20 06:34 Insulin Human Lispro (HumaLOG) 0-5 UNITS TIDWMEALS SQ 01/20/20 17:00 01/21/20 08:56 Ascorbic Acid (Vitamin C) 3,000 mg TID PO 01/20/20 21:00 01/21/20 08:43 Thiamine HCl 100 mg/Dextrose 51 ml @ 102 mls/hr Q8HRS IV 01/20/20 22:00 01/21/20 06:22 Ceftriaxone Sodium (Rocephin) 1 gm Q24H IVP 01/20/20 17:00 01/20/20 17:01 Azithromycin 500 mg/Sodium Chloride 250 ml @ 250 mls/hr Q24H IV 01/20/20 17:00 01/20/20 17:00 Amlodipine Besylate (Norvasc) 5 mg DAILY PO 01/21/20 09:00 01/21/20 08:42 Atorvastatin Calcium (Lipitor) 20 mg DAILY PO 01/21/20 09:00 01/21/20 08:48 Diphenhydramine HCl (Benadryl) 50 mg PRN QHS PRN PO SLEEP 01/20/20 16:30 01/20/20 22:29 Lubiprostone (Amitiza) 24 mcg BIDWMEALS PO 01/20/20 17:00 01/21/20 08:41 Multivitamins (Thera M Plus) 1 tab DAILY PO 01/21/20 09:00 01/21/20 08:43 Zolpidem Tartrate (Ambien) 5 mg PRN QHS PRN PO INSOMNIA 01/20/20 16:30 01/20/20 22:29 Imaging: Imaging: CXR IMPRESSION: * Patchy opacity left lung base could be from atelectasis or infiltrate. Abd US IMPRESSION: 1. Hepatomegaly and hepatic steatosis. 2. 3 mm gallbladder polyp or nonmobile gallstone. PE: GEN: NAD HEENT: Atraumatic, PERRL LUNGS: clear anteriorly, coughing HEART: RRR ABD: NABS, S/ND/NT EXTREMITY: No edema SKIN: No rashes, no jaundice NEURO/PSYCH: A & O 3 A/P: A/P: COVID-19 infection Resp failure/pneumonia, myalgias, n/v Gallstone vs GB polyp Hepatomegaly, hepatic steatosis H/o constipation CRC screen, FH colon cancer and polyps - had colonoscopy w/ Dr. Back in 2015 DM - A1C 11.9 in 12/2019 -- Continue treatment for COVID per pulm and ID, supportive care per GI Consider surgery eval down the road re: GB findings on US if indicated. 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 ADAT. Linzess not available here - has Amitiza ordered for h/o constipation. RIK CARDOZA Jan 21, 2020 09:58
--- NOTE | 2020-01-21 10:48 | PDOC ---
PULMONARY PROGRESS NOTES DATE: 01/21/20 TIME: 10:48 Vitals Vital Signs Date Time Temp Pulse Resp B/P (MAP) Pulse Ox O2 Delivery O2 Flow Rate FiO2 01/21/20 08:42 92 134/71 01/21/20 07:05 100.3 25 93 Nasal Cannula 2.0 100.3 Lungs: Clear, Other (Slight crackles) Labs Laboratory Tests Test 01/20/20 11:50 01/20/20 17:56 01/20/20 19:47 01/20/20 20:55 White Blood Count 4.6 x10^3/uL (4.0-11.0) Red Blood Count 4.28 x10^6/uL (3.50-5.40) Hemoglobin 12.6 g/dL (12.0-15.5) Hematocrit 37.1 % (36.0-47.0) Mean Corpuscular Volume 87 fL (79-100) Mean Corpuscular Hemoglobin 29 pg (25-35) Mean Corpuscular Hemoglobin Concent 34 g/dL (31-37) Red Cell Distribution Width 14.0 % (11.5-14.5) Platelet Count 126 x10^3/uL (140-400) Neutrophils (%) (Auto) 77 % (31-73) Lymphocytes (%) (Auto) 15 % (24-48) Monocytes (%) (Auto) 7 % (0-9) Eosinophils (%) (Auto) 1 % (0-3) Basophils (%) (Auto) 1 % (0-3) Neutrophils # (Auto) 3.5 x10^3/uL (1.8-7.7) Lymphocytes # (Auto) 0.7 x10^3/uL (1.0-4.8) Monocytes # (Auto) 0.3 x10^3/uL (0.0-1.1) Eosinophils # (Auto) 0.0 x10^3/uL (0.0-0.7) Basophils # (Auto) 0.0 x10^3/uL (0.0-0.2) D-Dimer (Shira) 0.62 ug/mlFEU (0.00-0.50) Sodium Level 138 mmol/L (136-145) Potassium Level 4.2 mmol/L (3.5-5.1) Chloride Level 102 mmol/L (98-107) Carbon Dioxide Level 24 mmol/L (21-32) Anion Gap 12 (6-14) Blood Urea Nitrogen 19 mg/dL (7-20) Creatinine 1.0 mg/dL (0.6-1.0) Estimated GFR (Cockcroft-Gault) 58.0 BUN/Creatinine Ratio 19 (6-20) Glucose Level 331 mg/dL (70-99) Calcium Level 9.0 mg/dL (8.5-10.1) Magnesium Level 1.9 mg/dL (1.8-2.4) Ferritin 455 ng/mL (8-252) Total Bilirubin 0.6 mg/dL (0.2-1.0) Aspartate Amino Transf (AST/SGOT) 23 U/L (15-37) Alanine Aminotransferase (ALT/SGPT) 36 U/L (14-59) Alkaline Phosphatase 136 U/L (46-116) Lactate Dehydrogenase 264 U/L (81-234) Troponin I Quantitative < 0.017 ng/mL (0.000-0.055) < 0.017 ng/mL (0.000-0.055) C-Reactive Protein, Quantitative 27.0 mg/L (0-3.3) LS-Qeu-B-Type Natriuretic Peptide 83 pg/mL (0-124) Total Protein 6.8 g/dL (6.4-8.2) Albumin 3.2 g/dL (3.4-5.0) Albumin/Globulin Ratio 0.9 (1.0-1.7) Lipase 88 U/L (73-393) Glucose (Fingerstick) 228 mg/dL (70-99) 222 mg/dL (70-99) Test 01/21/20 07:43 Glucose (Fingerstick) 305 mg/dL (70-99) Laboratory Tests Test 01/20/20 11:50 01/20/20 17:56 01/20/20 19:47 01/20/20 20:55 White Blood Count 4.6 x10^3/uL (4.0-11.0) Red Blood Count 4.28 x10^6/uL (3.50-5.40) Hemoglobin 12.6 g/dL (12.0-15.5) Hematocrit 37.1 % (36.0-47.0) Mean Corpuscular Volume 87 fL (79-100) Mean Corpuscular Hemoglobin 29 pg (25-35) Mean Corpuscular Hemoglobin Concent 34 g/dL (31-37) Red Cell Distribution Width 14.0 % (11.5-14.5) Platelet Count 126 x10^3/uL (140-400) Neutrophils (%) (Auto) 77 % (31-73) Lymphocytes (%) (Auto) 15 % (24-48) Monocytes (%) (Auto) 7 % (0-9) Eosinophils (%) (Auto) 1 % (0-3) Basophils (%) (Auto) 1 % (0-3) Neutrophils # (Auto) 3.5 x10^3/uL (1.8-7.7) Lymphocytes # (Auto) 0.7 x10^3/uL (1.0-4.8) Monocytes # (Auto) 0.3 x10^3/uL (0.0-1.1) Eosinophils # (Auto) 0.0 x10^3/uL (0.0-0.7) Basophils # (Auto) 0.0 x10^3/uL (0.0-0.2) D-Dimer (Shira) 0.62 ug/mlFEU (0.00-0.50) Sodium Level 138 mmol/L (136-145) Potassium Level 4.2 mmol/L (3.5-5.1) Chloride Level 102 mmol/L (98-107) Carbon Dioxide Level 24 mmol/L (21-32) Anion Gap 12 (6-14) Blood Urea Nitrogen 19 mg/dL (7-20) Creatinine 1.0 mg/dL (0.6-1.0) Estimated GFR (Cockcroft-Gault) 58.0 BUN/Creatinine Ratio 19 (6-20) Glucose Level 331 mg/dL (70-99) Calcium Level 9.0 mg/dL (8.5-10.1) Magnesium Level 1.9 mg/dL (1.8-2.4) Ferritin 455 ng/mL (8-252) Total Bilirubin 0.6 mg/dL (0.2-1.0) Aspartate Amino Transf (AST/SGOT) 23 U/L (15-37) Alanine Aminotransferase (ALT/SGPT) 36 U/L (14-59) Alkaline Phosphatase 136 U/L (46-116) Lactate Dehydrogenase 264 U/L (81-234) Troponin I Quantitative < 0.017 ng/mL (0.000-0.055) < 0.017 ng/mL (0.000-0.055) C-Reactive Protein, Quantitative 27.0 mg/L (0-3.3) SX-Zlw-A-Type Natriuretic Peptide 83 pg/mL (0-124) Total Protein 6.8 g/dL (6.4-8.2) Albumin 3.2 g/dL (3.4-5.0) Albumin/Globulin Ratio 0.9 (1.0-1.7) Lipase 88 U/L (73-393) Glucose (Fingerstick) 228 mg/dL (70-99) 222 mg/dL (70-99) Test 01/21/20 07:43 Glucose (Fingerstick) 305 mg/dL (70-99) Medications Active Scripts Medications Dose Route/Sig Max Daily Dose Days Date Category Multivitamins (Multivitamin) 1 Each Tablet 1 Tab PO DAILY 04/13/18 Reported Linzess (Linaclotide) 145 Mcg Capsule 145 Mcg PO DAILY07 04/13/18 Reported Aldactone (Spironolactone) 25 Mg Tablet 1 Tab PO DAILY 04/13/18 Reported Diphenhydramine Hcl 50 Mg Capsule 1 Cap PO QHS PRN 04/13/18 Reported Folbic Rf Tablet (B12/Levomefolate Calcium/B-6) 1 Each Tablet 1 Each PO 12/03/17 Reported Amlodipine Besylate 5 Mg Tablet 5 Mg PO DAILY 12/03/17 Reported Ambien (Zolpidem Tartrate) 10 Mg Tablet 1 Tab PO QHS PRN 02/03/16 Reported Glimepiride 2 Mg Tablet 4 Mg PO BID 02/02/16 Reported Lipitor (Atorvastatin Calcium) 20 Mg Tablet 1 Tab PO DAILY 02/02/16 Reported Januvia (Sitagliptin Phosphate) 100 Mg Tablet 1 Tab PO DAILY 02/02/16 Reported Impression . Full note dictated COVID-19 viral pneumonia see orders YAMIL BAUER MD Jan 21, 2020 10:48
[2020-01-21] MEDS ORDERED: REMDESIVIR LOAD in IV NORMAL SALINE 250ML TV IV ONE (11:00)
[2020-01-21 11:05] VITALS: BP 136/64
[2020-01-21] MEDS: guaiFENesin DM 200MG/20MG 10 ML SYRUP PO PRN ×2 (11:14→21:10)
[2020-01-21] MEDS: methylPREDNISolone SOD SUCC PF 40 MG/ML VIAL. IV SCH ×2 (11:15→21:12)
--- NOTE | 2020-01-21 11:25 | CONS ---
DATE OF CONSULTATION: 01/21/2020 REFERRING PHYSICIAN: Dr. Adelso Alonso. REASON FOR CONSULTATION: COVID-19 infection. HISTORY OF PRESENT ILLNESS: The patient is a 54-year-old female with history of diabetes, hypertension, hyperlipidemia, insomnia, presented to the ER with complaints of fever, trouble breathing, nausea, vomiting, abdominal discomfort, cough, headache, which started last Sunday. She was diagnosed with COVID-19 on 01/17/2020. She was trying to take care of herself by symptomatic care, but started having worsening shortness of breath. She was unable to keep anything down and was feeling dehydrated. Upon presentation to the ER, her temperature was 98. White count was 4.6. Creatinine was 1.0. Chest x-ray showed patchy opacity in left lung base, which could be atelectasis or infiltrate. Ultrasound of the abdomen showed hepatomegaly and hepatic steatosis, a 3 mm gallbladder polyp or nonmobile gallstone. The patient was started on azithromycin, was also started on remdesivir earlier this morning, ceftriaxone and steroids. ID consultation has been requested for further evaluation and treatment. Today, the patient continues to have low-grade fever. Has cough, headache has resolved. Continues to have nausea. No vomiting, no abdominal discomfort. Still has generalized aches and pains. PAST MEDICAL HISTORY: Diabetes, hypertension, hyperlipidemia, insomnia. PAST SURGICAL HISTORY: Hysterectomy, tonsillectomy, left knee, right shoulder, myomectomy. ALLERGIES: No known drug allergies. SOCIAL HISTORY: Never smoked, no alcohol, no drugs. Daughter has been diagnosed with COVID positive. FAMILY HISTORY: Noncontributory. CURRENT MEDICATIONS: Ceftriaxone, azithromycin, steroids and remdesivir. Other medications reviewed in medication list. REVIEW OF SYSTEMS: Negative except for above in HPI. PHYSICAL EXAMINATION: VITAL SIGNS: Temperature 100.3, pulse 92, respiratory rate 25, blood pressure 134/71, oxygen saturation 93% on 2 liters by nasal cannula. GENERAL: Alert and oriented x 3. Tired appearing female, sitting upright in chair, in no acute distress. HEENT: Normocephalic, atraumatic, anicteric. Oral mucosa moist. NECK: Supple. LUNGS: Decreased breath sounds at the bases. No wheezing. HEART: S1, S2. No gallops or murmurs. ABDOMEN: Soft, obese. Bowel sounds present, nontender, nondistended. EXTREMITIES: No edema, no cyanosis. DERMATOLOGIC: Warm, dry. No generalized rash. NEUROLOGIC: Alert and oriented x 3, grossly nonfocal. PSYCHIATRIC: Cooperative, appropriate mood and affect. LABORATORY DATA: WBC 4.6, hemoglobin 12.6, hematocrit 37.1, platelets 126. Sodium 138, potassium 4.2, chloride 102, bicarbonate 24, BUN 19, creatinine 1.0, glucose 331, alkaline phosphatase 136, LDH 264. Ferritin 455. C-reactive protein 27. Troponin normal. IMAGING: Chest x-ray as above. Ultrasound abdomen as above. IMPRESSION: 1. COVID-19 infection. 2. Febrile illness POA from above. 3. Nausea and vomiting. 4. Generalized myalgia. 5. Acute hypoxic respiratory failure. 6. Diabetes. 7. Lymphopenia. 8. Mild thrombocytopenia. RECOMMENDATIONS: 1. Continue supportive treatment. 2. Continue remdesivir 01/20. 3. Continue steroids per Pulmonary. 4. Continue ceftriaxone and azithromycin. 5. Follow up labs and cultures. 6. Continue supportive care. Discussed with RN Thank you for allowing me to participate in this patient's care. If you have any questions, do not hesitate to contact me. HUMZA DIAZ MD DR: DAYANNA/gallo JOB#: [id number] / [id number] PETEY
[2020-01-21] MEDS: IPRATROPIUM/ALBUTEROL 20/100mcg/INH INHALER. INH SCH ×3 (11:29→20:00)
--- NOTE | 2020-01-21 11:51 | CONS ---
DATE OF CONSULTATION: 01/21/2020 ATTENDING PHYSICIAN: Adelso Alonso MD REASON FOR CONSULTATION: The patient is seen in pulmonary consultation at the request of Dr. Alonso for increasing shortness of air, hypoxemia. 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 She had some symptoms prior to 01/17/2020. She tested positive on the . She was doing well up until yesterday. She started to experience increasing abdominal discomfort, nausea, cough, and difficulty breathing. She presented, she was admitted. She had a chest x-ray. There was a left sided infiltrate. She is currently receiving antibiotics for bacterial pneumonia. I was asked to see her in consultation. The patient has never smoked. She normally does not wear oxygen at home. Since admission, she has been febrile. She has had labs which revealed normal white count with a lymphopenia. Electrolytes were noted to be normal. Blood sugar was elevated. Coags: D-dimer was elevated. PAST MEDICAL HISTORY: Type 2 diabetes, hyperlipidemia, hypertension, insomnia, hysterectomy, tonsillectomy, left knee surgery. She has had previous right shoulder surgery. ALLERGIES: No known drug allergies. 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 FAMILY HISTORY: Noncontributory. REVIEW OF SYSTEMS: As indicated above, otherwise, a 10-point system was reviewed and negative. PHYSICAL EXAMINATION: GENERAL: The patient was seen during the COVID-19 pandemic. VISUAL EXAMINATION: No respiratory distress. No paroxysmal breathing pattern. LUNG: It was relatively clear. No wheezing. EXTREMITIES: No edema. RADIOLOGICAL DATA: Labs as indicated above. Chest x-ray as indicated above. IMPRESSION: 1. Acute hypoxemic respiratory failure secondary to COVID-19 viral pneumonia. 2. COVID-19 viral pneumonia. 3. Nausea and vomiting. 4. Lymphopenia. 5. Thrombocytopenia. 6. Obesity. PLAN: 1. Continue empiric antibiotics for bacterial pneumonia. 2. Add remdesivir. 3. Continue Steroids. 4. DVT prophylaxis. 5. We will defer nausea and vomiting to PCP. I do appreciate the privilege in sharing in the patient's care. YAMIL BAUER MD DR: VANDA/gallo JOB#: [id number] / [id number]
[2020-01-21] MEDS: FAMOTIDINE 20 MG/2 ML VIAL IVP SCH ×2 (11:53→21:11)
[2020-01-21] MEDS: BENZONATATE 100 MG CAPSULE. PO SCH ×2 (14:14→21:11)
[2020-01-21 14:58] LABS: BASO % 0 % (0-3); EOS % 0 % (0-3); HEMATOCRIT 32.4 % (36.0-47.0); HEMOGLOBIN 10.8 g/dL (12.0-15.5); LYMPH # 0.4 x10^3/uL (1.0-4.8); LYMPH % 11 % (24-48); MEAN CORPUSCULAR HEMOGLOBIN 29 pg (25-35); MEAN CORPUSCULAR HGB CONC 33 g/dL (31-37); MEAN CORPUSCULAR VOLUME 88 fL (79-100); MONO # 0.1 x10^3/uL (0.0-1.1); MONO % 4 % (0-9); NEUT # 3.2 x10^3/uL (1.8-7.7); NEUT % 85 % (31-73); PLATELET COUNT 100 x10^3/uL (140-400); RED CELL DISTRIBUTION WIDTH 14.2 % (11.5-14.5); WHITE BLOOD COUNT 3.8 x10^3/uL (4.0-11.0)
[2020-01-21 15:05] VITALS: BP 150/75
[2020-01-21 15:14] LABS: CALCIUM 7.9 mg/dL (8.5-10.1); MAGNESIUM 1.9 mg/dL (1.8-2.4); PHOSPHORUS 2.6 mg/dL (2.6-4.7)
[2020-01-21 15:39] LABS: % BANDS 10 % (0-9); % LYMPHS 14 % (24-48); % MONOS 3 % (0-10); % SEGS 73 % (35-66)
[2020-01-21 15:40] LABS: PLT ESTIMATE DECREASED (ADEQUATE)
[2020-01-21 15:41] LABS: POLYCHROMASIA SLIGHT; TOXIC GRANULATION SLIGHT
[2020-01-21] MEDS: AZITHROMYCIN 500 MG in IV NORMAL SALINE 250ML 250 ML IV SCH (16:04)
[2020-01-21] MEDS: cefTRIAXone IV Push 1 GM VIAL. IVP SCH (16:04)
--- NOTE | 2020-01-21 17:17 | NUR ---
SW following for discharge planning. Spoke with RN and reviewed chart. Pt from home. Pt COVID positive and started on Remdesivir. Pt on 2l 02 with consults to pulmonary, GI, and ID. Pt does not have home 02. SW following.
[2020-01-21 19:58] VITALS: BP 163/76
[2020-01-21] MEDS: diphenhydrAMINE HCL 25 MG CAPSULE PO PRN (21:10)
[2020-01-21] MEDS: ZOLPIDEM 5 MG TABLET. PO PRN (21:11)
[2020-01-21] MEDS: LACTOBACILLUS RHAMNOSUS GG 1 CAPSULE. PO SCH (21:11)
[2020-01-21 23:26] VITALS: BP 164/81
[2020-01-22 03:55] VITALS: BP 141/74
[2020-01-22] MEDS: THIAMINE INJ 100 MG in IV DEXTROSE 5% 50 ML IV SCH ×2 (06:35→13:45)
[2020-01-22] MEDS: guaiFENesin DM 200MG/20MG 10 ML SYRUP PO PRN ×3 (06:48→22:16)
[2020-01-22 07:00] VITALS: BP 143/70
[2020-01-22 07:30] LABS: BASO % 0 % (0-3); EOS % 0 % (0-3); HEMATOCRIT 34.2 % (36.0-47.0); HEMOGLOBIN 11.7 g/dL (12.0-15.5); LYMPH # 0.4 x10^3/uL (1.0-4.8); LYMPH % 18 % (24-48); MEAN CORPUSCULAR HEMOGLOBIN 29 pg (25-35); MEAN CORPUSCULAR HGB CONC 34 g/dL (31-37); MEAN CORPUSCULAR VOLUME 86 fL (79-100); MONO # 0.1 x10^3/uL (0.0-1.1); MONO % 5 % (0-9); NEUT # 1.8 x10^3/uL (1.8-7.7); NEUT % 76 % (31-73); PLATELET COUNT 101 x10^3/uL (140-400); RED BLOOD COUNT 3.97 x10^6/uL (3.50-5.40); RED CELL DISTRIBUTION WIDTH 13.9 % (11.5-14.5); WHITE BLOOD COUNT 2.4 x10^3/uL (4.0-11.0)
[2020-01-22 07:45] LABS: CREATININE 0.9 mg/dL (0.6-1.0); GFR 65.2; POTASSIUM 4.2 mmol/L (3.5-5.1)
--- NOTE | 2020-01-22 07:49 | PDOC ---
Infectious Disease Note Subjective: Subjective Patient feels much better today Remains on 2 L O2 by nasal cannula Denies nausea, vomiting, diarrhea, abdominal pain Vital Signs: Vital Signs Vital Signs Date Time Temp Pulse Resp B/P (MAP) Pulse Ox O2 Delivery O2 Flow Rate FiO2 01/22/20 03:55 97.9 83 16 141/74 (96) 94 Nasal Cannula 2.0 97.9 Physical Exam: PHYSICAL EXAM GENERAL: Alert and oriented x 3. Tired appearing female in no acute distress. HEENT: Normocephalic, atraumatic, anicteric. Oral mucosa moist. NECK: Supple. LUNGS: Decreased breath sounds at the bases. No wheezing. HEART: S1, S2. No gallops or murmurs. ABDOMEN: Soft, obese. Bowel sounds present, nontender, nondistended. EXTREMITIES: No edema, no cyanosis. DERMATOLOGIC: Warm, dry. No generalized rash. NEUROLOGIC: Alert and oriented x 3, grossly nonfocal. PSYCHIATRIC: Cooperative, appropriate mood and affect. Medications: Inpatient Meds: Current Medications Medications (Trade) Dose Ordered Sig/Jasper Start Time Stop Time Status Last Admin Dose Admin Acetaminophen (Tylenol) 650 mg PRN Q4HRS PRN 01/20/20 16:00 01/21/20 08:41 650 MG Albuterol/ Ipratropium (Combivent Respimat 20-100 Mcg) 1 puff RTQID 01/21/20 12:00 01/21/20 20:00 1 PUFF Amlodipine Besylate (Norvasc) 5 mg DAILY 01/21/20 09:00 01/21/20 08:42 5 MG Ascorbic Acid (Vitamin C) 3,000 mg TID 01/20/20 21:00 01/21/20 21:10 3,000 MG Atorvastatin Calcium (Lipitor) 20 mg DAILY 01/21/20 09:00 01/21/20 08:48 20 MG Azithromycin 500 mg/Sodium Chloride 250 ml @ 250 mls/hr Q24H 01/20/20 17:00 01/21/20 16:04 250 MLS/HR Benzonatate (Tessalon Perle) 100 mg [id number] 01/21/20 14:00 01/21/20 21:11 100 MG Ceftriaxone Sodium (Rocephin) 1 gm Q24H 01/20/20 17:00 01/21/20 16:04 1 GM Dextrose (Dextrose 50%-Water Syringe) 12.5 gm PRN Q15MIN PRN 01/20/20 16:00 Diphenhydramine HCl (Benadryl) 50 mg PRN QHS PRN 01/20/20 16:30 01/21/20 21:10 50 MG Docusate Sodium (Colace) 100 mg PRN DAILY PRN 01/20/20 16:00 Enoxaparin Sodium (Lovenox 40mg Syringe) 40 mg BID 01/20/20 17:00 01/21/20 21:12 40 MG Famotidine (Pepcid Vial) 20 mg BID 01/21/20 12:00 01/21/20 21:11 20 MG Guaifenesin (Robitussin Dm) 10 ml PRN Q6HRS PRN 01/21/20 11:00 01/22/20 06:48 10 ML Insulin Human Lispro (HumaLOG) 0-5 UNITS TIDWMEALS 01/20/20 17:00 01/21/20 17:13 30 UNITS Lactobacillus Rhamnosus (Culturelle) 1 cap BID 01/21/20 21:00 01/21/20 21:11 1 CAP Lubiprostone (Amitiza) 24 mcg BIDWMEALS 01/20/20 17:00 01/21/20 16:04 24 MCG Methylprednisolone Sodium Succinate (SOLU-Medrol 40MG VIAL) 40 mg BID 01/21/20 09:00 01/21/20 21:12 40 MG Metoclopramide HCl (Reglan Vial) 10 mg 1X ONCE 01/20/20 15:00 01/20/20 15:01 DC 01/20/20 15:30 10 MG Morphine Sulfate (Morphine Sulfate) 2 mg PRN Q2HR PRN 01/20/20 04:00 01/21/20 03:59 DC Multivitamins (Thera M Plus) 1 tab DAILY 01/21/20 09:00 UNV Ondansetron HCl (Zofran) 4 mg PRN Q6HRS PRN 01/20/20 16:00 Oxycodone/ Acetaminophen (Percocet 5/325) 2 tab PRN Q4HRS PRN 01/20/20 16:00 Remdesivir 100 mg/ Sodium Chloride 230 ml @ 460 mls/hr Q24H 01/22/20 11:00 01/25/20 11:29 Remdesivir 200 mg/ Sodium Chloride 210 ml @ 210 mls/hr 1X ONCE 01/21/20 11:00 01/21/20 11:59 DC 01/21/20 11:15 210 MLS/HR Sennosides (Senna) 17.2 mg PRN BID PRN 01/20/20 16:00 Sodium Chloride 1,000 ml @ 100 mls/hr Q10H 01/20/20 16:00 01/21/20 11:54 DC 01/20/20 17:00 100 MLS/HR Thiamine HCl 100 mg/Dextrose 51 ml @ 102 mls/hr Q8HRS 01/20/20 22:00 01/22/20 06:35 102 MLS/HR Zolpidem Tartrate (Ambien) 10 mg PRN QHS PRN 01/21/20 21:00 01/21/20 21:11 10 MG Labs: Lab Laboratory Tests Test 01/21/20 11:10 01/21/20 14:00 01/21/20 16:47 01/21/20 21:10 Glucose (Fingerstick) 338 mg/dL (70-99) 471 mg/dL (70-99) 376 mg/dL (70-99) White Blood Count 3.8 x10^3/uL (4.0-11.0) Red Blood Count 3.70 x10^6/uL (3.50-5.40) Hemoglobin 10.8 g/dL (12.0-15.5) Hematocrit 32.4 % (36.0-47.0) Mean Corpuscular Volume 88 fL (79-100) Mean Corpuscular Hemoglobin 29 pg (25-35) Mean Corpuscular Hemoglobin Concent 33 g/dL (31-37) Red Cell Distribution Width 14.2 % (11.5-14.5) Platelet Count 100 x10^3/uL (140-400) Neutrophils (%) (Auto) 85 % (31-73) Lymphocytes (%) (Auto) 11 % (24-48) Monocytes (%) (Auto) 4 % (0-9) Eosinophils (%) (Auto) 0 % (0-3) Basophils (%) (Auto) 0 % (0-3) Neutrophils # (Auto) 3.2 x10^3/uL (1.8-7.7) Lymphocytes # (Auto) 0.4 x10^3/uL (1.0-4.8) Monocytes # (Auto) 0.1 x10^3/uL (0.0-1.1) Eosinophils # (Auto) 0.0 x10^3/uL (0.0-0.7) Basophils # (Auto) 0.0 x10^3/uL (0.0-0.2) Segmented Neutrophils % 73 % (35-66) Band Neutrophils % 10 % (0-9) Lymphocytes % 14 % (24-48) Monocytes % 3 % (0-10) Toxic Granulation Slight Platelet Estimate Decreased (ADEQUATE) Polychromasia Slight Sodium Level 133 mmol/L (136-145) Potassium Level 4.0 mmol/L (3.5-5.1) Chloride Level 100 mmol/L (98-107) Carbon Dioxide Level 24 mmol/L (21-32) Anion Gap 9 (6-14) Blood Urea Nitrogen 17 mg/dL (7-20) Creatinine 1.0 mg/dL (0.6-1.0) Estimated GFR (Cockcroft-Gault) 58.0 Glucose Level 416 mg/dL (70-99) Calcium Level 7.9 mg/dL (8.5-10.1) Phosphorus Level 2.6 mg/dL (2.6-4.7) Magnesium Level 1.9 mg/dL (1.8-2.4) Test 01/22/20 07:00 White Blood Count 2.4 x10^3/uL (4.0-11.0) Red Blood Count 3.97 x10^6/uL (3.50-5.40) Hemoglobin 11.7 g/dL (12.0-15.5) Hematocrit 34.2 % (36.0-47.0) Mean Corpuscular Volume 86 fL (79-100) Mean Corpuscular Hemoglobin 29 pg (25-35) Mean Corpuscular Hemoglobin Concent 34 g/dL (31-37) Red Cell Distribution Width 13.9 % (11.5-14.5) Platelet Count 101 x10^3/uL (140-400) Neutrophils (%) (Auto) 76 % (31-73) Lymphocytes (%) (Auto) 18 % (24-48) Monocytes (%) (Auto) 5 % (0-9) Eosinophils (%) (Auto) 0 % (0-3) Basophils (%) (Auto) 0 % (0-3) Neutrophils # (Auto) 1.8 x10^3/uL (1.8-7.7) Lymphocytes # (Auto) 0.4 x10^3/uL (1.0-4.8) Monocytes # (Auto) 0.1 x10^3/uL (0.0-1.1) Eosinophils # (Auto) 0.0 x10^3/uL (0.0-0.7) Basophils # (Auto) 0.0 x10^3/uL (0.0-0.2) Objective: Assessment: 1. COVID-19 infection. 2. Febrile illness POA from above. 3. . Acute hypoxic respiratory failure. 4. Generalized myalgia. 5. Nausea and vomiting, improving 6. Diabetes. 7. Lymphopenia. 8. Thrombocytopenia 9. Hyponatremia Plan: Plan of Care 1. Continue supportive treatment. 2. Continue remdesivir 01/20. 3. Continue steroids per Pulmonary. 4. Continue ceftriaxone and azithromycin. 5. Follow up labs and cultures. 6. Continue supportive care. Discussed with HUMZA BELTRAN MD Jan 22, 2020 07:49
[2020-01-22 07:52] LABS: CALCIUM 8.5 mg/dL (8.5-10.1)
[2020-01-22] MEDS: LUBIPROSTONE 24 MCG CAPSULE PO SCH (08:00)
[2020-01-22 08:29] LABS: DIRECT BILIRUBIN 0.2 mg/dL (0.0-0.2); TOTAL BILIRUBIN 0.4 mg/dL (0.2-1.0); TOTAL PROTEIN 6.1 g/dL (6.4-8.2)
--- NOTE | 2020-01-22 08:44 | PDOC ---
PULMONARY PROGRESS NOTES DATE: 01/22/20 TIME: 08:44 Subjective Patient feels much better, not more short of air no headaches diplopia or blurred vision Vitals Vital Signs Date Time Temp Pulse Resp B/P (MAP) Pulse Ox O2 Delivery O2 Flow Rate FiO2 01/22/20 03:55 97.9 83 16 141/74 (96) 94 Nasal Cannula 2.0 97.9 Comments Patient seen doing the ID pandemic, visual inspection no respiratory distress no paroxysmal breathing pattern no increasing edema no skin rash Labs Laboratory Tests Test 01/20/20 11:50 01/20/20 17:56 01/20/20 19:47 01/20/20 20:55 White Blood Count 4.6 x10^3/uL (4.0-11.0) Red Blood Count 4.28 x10^6/uL (3.50-5.40) Hemoglobin 12.6 g/dL (12.0-15.5) Hematocrit 37.1 % (36.0-47.0) Mean Corpuscular Volume 87 fL (79-100) Mean Corpuscular Hemoglobin 29 pg (25-35) Mean Corpuscular Hemoglobin Concent 34 g/dL (31-37) Red Cell Distribution Width 14.0 % (11.5-14.5) Platelet Count 126 x10^3/uL (140-400) Neutrophils (%) (Auto) 77 % (31-73) Lymphocytes (%) (Auto) 15 % (24-48) Monocytes (%) (Auto) 7 % (0-9) Eosinophils (%) (Auto) 1 % (0-3) Basophils (%) (Auto) 1 % (0-3) Neutrophils # (Auto) 3.5 x10^3/uL (1.8-7.7) Lymphocytes # (Auto) 0.7 x10^3/uL (1.0-4.8) Monocytes # (Auto) 0.3 x10^3/uL (0.0-1.1) Eosinophils # (Auto) 0.0 x10^3/uL (0.0-0.7) Basophils # (Auto) 0.0 x10^3/uL (0.0-0.2) D-Dimer (Shira) 0.62 ug/mlFEU (0.00-0.50) Sodium Level 138 mmol/L (136-145) Potassium Level 4.2 mmol/L (3.5-5.1) Chloride Level 102 mmol/L (98-107) Carbon Dioxide Level 24 mmol/L (21-32) Anion Gap 12 (6-14) Blood Urea Nitrogen 19 mg/dL (7-20) Creatinine 1.0 mg/dL (0.6-1.0) Estimated GFR (Cockcroft-Gault) 58.0 BUN/Creatinine Ratio 19 (6-20) Glucose Level 331 mg/dL (70-99) Calcium Level 9.0 mg/dL (8.5-10.1) Magnesium Level 1.9 mg/dL (1.8-2.4) Ferritin 455 ng/mL (8-252) Total Bilirubin 0.6 mg/dL (0.2-1.0) Aspartate Amino Transf (AST/SGOT) 23 U/L (15-37) Alanine Aminotransferase (ALT/SGPT) 36 U/L (14-59) Alkaline Phosphatase 136 U/L (46-116) Lactate Dehydrogenase 264 U/L (81-234) Troponin I Quantitative < 0.017 ng/mL (0.000-0.055) < 0.017 ng/mL (0.000-0.055) C-Reactive Protein, Quantitative 27.0 mg/L (0-3.3) NR-[id number]-Type Natriuretic Peptide 83 pg/mL (0-124) Total Protein 6.8 g/dL (6.4-8.2) Albumin 3.2 g/dL (3.4-5.0) Albumin/Globulin Ratio 0.9 (1.0-1.7) Lipase 88 U/L (73-393) Glucose (Fingerstick) 228 mg/dL (70-99) 222 mg/dL (70-99) Test 01/21/20 07:43 01/21/20 11:10 01/21/20 14:00 01/21/20 16:47 Glucose (Fingerstick) 305 mg/dL (70-99) 338 mg/dL (70-99) 471 mg/dL (70-99) White Blood Count 3.8 x10^3/uL (4.0-11.0) Red Blood Count 3.70 x10^6/uL (3.50-5.40) Hemoglobin 10.8 g/dL (12.0-15.5) Hematocrit 32.4 % (36.0-47.0) Mean Corpuscular Volume 88 fL (79-100) Mean Corpuscular Hemoglobin 29 pg (25-35) Mean Corpuscular Hemoglobin Concent 33 g/dL (31-37) Red Cell Distribution Width 14.2 % (11.5-14.5) Platelet Count 100 x10^3/uL (140-400) Neutrophils (%) (Auto) 85 % (31-73) Lymphocytes (%) (Auto) 11 % (24-48) Monocytes (%) (Auto) 4 % (0-9) Eosinophils (%) (Auto) 0 % (0-3) Basophils (%) (Auto) 0 % (0-3) Neutrophils # (Auto) 3.2 x10^3/uL (1.8-7.7) Lymphocytes # (Auto) 0.4 x10^3/uL (1.0-4.8) Monocytes # (Auto) 0.1 x10^3/uL (0.0-1.1) Eosinophils # (Auto) 0.0 x10^3/uL (0.0-0.7) Basophils # (Auto) 0.0 x10^3/uL (0.0-0.2) Segmented Neutrophils % 73 % (35-66) Band Neutrophils % 10 % (0-9) Lymphocytes % 14 % (24-48) Monocytes % 3 % (0-10) Toxic Granulation Slight Platelet Estimate Decreased (ADEQUATE) Polychromasia Slight Sodium Level 133 mmol/L (136-145) Potassium Level 4.0 mmol/L (3.5-5.1) Chloride Level 100 mmol/L (98-107) Carbon Dioxide Level 24 mmol/L (21-32) Anion Gap 9 (6-14) Blood Urea Nitrogen 17 mg/dL (7-20) Creatinine 1.0 mg/dL (0.6-1.0) Estimated GFR (Cockcroft-Gault) 58.0 Glucose Level 416 mg/dL (70-99) Calcium Level 7.9 mg/dL (8.5-10.1) Phosphorus Level 2.6 mg/dL (2.6-4.7) Magnesium Level 1.9 mg/dL (1.8-2.4) Test 01/21/20 21:10 01/22/20 07:00 01/22/20 07:57 Glucose (Fingerstick) 376 mg/dL (70-99) 405 mg/dL (70-99) White Blood Count 2.4 x10^3/uL (4.0-11.0) Red Blood Count 3.97 x10^6/uL (3.50-5.40) Hemoglobin 11.7 g/dL (12.0-15.5) Hematocrit 34.2 % (36.0-47.0) Mean Corpuscular Volume 86 fL (79-100) Mean Corpuscular Hemoglobin 29 pg (25-35) Mean Corpuscular Hemoglobin Concent 34 g/dL (31-37) Red Cell Distribution Width 13.9 % (11.5-14.5) Platelet Count 101 x10^3/uL (140-400) Neutrophils (%) (Auto) 76 % (31-73) Lymphocytes (%) (Auto) 18 % (24-48) Monocytes (%) (Auto) 5 % (0-9) Eosinophils (%) (Auto) 0 % (0-3) Basophils (%) (Auto) 0 % (0-3) Neutrophils # (Auto) 1.8 x10^3/uL (1.8-7.7) Lymphocytes # (Auto) 0.4 x10^3/uL (1.0-4.8) Monocytes # (Auto) 0.1 x10^3/uL (0.0-1.1) Eosinophils # (Auto) 0.0 x10^3/uL (0.0-0.7) Basophils # (Auto) 0.0 x10^3/uL (0.0-0.2) Sodium Level 136 mmol/L (136-145) Potassium Level 4.2 mmol/L (3.5-5.1) Chloride Level 102 mmol/L (98-107) Carbon Dioxide Level 23 mmol/L (21-32) Anion Gap 11 (6-14) Blood Urea Nitrogen 18 mg/dL (7-20) Creatinine 0.9 mg/dL (0.6-1.0) Estimated GFR (Cockcroft-Gault) 65.2 Glucose Level 321 mg/dL (70-99) Calcium Level 8.5 mg/dL (8.5-10.1) Total Bilirubin 0.4 mg/dL (0.2-1.0) Direct Bilirubin 0.2 mg/dL (0.0-0.2) Aspartate Amino Transf (AST/SGOT) 54 U/L (15-37) Alanine Aminotransferase (ALT/SGPT) 60 U/L (14-59) Alkaline Phosphatase 170 U/L (46-116) Total Protein 6.1 g/dL (6.4-8.2) Albumin 3.0 g/dL (3.4-5.0) Laboratory Tests Test 01/21/20 11:10 01/21/20 14:00 01/21/20 16:47 01/21/20 21:10 Glucose (Fingerstick) 338 mg/dL (70-99) 471 mg/dL (70-99) 376 mg/dL (70-99) White Blood Count 3.8 x10^3/uL (4.0-11.0) Red Blood Count 3.70 x10^6/uL (3.50-5.40) Hemoglobin 10.8 g/dL (12.0-15.5) Hematocrit 32.4 % (36.0-47.0) Mean Corpuscular Volume 88 fL (79-100) Mean Corpuscular Hemoglobin 29 pg (25-35) Mean Corpuscular Hemoglobin Concent 33 g/dL (31-37) Red Cell Distribution Width 14.2 % (11.5-14.5) Platelet Count 100 x10^3/uL (140-400) Neutrophils (%) (Auto) 85 % (31-73) Lymphocytes (%) (Auto) 11 % (24-48) Monocytes (%) (Auto) 4 % (0-9) Eosinophils (%) (Auto) 0 % (0-3) Basophils (%) (Auto) 0 % (0-3) Neutrophils # (Auto) 3.2 x10^3/uL (1.8-7.7) Lymphocytes # (Auto) 0.4 x10^3/uL (1.0-4.8) Monocytes # (Auto) 0.1 x10^3/uL (0.0-1.1) Eosinophils # (Auto) 0.0 x10^3/uL (0.0-0.7) Basophils # (Auto) 0.0 x10^3/uL (0.0-0.2) Segmented Neutrophils % 73 % (35-66) Band Neutrophils % 10 % (0-9) Lymphocytes % 14 % (24-48) Monocytes % 3 % (0-10) Toxic Granulation Slight Platelet Estimate Decreased (ADEQUATE) Polychromasia Slight Sodium Level 133 mmol/L (136-145) Potassium Level 4.0 mmol/L (3.5-5.1) Chloride Level 100 mmol/L (98-107) Carbon Dioxide Level 24 mmol/L (21-32) Anion Gap 9 (6-14) Blood Urea Nitrogen 17 mg/dL (7-20) Creatinine 1.0 mg/dL (0.6-1.0) Estimated GFR (Cockcroft-Gault) 58.0 Glucose Level 416 mg/dL (70-99) Calcium Level 7.9 mg/dL (8.5-10.1) Phosphorus Level 2.6 mg/dL (2.6-4.7) Magnesium Level 1.9 mg/dL (1.8-2.4) Test 01/22/20 07:00 01/22/20 07:57 White Blood Count 2.4 x10^3/uL (4.0-11.0) Red Blood Count 3.97 x10^6/uL (3.50-5.40) Hemoglobin 11.7 g/dL (12.0-15.5) Hematocrit 34.2 % (36.0-47.0) Mean Corpuscular Volume 86 fL (79-100) Mean Corpuscular Hemoglobin 29 pg (25-35) Mean Corpuscular Hemoglobin Concent 34 g/dL (31-37) Red Cell Distribution Width 13.9 % (11.5-14.5) Platelet Count 101 x10^3/uL (140-400) Neutrophils (%) (Auto) 76 % (31-73) Lymphocytes (%) (Auto) 18 % (24-48) Monocytes (%) (Auto) 5 % (0-9) Eosinophils (%) (Auto) 0 % (0-3) Basophils (%) (Auto) 0 % (0-3) Neutrophils # (Auto) 1.8 x10^3/uL (1.8-7.7) Lymphocytes # (Auto) 0.4 x10^3/uL (1.0-4.8) Monocytes # (Auto) 0.1 x10^3/uL (0.0-1.1) Eosinophils # (Auto) 0.0 x10^3/uL (0.0-0.7) Basophils # (Auto) 0.0 x10^3/uL (0.0-0.2) Sodium Level 136 mmol/L (136-145) Potassium Level 4.2 mmol/L (3.5-5.1) Chloride Level 102 mmol/L (98-107) Carbon Dioxide Level 23 mmol/L (21-32) Anion Gap 11 (6-14) Blood Urea Nitrogen 18 mg/dL (7-20) Creatinine 0.9 mg/dL (0.6-1.0) Estimated GFR (Cockcroft-Gault) 65.2 Glucose Level 321 mg/dL (70-99) Calcium Level 8.5 mg/dL (8.5-10.1) Total Bilirubin 0.4 mg/dL (0.2-1.0) Direct Bilirubin 0.2 mg/dL (0.0-0.2) Aspartate Amino Transf (AST/SGOT) 54 U/L (15-37) Alanine Aminotransferase (ALT/SGPT) 60 U/L (14-59) Alkaline Phosphatase 170 U/L (46-116) Total Protein 6.1 g/dL (6.4-8.2) Albumin 3.0 g/dL (3.4-5.0) Glucose (Fingerstick) 405 mg/dL (70-99) Medications Active Scripts Medications Dose Route/Sig Max Daily Dose Days Date Category Multivitamins (Multivitamin) 1 Each Tablet 1 Tab PO DAILY 04/13/18 Reported Linzess (Linaclotide) 145 Mcg Capsule 145 Mcg PO DAILY07 04/13/18 Reported Aldactone (Spironolactone) 25 Mg Tablet 1 Tab PO DAILY 04/13/18 Reported Diphenhydramine Hcl 50 Mg Capsule 1 Cap PO QHS PRN 04/13/18 Reported Folbic Rf Tablet (B12/Levomefolate Calcium/B-6) 1 Each Tablet 1 Each PO 12/03/17 Reported Amlodipine Besylate 5 Mg Tablet 5 Mg PO DAILY 12/03/17 Reported Ambien (Zolpidem Tartrate) 10 Mg Tablet 1 Tab PO QHS PRN 02/03/16 Reported Glimepiride 2 Mg Tablet 4 Mg PO BID 02/02/16 Reported Lipitor (Atorvastatin Calcium) 20 Mg Tablet 1 Tab PO DAILY 02/02/16 Reported Januvia (Sitagliptin Phosphate) 100 Mg Tablet 1 Tab PO DAILY 02/02/16 Reported Impression . IMPRESSION: 1. Acute hypoxemic respiratory failure secondary to COVID-19 viral pneumonia. 2. COVID-19 viral pneumonia. 3. Nausea and vomiting. 4. Lymphopenia. 5. Thrombocytopenia. 6. Obesity. Plan . Continue 5-day course of remdesivir, discussed with Dr. Yuen Antibiotics Oxygen supplementation Steroids DVT prophylaxis Up to chair YAMIL BAUER MD Jan 22, 2020 08:44
[2020-01-22] MEDS: ASCORBIC ACID 1,000 MG TABLET PO SCH ×3 (09:01→22:15)
[2020-01-22] MEDS: BENZONATATE 100 MG CAPSULE. PO SCH ×3 (09:02→22:17)
[2020-01-22] MEDS: amLODIPine BESYLATE 5 MG TABLET PO SCH (09:02)
[2020-01-22] MEDS: MULTIVITAMIN with MINERAL TABLET. PO SCH (09:02)
[2020-01-22] MEDS: ATORVASTATIN CALCIUM 20 MG TABLET PO SCH (09:02)
[2020-01-22] MEDS: methylPREDNISolone SOD SUCC PF 40 MG/ML VIAL. IV SCH (09:03)
[2020-01-22] MEDS: LACTOBACILLUS RHAMNOSUS GG 1 CAPSULE. PO SCH ×2 (09:03→22:16)
[2020-01-22] MEDS: FAMOTIDINE 20 MG/2 ML VIAL IVP SCH (09:03)
[2020-01-22] MEDS: ENOXAPARIN 40 MG/0.4 ML SYRINGE. SQ SCH ×2 (09:04→22:15)
[2020-01-22] MEDS: INSULIN LISPRO 300 UNITS/3 ML VIAL. SQ SCH ×3 (09:54→17:34)
[2020-01-22] MEDS: IPRATROPIUM/ALBUTEROL 20/100mcg/INH INHALER. INH SCH ×4 (10:37→22:14)
--- NOTE | 2020-01-22 10:46 | PDOC ---
Date of Service: DATE: 01/22/20 TIME: 10:36 Subjective: Subjective: [birth year]. Objective: Objective: D/w nurse - tolerating diet w/o n/v, stooling w/o issue - held Amitiza and pt says she usually doesn't need anything for constipation. Vital Signs: Vital Signs Date Time Temp Pulse Resp B/P (MAP) Pulse Ox O2 Delivery O2 Flow Rate FiO2 01/22/20 09:02 103 143/70 01/22/20 07:00 97.3 20 94 Nasal Cannula 2.0 97.3 Labs: Laboratory Tests Test 01/21/20 11:10 01/21/20 14:00 01/21/20 16:47 01/21/20 21:10 Glucose (Fingerstick) 338 mg/dL 471 mg/dL 376 mg/dL White Blood Count 3.8 x10^3/uL Red Blood Count 3.70 x10^6/uL Hemoglobin 10.8 g/dL Hematocrit 32.4 % Mean Corpuscular Volume 88 fL Mean Corpuscular Hemoglobin 29 pg Mean Corpuscular Hemoglobin Concent 33 g/dL Red Cell Distribution Width 14.2 % Platelet Count 100 x10^3/uL Neutrophils (%) (Auto) 85 % Lymphocytes (%) (Auto) 11 % Monocytes (%) (Auto) 4 % Eosinophils (%) (Auto) 0 % Basophils (%) (Auto) 0 % Neutrophils # (Auto) 3.2 x10^3/uL Lymphocytes # (Auto) 0.4 x10^3/uL Monocytes # (Auto) 0.1 x10^3/uL Eosinophils # (Auto) 0.0 x10^3/uL Basophils # (Auto) 0.0 x10^3/uL Segmented Neutrophils % 73 % Band Neutrophils % 10 % Lymphocytes % 14 % Monocytes % 3 % Toxic Granulation Slight Platelet Estimate Decreased Polychromasia Slight Sodium Level 133 mmol/L Potassium Level 4.0 mmol/L Chloride Level 100 mmol/L Carbon Dioxide Level 24 mmol/L Anion Gap 9 Blood Urea Nitrogen 17 mg/dL Creatinine 1.0 mg/dL Estimated GFR (Cockcroft-Gault) 58.0 Glucose Level 416 mg/dL Calcium Level 7.9 mg/dL Phosphorus Level 2.6 mg/dL Magnesium Level 1.9 mg/dL Test 01/22/20 07:00 01/22/20 07:57 White Blood Count 2.4 x10^3/uL Red Blood Count 3.97 x10^6/uL Hemoglobin 11.7 g/dL Hematocrit 34.2 % Mean Corpuscular Volume 86 fL Mean Corpuscular Hemoglobin 29 pg Mean Corpuscular Hemoglobin Concent 34 g/dL Red Cell Distribution Width 13.9 % Platelet Count 101 x10^3/uL Neutrophils (%) (Auto) 76 % Lymphocytes (%) (Auto) 18 % Monocytes (%) (Auto) 5 % Eosinophils (%) (Auto) 0 % Basophils (%) (Auto) 0 % Neutrophils # (Auto) 1.8 x10^3/uL Lymphocytes # (Auto) 0.4 x10^3/uL Monocytes # (Auto) 0.1 x10^3/uL Eosinophils # (Auto) 0.0 x10^3/uL Basophils # (Auto) 0.0 x10^3/uL Sodium Level 136 mmol/L Potassium Level 4.2 mmol/L Chloride Level 102 mmol/L Carbon Dioxide Level 23 mmol/L Anion Gap 11 Blood Urea Nitrogen 18 mg/dL Creatinine 0.9 mg/dL Estimated GFR (Cockcroft-Gault) 65.2 Glucose Level 321 mg/dL Calcium Level 8.5 mg/dL Total Bilirubin 0.4 mg/dL Direct Bilirubin 0.2 mg/dL Aspartate Amino Transf (AST/SGOT) 54 U/L Alanine Aminotransferase (ALT/SGPT) 60 U/L Alkaline Phosphatase 170 U/L Total Protein 6.1 g/dL Albumin 3.0 g/dL Glucose (Fingerstick) 405 mg/dL PE: GEN: in COVID isolation LUNGS: NC 2L HEART: mildly tachycardic ABD: non-distended NEURO/PSYCH: A & O 3 A/P: COVID-19 infection N/v - resolved Pancytopenia, elevated LFTs Fatty liver, GB polyp vs stone -- Follow labs. No recurrent n/v - continue support per GI for now, consider furhter workup as outpt if indicated. Apparently constipation not an issue - stop Amitiza. 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 Justicifation of Admission Dx: Justifications for Admission: Justification of Admission Dx: Yes RIK CARDOZA Jan 22, 2020 10:46
[2020-01-22] MEDS: REMDESIVIR 100mg in NORMAL SALINE 250ML X 4 DAYS IV SCH (11:17)
--- NOTE | 2020-01-22 11:33 | PDOC ---
[employer] PROGRESS NOTE Date of Service DOS: DATE: 01/22/20 TIME: 11:31 Chief Complaint Chief Complaint Respiratory failure COVID-19 Abnormal abdominal ultrasound with gallstone and hepatosteatosis and gallbladder polyp Acute generalized malaise due to COVID-19 infection Intractable nausea vomiting Thrombocytopenia Lymphopenia Overweight History of the following; Diabetes-Type II, High Cholesterol, Hypertension, Insomnia Hysterectomy, Tonsillectomy, L knee, RIGHT SHOULDER, myomectomy History of Present Illness History of Present Illness 01/22/2020 Patient seen and examined on the [facility]-19 unit She is feeling a little better today 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 Discussed with RN Discussed with case management Chart reviewed I called the pharmacy to discuss her medications 01/21/2020 Patient seen and examined on the [facility] floor She is on oxygen per nasal cannula Appears quite weak Chart reviewed Discussed with RN at length Discussed with case management I went ahead and ordered pulmonary GI and infectious disease consults Also add in steroids and vitamins and spoke with the pharmacy Also added in Combivent metered-dose inhaler Vitals/I&O Vitals/I&O: Vital Signs Date Time Temp Pulse Resp B/P (MAP) Pulse Ox O2 Delivery O2 Flow Rate FiO2 01/22/20 09:02 103 143/70 01/22/20 07:00 97.3 20 94 Nasal Cannula 2.0 97.3 I & O 01/21/20 01/21/20 01/22/20 15:00 23:00 07:00 Intake Total 0 ml Output Total 800 ml 600 ml Balance -800 ml -600 ml 0 ml Physical Exam Physical Exam: GENERAL: Alert and oriented x 3. Tired appearing female in no acute distress. HEENT: Normocephalic, atraumatic, anicteric. Oral mucosa moist. NECK: Supple. LUNGS: Decreased breath sounds at the bases. No wheezing. HEART: S1, S2. No gallops or murmurs. ABDOMEN: Soft, obese. Bowel sounds present, nontender, nondistended. EXTREMITIES: No edema, no cyanosis. DERMATOLOGIC: Warm, dry. No generalized rash. NEUROLOGIC: Alert and oriented x 3, grossly nonfocal. PSYCHIATRIC: Cooperative, appropriate mood and affect. General: Alert, Oriented X3, mild distress Heart: Regular rate, No murmurs Abdomen: Normal bowel sounds Extremities: No clubbing, No cyanosis Skin: No rashes Labs Labs: Laboratory Tests Test 01/21/20 14:00 01/21/20 16:47 01/21/20 21:10 01/22/20 07:00 White Blood Count 3.8 x10^3/uL (4.0-11.0) 2.4 x10^3/uL (4.0-11.0) Red Blood Count 3.70 x10^6/uL (3.50-5.40) 3.97 x10^6/uL (3.50-5.40) Hemoglobin 10.8 g/dL (12.0-15.5) 11.7 g/dL (12.0-15.5) Hematocrit 32.4 % (36.0-47.0) 34.2 % (36.0-47.0) Mean Corpuscular Volume 88 fL (79-100) 86 fL (79-100) Mean Corpuscular Hemoglobin 29 pg (25-35) 29 pg (25-35) Mean Corpuscular Hemoglobin Concent 33 g/dL (31-37) 34 g/dL (31-37) Red Cell Distribution Width 14.2 % (11.5-14.5) 13.9 % (11.5-14.5) Platelet Count 100 x10^3/uL (140-400) 101 x10^3/uL (140-400) Neutrophils (%) (Auto) 85 % (31-73) 76 % (31-73) Lymphocytes (%) (Auto) 11 % (24-48) 18 % (24-48) Monocytes (%) (Auto) 4 % (0-9) 5 % (0-9) Eosinophils (%) (Auto) 0 % (0-3) 0 % (0-3) Basophils (%) (Auto) 0 % (0-3) 0 % (0-3) Neutrophils # (Auto) 3.2 x10^3/uL (1.8-7.7) 1.8 x10^3/uL (1.8-7.7) Lymphocytes # (Auto) 0.4 x10^3/uL (1.0-4.8) 0.4 x10^3/uL (1.0-4.8) Monocytes # (Auto) 0.1 x10^3/uL (0.0-1.1) 0.1 x10^3/uL (0.0-1.1) Eosinophils # (Auto) 0.0 x10^3/uL (0.0-0.7) 0.0 x10^3/uL (0.0-0.7) Basophils # (Auto) 0.0 x10^3/uL (0.0-0.2) 0.0 x10^3/uL (0.0-0.2) Segmented Neutrophils % 73 % (35-66) Band Neutrophils % 10 % (0-9) Lymphocytes % 14 % (24-48) Monocytes % 3 % (0-10) Toxic Granulation Slight Platelet Estimate Decreased (ADEQUATE) Polychromasia Slight Sodium Level 133 mmol/L (136-145) 136 mmol/L (136-145) Potassium Level 4.0 mmol/L (3.5-5.1) 4.2 mmol/L (3.5-5.1) Chloride Level 100 mmol/L (98-107) 102 mmol/L (98-107) Carbon Dioxide Level 24 mmol/L (21-32) 23 mmol/L (21-32) Anion Gap 9 (6-14) 11 (6-14) Blood Urea Nitrogen 17 mg/dL (7-20) 18 mg/dL (7-20) Creatinine 1.0 mg/dL (0.6-1.0) 0.9 mg/dL (0.6-1.0) Estimated GFR (Cockcroft-Gault) 58.0 65.2 Glucose Level 416 mg/dL (70-99) 321 mg/dL (70-99) Calcium Level 7.9 mg/dL (8.5-10.1) 8.5 mg/dL (8.5-10.1) Phosphorus Level 2.6 mg/dL (2.6-4.7) Magnesium Level 1.9 mg/dL (1.8-2.4) Glucose (Fingerstick) 471 mg/dL (70-99) 376 mg/dL (70-99) Total Bilirubin 0.4 mg/dL (0.2-1.0) Direct Bilirubin 0.2 mg/dL (0.0-0.2) Aspartate Amino Transf (AST/SGOT) 54 U/L (15-37) Alanine Aminotransferase (ALT/SGPT) 60 U/L (14-59) Alkaline Phosphatase 170 U/L (46-116) Total Protein 6.1 g/dL (6.4-8.2) Albumin 3.0 g/dL (3.4-5.0) Test 01/22/20 07:57 Glucose (Fingerstick) 405 mg/dL (70-99) Review of Systems Review of Systems: No new complaints today she feels little better Assessment and Plan Assessmemt and Plan Problems Medical Problems: (1) COVID-19 virus infection Status: Acute (2) Dehydration Status: Acute (3) Hyperglycemia Status: Acute (4) Nausea & vomiting Status: Acute Respiratory failure COVID-19 Abnormal abdominal ultrasound with gallstone and hepatosteatosis and gallbladder polyp Acute generalized malaise due to COVID-19 infection Intractable nausea vomiting Thrombocytopenia Lymphopenia Overweight History of the following; Diabetes-Type II, High Cholesterol, Hypertension, Insomnia Hysterectomy, Tonsillectomy, L knee, RIGHT SHOULDER, myomectomy Plan IV Rocephin IV azithromycin IV Solu-Medrol Multiple vitamin with minerals Combivent metered-dose inhaler O2 per nasal cannula We are doing a 5-day course of remdesivir Appreciate GI pulmonary and infectious disease input Home meds Sliding scale insulin We are resuming her home p.o. diabetic meds and I talked with pharmacy about this DVT prophylaxis Full code Trend labs Prognosis guarded but now improving quite a bit she looks much better Comment Review of Relevant I have reviewed the following items bora (where applicable) has been applied. Medications: Current Medications Medications (Trade) Dose Ordered Sig/Jasper Route PRN Reason Start Time Stop Time Status Last Admin Dose Admin Albuterol/ Ipratropium (Combivent Respimat 20-100 Mcg) 1 puff RTQID INH 01/21/20 12:00 01/22/20 10:37 Remdesivir 100 mg/ Sodium Chloride 230 ml @ 460 mls/hr Q24H IV 01/22/20 11:00 01/25/20 11:29 01/22/20 11:17 Benzonatate (Tessalon Perle) 100 mg [id number] PO 01/21/20 14:00 01/22/20 09:02 Famotidine (Pepcid Vial) 20 mg BID IVP 01/21/20 12:00 01/22/20 10:49 DC 01/22/20 09:03 Lactobacillus Rhamnosus (Culturelle) 1 cap BID PO 01/21/20 21:00 01/22/20 09:03 Zolpidem Tartrate (Ambien) 10 mg PRN QHS PRN PO INSOMNIA 2ND CHOICE 01/21/20 21:00 01/21/20 21:11 Justifications for Admission Other Justification + COVID INfection ARTI DELUCA III DO Jan 22, 2020 11:33
[2020-01-22 11:57] VITALS: BP 165/79
[2020-01-22] MEDS: LINAGLIPTIN 5 MG TABLET PO SCH (13:45)
[2020-01-22] MEDS: GLIMEPIRIDE 2 MG TABLET. PO SCH ×2 (13:45→16:38)
[2020-01-22 15:00] VITALS: BP 157/75
[2020-01-22] MEDS: cefTRIAXone IV Push 1 GM VIAL. IVP SCH (15:41)
[2020-01-22] MEDS: AZITHROMYCIN 500 MG in IV NORMAL SALINE 250ML 250 ML IV SCH (15:43)
--- NOTE | 2020-01-22 15:43 | NUR ---
SW following for discharge planning. Spoke with RN and reviewed chart. Pt from home. Pt on Remdesivir, day 2. Discharge plan remains home, self-care. Possible 6 min walk needed. SW following.
[2020-01-22 19:00] VITALS: BP 139/66
[2020-01-22] MEDS ORDERED: INSULIN LISPRO 300 UNITS/3 ML VIAL. SQ ONE (21:30)
[2020-01-22] MEDS: FAMOTIDINE 20 MG TABLET. PO SCH (22:15)
[2020-01-22] MEDS: diphenhydrAMINE HCL 25 MG CAPSULE PO PRN (22:16)
[2020-01-22] MEDS: ZOLPIDEM 5 MG TABLET. PO PRN (22:17)
[2020-01-22 23:04] VITALS: BP 155/74
[2020-01-23] MEDS: methylPREDNISolone SOD SUCC PF 40 MG/ML VIAL. IV SCH ×3 (00:59→21:13)
[2020-01-23] MEDS: THIAMINE INJ 100 MG in IV DEXTROSE 5% 50 ML IV SCH ×2 (01:00→06:03)
[2020-01-23 04:42] LABS: BASO % 0 % (0-3); EOS % 0 % (0-3); HEMATOCRIT 33.2 % (36.0-47.0); HEMOGLOBIN 11.1 g/dL (12.0-15.5); LYMPH # 0.4 x10^3/uL (1.0-4.8); LYMPH % 7 % (24-48); MEAN CORPUSCULAR HEMOGLOBIN 29 pg (25-35); MEAN CORPUSCULAR HGB CONC 33 g/dL (31-37); MEAN CORPUSCULAR VOLUME 86 fL (79-100); MONO # 0.2 x10^3/uL (0.0-1.1); MONO % 4 % (0-9); NEUT # 5.4 x10^3/uL (1.8-7.7); NEUT % 89 % (31-73); PLATELET COUNT 125 x10^3/uL (140-400); RED BLOOD COUNT 3.84 x10^6/uL (3.50-5.40); RED CELL DISTRIBUTION WIDTH 14.1 % (11.5-14.5)
[2020-01-23 04:55] LABS: CALCIUM 8.6 mg/dL (8.5-10.1); CREATININE 0.9 mg/dL (0.6-1.0); GFR 65.2; POTASSIUM 4.5 mmol/L (3.5-5.1)
[2020-01-23 05:04] LABS: ALBUMIN 2.9 g/dL (3.4-5.0); DIRECT BILIRUBIN 0.1 mg/dL (0.0-0.2); TOTAL BILIRUBIN 0.4 mg/dL (0.2-1.0); TOTAL PROTEIN 6.4 g/dL (6.4-8.2)
[2020-01-23] MEDS: guaiFENesin DM 200MG/20MG 10 ML SYRUP PO PRN ×2 (06:03→08:58)
[2020-01-23 07:05] VITALS: BP 135/82
--- NOTE | 2020-01-23 08:36 | PDOC ---
Infectious Disease Note Subjective: Subjective Patient without complaints On room air basically since yesterday Used O2 prophylactically at night Continues to have dry cough Denies nausea, vomiting, diarrhea, abdominal pain,Chest pain Vital Signs: Vital Signs Vital Signs Date Time Temp Pulse Resp B/P (MAP) Pulse Ox O2 Delivery O2 Flow Rate FiO2 01/22/20 23:04 97.2 93 20 155/74 (101) 94 Room Air 97.2 01/22/20 15:00 2.0 Physical Exam: PHYSICAL EXAM GENERAL: Alert and oriented x 3. Tired appearing female in no acute distress. HEENT: Normocephalic, atraumatic, anicteric. Oral mucosa moist. NECK: Supple. LUNGS: Decreased breath sounds at the bases. No wheezing. HEART: S1, S2. No gallops or murmurs. ABDOMEN: Soft, obese. Bowel sounds present, nontender, nondistended. EXTREMITIES: No edema, no cyanosis. DERMATOLOGIC: Warm, dry. No generalized rash. NEUROLOGIC: Alert and oriented x 3, grossly nonfocal. PSYCHIATRIC: Cooperative, appropriate mood and affect. Medications: Inpatient Meds: Current Medications Medications (Trade) Dose Ordered Sig/Jasper Start Time Stop Time Status Last Admin Dose Admin Acetaminophen (Tylenol) 650 mg PRN Q4HRS PRN 01/20/20 16:00 01/21/20 08:41 650 MG Albuterol/ Ipratropium (Combivent Respimat 20-100 Mcg) 1 puff RTQID 01/21/20 12:00 01/22/20 22:14 1 PUFF Amlodipine Besylate (Norvasc) 5 mg DAILY 01/21/20 09:00 01/22/20 09:02 5 MG Ascorbic Acid (Vitamin C) 3,000 mg TID 01/20/20 21:00 01/22/20 22:15 3,000 MG Atorvastatin Calcium (Lipitor) 20 mg DAILY 01/21/20 09:00 01/22/20 09:02 20 MG Azithromycin 500 mg/Sodium Chloride 250 ml @ 250 mls/hr Q24H 01/20/20 17:00 01/22/20 15:43 250 MLS/HR Benzonatate (Tessalon Perle) 100 mg [id number] 01/21/20 14:00 01/22/20 22:17 100 MG Ceftriaxone Sodium (Rocephin) 1 gm Q24H 01/20/20 17:00 01/22/20 15:41 1 GM Dextrose (Dextrose 50%-Water Syringe) 12.5 gm PRN Q15MIN PRN 01/20/20 16:00 Diphenhydramine HCl (Benadryl) 50 mg PRN QHS PRN 01/20/20 16:30 01/22/20 22:16 50 MG Docusate Sodium (Colace) 100 mg PRN DAILY PRN 01/20/20 16:00 Enoxaparin Sodium (Lovenox 40mg Syringe) 40 mg BID 01/20/20 17:00 01/22/20 22:15 40 MG Famotidine (Pepcid Vial) 20 mg BID 01/21/20 12:00 01/22/20 10:49 DC 01/22/20 09:03 20 MG Famotidine (Pepcid) 20 mg QHS 01/22/20 21:00 01/22/20 22:15 20 MG Glimepiride (Amaryl) 4 mg BIDWMEALS 01/22/20 12:00 01/22/20 16:38 4 MG Guaifenesin (Robitussin Dm) 10 ml PRN Q6HRS PRN 01/21/20 11:00 01/23/20 06:03 10 ML Insulin Human Lispro (HumaLOG) 8 units 1X ONCE 01/22/20 21:30 01/22/20 21:31 DC 01/22/20 22:18 8 UNITS Lactobacillus Rhamnosus (Culturelle) 1 cap BID 01/21/20 21:00 01/22/20 22:16 1 CAP Linagliptin (Tradjenta) 5 mg DAILY 01/22/20 12:00 01/22/20 13:45 5 MG Lubiprostone (Amitiza) 24 mcg BIDWMEALS 01/20/20 17:00 01/22/20 10:48 DC 01/21/20 16:04 24 MCG Methylprednisolone Sodium Succinate (SOLU-Medrol 40MG VIAL) 40 mg BID 01/21/20 09:00 01/23/20 00:59 40 MG Metoclopramide HCl (Reglan Vial) 10 mg 1X ONCE 01/20/20 15:00 01/20/20 15:01 DC 01/20/20 15:30 10 MG Morphine Sulfate (Morphine Sulfate) 2 mg PRN Q2HR PRN 01/20/20 04:00 01/21/20 03:59 DC Multivitamins (Thera M Plus) 1 tab DAILY 01/21/20 09:00 UNV Ondansetron HCl (Zofran) 4 mg PRN Q6HRS PRN 01/20/20 16:00 Oxycodone/ Acetaminophen (Percocet 5/325) 2 tab PRN Q4HRS PRN 01/20/20 16:00 Remdesivir 100 mg/ Sodium Chloride 230 ml @ 460 mls/hr Q24H 01/22/20 11:00 01/25/20 11:29 01/22/20 11:17 460 MLS/HR Remdesivir 200 mg/ Sodium Chloride 210 ml @ 210 mls/hr 1X ONCE 01/21/20 11:00 01/21/20 11:59 DC 01/21/20 11:15 210 MLS/HR Sennosides (Senna) 17.2 mg PRN BID PRN 01/20/20 16:00 Sodium Chloride 1,000 ml @ 100 mls/hr Q10H 01/20/20 16:00 01/21/20 11:54 DC 01/20/20 17:00 100 MLS/HR Thiamine HCl 100 mg/Dextrose 51 ml @ 102 mls/hr Q8HRS 01/20/20 22:00 01/23/20 06:01 DC 01/23/20 06:03 102 MLS/HR Zolpidem Tartrate (Ambien) 10 mg PRN QHS PRN 01/21/20 21:00 01/22/20 22:17 10 MG Labs: Lab Laboratory Tests Test 01/22/20 11:25 01/22/20 16:43 01/22/20 21:09 01/22/20 23:45 Glucose (Fingerstick) 358 mg/dL (70-99) 433 mg/dL (70-99) 424 mg/dL (70-99) 381 mg/dL (70-99) Test 01/23/20 04:00 White Blood Count 6.0 x10^3/uL (4.0-11.0) Red Blood Count 3.84 x10^6/uL (3.50-5.40) Hemoglobin 11.1 g/dL (12.0-15.5) Hematocrit 33.2 % (36.0-47.0) Mean Corpuscular Volume 86 fL (79-100) Mean Corpuscular Hemoglobin 29 pg (25-35) Mean Corpuscular Hemoglobin Concent 33 g/dL (31-37) Red Cell Distribution Width 14.1 % (11.5-14.5) Platelet Count 125 x10^3/uL (140-400) Neutrophils (%) (Auto) 89 % (31-73) Lymphocytes (%) (Auto) 7 % (24-48) Monocytes (%) (Auto) 4 % (0-9) Eosinophils (%) (Auto) 0 % (0-3) Basophils (%) (Auto) 0 % (0-3) Neutrophils # (Auto) 5.4 x10^3/uL (1.8-7.7) Lymphocytes # (Auto) 0.4 x10^3/uL (1.0-4.8) Monocytes # (Auto) 0.2 x10^3/uL (0.0-1.1) Eosinophils # (Auto) 0.0 x10^3/uL (0.0-0.7) Basophils # (Auto) 0.0 x10^3/uL (0.0-0.2) Sodium Level 136 mmol/L (136-145) Potassium Level 4.5 mmol/L (3.5-5.1) Chloride Level 99 mmol/L (98-107) Carbon Dioxide Level 24 mmol/L (21-32) Anion Gap 13 (6-14) Blood Urea Nitrogen 27 mg/dL (7-20) Creatinine 0.9 mg/dL (0.6-1.0) Estimated GFR (Cockcroft-Gault) 65.2 Glucose Level 353 mg/dL (70-99) Calcium Level 8.6 mg/dL (8.5-10.1) Total Bilirubin 0.4 mg/dL (0.2-1.0) Direct Bilirubin 0.1 mg/dL (0.0-0.2) Aspartate Amino Transf (AST/SGOT) 29 U/L (15-37) Alanine Aminotransferase (ALT/SGPT) 50 U/L (14-59) Alkaline Phosphatase 151 U/L (46-116) Total Protein 6.4 g/dL (6.4-8.2) Albumin 2.9 g/dL (3.4-5.0) Objective: Assessment: 1. COVID-19 infection. 2. Febrile illness POA from above.resolved 3. . Acute hypoxic respiratory failure. 4. Generalized myalgia.improving 5. Nausea and vomiting, resolved 6. Diabetes. 7. Lymphopenia.resolved 8. Thrombocytopenia 9. Hyponatremia Plan: Plan of Care 1. Continue supportive treatment. 2. Continue remdesivir /. If patient remains off O2 with ambulation, can DC remdesivir and discharged home from ID standpoint 3. Continue steroids per Pulmonary. 4. DC ceftriaxone and azithromycin 5.Continue supportive care. Discussed with Dr. Yuen Discussed with HUMZA BELTRAN MD Jan 23, 2020 08:36
--- NOTE | 2020-01-23 08:41 | PDOC ---
PULMONARY PROGRESS NOTES DATE: 01/23/20 TIME: 08:41 Subjective Patient currently on 2 L not more short of air Vitals Vital Signs Date Time Temp Pulse Resp B/P (MAP) Pulse Ox O2 Delivery O2 Flow Rate FiO2 01/22/20 23:04 97.2 93 20 155/74 (101) 94 Room Air 97.2 01/22/20 15:00 2.0 Comments Patient seen doing the pandemic, visual inspection no respiratory distress no paroxysmal breathing pattern no increasing edema no skin rash Labs Laboratory Tests Test 01/21/20 11:10 01/21/20 14:00 01/21/20 16:47 01/21/20 21:10 Glucose (Fingerstick) 338 mg/dL (70-99) 471 mg/dL (70-99) 376 mg/dL (70-99) White Blood Count 3.8 x10^3/uL (4.0-11.0) Red Blood Count 3.70 x10^6/uL (3.50-5.40) Hemoglobin 10.8 g/dL (12.0-15.5) Hematocrit 32.4 % (36.0-47.0) Mean Corpuscular Volume 88 fL (79-100) Mean Corpuscular Hemoglobin 29 pg (25-35) Mean Corpuscular Hemoglobin Concent 33 g/dL (31-37) Red Cell Distribution Width 14.2 % (11.5-14.5) Platelet Count 100 x10^3/uL (140-400) Neutrophils (%) (Auto) 85 % (31-73) Lymphocytes (%) (Auto) 11 % (24-48) Monocytes (%) (Auto) 4 % (0-9) Eosinophils (%) (Auto) 0 % (0-3) Basophils (%) (Auto) 0 % (0-3) Neutrophils # (Auto) 3.2 x10^3/uL (1.8-7.7) Lymphocytes # (Auto) 0.4 x10^3/uL (1.0-4.8) Monocytes # (Auto) 0.1 x10^3/uL (0.0-1.1) Eosinophils # (Auto) 0.0 x10^3/uL (0.0-0.7) Basophils # (Auto) 0.0 x10^3/uL (0.0-0.2) Segmented Neutrophils % 73 % (35-66) Band Neutrophils % 10 % (0-9) Lymphocytes % 14 % (24-48) Monocytes % 3 % (0-10) Toxic Granulation Slight Platelet Estimate Decreased (ADEQUATE) Polychromasia Slight Sodium Level 133 mmol/L (136-145) Potassium Level 4.0 mmol/L (3.5-5.1) Chloride Level 100 mmol/L (98-107) Carbon Dioxide Level 24 mmol/L (21-32) Anion Gap 9 (6-14) Blood Urea Nitrogen 17 mg/dL (7-20) Creatinine 1.0 mg/dL (0.6-1.0) Estimated GFR (Cockcroft-Gault) 58.0 Glucose Level 416 mg/dL (70-99) Calcium Level 7.9 mg/dL (8.5-10.1) Phosphorus Level 2.6 mg/dL (2.6-4.7) Magnesium Level 1.9 mg/dL (1.8-2.4) Test 01/22/20 07:00 01/22/20 07:57 01/22/20 11:25 01/22/20 16:43 White Blood Count 2.4 x10^3/uL (4.0-11.0) Red Blood Count 3.97 x10^6/uL (3.50-5.40) Hemoglobin 11.7 g/dL (12.0-15.5) Hematocrit 34.2 % (36.0-47.0) Mean Corpuscular Volume 86 fL (79-100) Mean Corpuscular Hemoglobin 29 pg (25-35) Mean Corpuscular Hemoglobin Concent 34 g/dL (31-37) Red Cell Distribution Width 13.9 % (11.5-14.5) Platelet Count 101 x10^3/uL (140-400) Neutrophils (%) (Auto) 76 % (31-73) Lymphocytes (%) (Auto) 18 % (24-48) Monocytes (%) (Auto) 5 % (0-9) Eosinophils (%) (Auto) 0 % (0-3) Basophils (%) (Auto) 0 % (0-3) Neutrophils # (Auto) 1.8 x10^3/uL (1.8-7.7) Lymphocytes # (Auto) 0.4 x10^3/uL (1.0-4.8) Monocytes # (Auto) 0.1 x10^3/uL (0.0-1.1) Eosinophils # (Auto) 0.0 x10^3/uL (0.0-0.7) Basophils # (Auto) 0.0 x10^3/uL (0.0-0.2) Sodium Level 136 mmol/L (136-145) Potassium Level 4.2 mmol/L (3.5-5.1) Chloride Level 102 mmol/L (98-107) Carbon Dioxide Level 23 mmol/L (21-32) Anion Gap 11 (6-14) Blood Urea Nitrogen 18 mg/dL (7-20) Creatinine 0.9 mg/dL (0.6-1.0) Estimated GFR (Cockcroft-Gault) 65.2 Glucose Level 321 mg/dL (70-99) Calcium Level 8.5 mg/dL (8.5-10.1) Total Bilirubin 0.4 mg/dL (0.2-1.0) Direct Bilirubin 0.2 mg/dL (0.0-0.2) Aspartate Amino Transf (AST/SGOT) 54 U/L (15-37) Alanine Aminotransferase (ALT/SGPT) 60 U/L (14-59) Alkaline Phosphatase 170 U/L (46-116) Total Protein 6.1 g/dL (6.4-8.2) Albumin 3.0 g/dL (3.4-5.0) Glucose (Fingerstick) 405 mg/dL (70-99) 358 mg/dL (70-99) 433 mg/dL (70-99) Test 01/22/20 21:09 01/22/20 23:45 01/23/20 04:00 Glucose (Fingerstick) 424 mg/dL (70-99) 381 mg/dL (70-99) White Blood Count 6.0 x10^3/uL (4.0-11.0) Red Blood Count 3.84 x10^6/uL (3.50-5.40) Hemoglobin 11.1 g/dL (12.0-15.5) Hematocrit 33.2 % (36.0-47.0) Mean Corpuscular Volume 86 fL (79-100) Mean Corpuscular Hemoglobin 29 pg (25-35) Mean Corpuscular Hemoglobin Concent 33 g/dL (31-37) Red Cell Distribution Width 14.1 % (11.5-14.5) Platelet Count 125 x10^3/uL (140-400) Neutrophils (%) (Auto) 89 % (31-73) Lymphocytes (%) (Auto) 7 % (24-48) Monocytes (%) (Auto) 4 % (0-9) Eosinophils (%) (Auto) 0 % (0-3) Basophils (%) (Auto) 0 % (0-3) Neutrophils # (Auto) 5.4 x10^3/uL (1.8-7.7) Lymphocytes # (Auto) 0.4 x10^3/uL (1.0-4.8) Monocytes # (Auto) 0.2 x10^3/uL (0.0-1.1) Eosinophils # (Auto) 0.0 x10^3/uL (0.0-0.7) Basophils # (Auto) 0.0 x10^3/uL (0.0-0.2) Sodium Level 136 mmol/L (136-145) Potassium Level 4.5 mmol/L (3.5-5.1) Chloride Level 99 mmol/L (98-107) Carbon Dioxide Level 24 mmol/L (21-32) Anion Gap 13 (6-14) Blood Urea Nitrogen 27 mg/dL (7-20) Creatinine 0.9 mg/dL (0.6-1.0) Estimated GFR (Cockcroft-Gault) 65.2 Glucose Level 353 mg/dL (70-99) Calcium Level 8.6 mg/dL (8.5-10.1) Total Bilirubin 0.4 mg/dL (0.2-1.0) Direct Bilirubin 0.1 mg/dL (0.0-0.2) Aspartate Amino Transf (AST/SGOT) 29 U/L (15-37) Alanine Aminotransferase (ALT/SGPT) 50 U/L (14-59) Alkaline Phosphatase 151 U/L (46-116) Total Protein 6.4 g/dL (6.4-8.2) Albumin 2.9 g/dL (3.4-5.0) Laboratory Tests Test 01/22/20 11:25 01/22/20 16:43 01/22/20 21:09 01/22/20 23:45 Glucose (Fingerstick) 358 mg/dL (70-99) 433 mg/dL (70-99) 424 mg/dL (70-99) 381 mg/dL (70-99) Test 01/23/20 04:00 White Blood Count 6.0 x10^3/uL (4.0-11.0) Red Blood Count 3.84 x10^6/uL (3.50-5.40) Hemoglobin 11.1 g/dL (12.0-15.5) Hematocrit 33.2 % (36.0-47.0) Mean Corpuscular Volume 86 fL (79-100) Mean Corpuscular Hemoglobin 29 pg (25-35) Mean Corpuscular Hemoglobin Concent 33 g/dL (31-37) Red Cell Distribution Width 14.1 % (11.5-14.5) Platelet Count 125 x10^3/uL (140-400) Neutrophils (%) (Auto) 89 % (31-73) Lymphocytes (%) (Auto) 7 % (24-48) Monocytes (%) (Auto) 4 % (0-9) Eosinophils (%) (Auto) 0 % (0-3) Basophils (%) (Auto) 0 % (0-3) Neutrophils # (Auto) 5.4 x10^3/uL (1.8-7.7) Lymphocytes # (Auto) 0.4 x10^3/uL (1.0-4.8) Monocytes # (Auto) 0.2 x10^3/uL (0.0-1.1) Eosinophils # (Auto) 0.0 x10^3/uL (0.0-0.7) Basophils # (Auto) 0.0 x10^3/uL (0.0-0.2) Sodium Level 136 mmol/L (136-145) Potassium Level 4.5 mmol/L (3.5-5.1) Chloride Level 99 mmol/L (98-107) Carbon Dioxide Level 24 mmol/L (21-32) Anion Gap 13 (6-14) Blood Urea Nitrogen 27 mg/dL (7-20) Creatinine 0.9 mg/dL (0.6-1.0) Estimated GFR (Cockcroft-Gault) 65.2 Glucose Level 353 mg/dL (70-99) Calcium Level 8.6 mg/dL (8.5-10.1) Total Bilirubin 0.4 mg/dL (0.2-1.0) Direct Bilirubin 0.1 mg/dL (0.0-0.2) Aspartate Amino Transf (AST/SGOT) 29 U/L (15-37) Alanine Aminotransferase (ALT/SGPT) 50 U/L (14-59) Alkaline Phosphatase 151 U/L (46-116) Total Protein 6.4 g/dL (6.4-8.2) Albumin 2.9 g/dL (3.4-5.0) Medications Active Scripts Medications Dose Route/Sig Max Daily Dose Days Date Category Multivitamins (Multivitamin) 1 Each Tablet 1 Tab PO DAILY 04/13/18 Reported Linzess (Linaclotide) 145 Mcg Capsule 145 Mcg PO DAILY07 04/13/18 Reported Aldactone (Spironolactone) 25 Mg Tablet 1 Tab PO DAILY 04/13/18 Reported Diphenhydramine Hcl 50 Mg Capsule 1 Cap PO QHS PRN 04/13/18 Reported Folbic Rf Tablet (B12/Levomefolate Calcium/B-6) 1 Each Tablet 1 Each PO 12/03/17 Reported Amlodipine Besylate 5 Mg Tablet 5 Mg PO DAILY 12/03/17 Reported Ambien (Zolpidem Tartrate) 10 Mg Tablet 1 Tab PO QHS PRN 02/03/16 Reported Glimepiride 2 Mg Tablet 4 Mg PO BID 02/02/16 Reported Lipitor (Atorvastatin Calcium) 20 Mg Tablet 1 Tab PO DAILY 02/02/16 Reported Januvia (Sitagliptin Phosphate) 100 Mg Tablet 1 Tab PO DAILY 02/02/16 Reported Impression . IMPRESSION: 1. Acute hypoxemic respiratory failure secondary to COVID-19 viral pneumonia. 2. COVID-19 viral pneumonia. 3. Nausea and vomiting. 4. Lymphopenia. 5. Thrombocytopenia. 6. Obesity. Plan . Continue current support, may need 6-minute walk prior to discharge Continue 5-day course of remdesivir, discussed with Dr. Yuen Antibiotics Oxygen supplementation Steroids DVT prophylaxis Up to chair YAMIL BAUER MD Jan 23, 2020 08:41
[2020-01-23] MEDS: LACTOBACILLUS RHAMNOSUS GG 1 CAPSULE. PO SCH ×2 (08:57→21:11)
[2020-01-23] MEDS: IPRATROPIUM/ALBUTEROL 20/100mcg/INH INHALER. INH SCH ×4 (08:57→21:11)
[2020-01-23] MEDS: ASCORBIC ACID 1,000 MG TABLET PO SCH ×3 (08:57→21:12)
[2020-01-23] MEDS: LINAGLIPTIN 5 MG TABLET PO SCH (08:57)
[2020-01-23] MEDS: GLIMEPIRIDE 2 MG TABLET. PO SCH ×2 (08:58→17:33)
[2020-01-23] MEDS: amLODIPine BESYLATE 5 MG TABLET PO SCH (08:58)
[2020-01-23] MEDS: BENZONATATE 100 MG CAPSULE. PO SCH ×3 (08:58→21:12)
[2020-01-23] MEDS: MULTIVITAMIN with MINERAL TABLET. PO SCH (08:58)
[2020-01-23] MEDS: ENOXAPARIN 40 MG/0.4 ML SYRINGE. SQ SCH ×2 (08:58→21:13)
[2020-01-23] MEDS: INSULIN LISPRO 300 UNITS/3 ML VIAL. SQ SCH ×4 (09:06→21:31)
--- NOTE | 2020-01-23 10:08 | PDOC ---
Date of Service: DATE: 01/23/20 TIME: 10:04 Subjective: Subjective: Feels much better from a GI standpoint - no n/v, tolerating diet. Objective: Objective: No GI concerns per nurse. Vital Signs: Vital Signs Date Time Temp Pulse Resp B/P (MAP) Pulse Ox O2 Delivery O2 Flow Rate FiO2 01/23/20 08:58 100 135/82 01/23/20 07:05 97.7 15 91 Nasal Cannula 2.0 97.7 Labs: Laboratory Tests Test 01/22/20 11:25 01/22/20 16:43 01/22/20 21:09 01/22/20 23:45 Glucose (Fingerstick) 358 mg/dL 433 mg/dL 424 mg/dL 381 mg/dL Test 01/23/20 04:00 01/23/20 08:40 White Blood Count 6.0 x10^3/uL Red Blood Count 3.84 x10^6/uL Hemoglobin 11.1 g/dL Hematocrit 33.2 % Mean Corpuscular Volume 86 fL Mean Corpuscular Hemoglobin 29 pg Mean Corpuscular Hemoglobin Concent 33 g/dL Red Cell Distribution Width 14.1 % Platelet Count 125 x10^3/uL Neutrophils (%) (Auto) 89 % Lymphocytes (%) (Auto) 7 % Monocytes (%) (Auto) 4 % Eosinophils (%) (Auto) 0 % Basophils (%) (Auto) 0 % Neutrophils # (Auto) 5.4 x10^3/uL Lymphocytes # (Auto) 0.4 x10^3/uL Monocytes # (Auto) 0.2 x10^3/uL Eosinophils # (Auto) 0.0 x10^3/uL Basophils # (Auto) 0.0 x10^3/uL Sodium Level 136 mmol/L Potassium Level 4.5 mmol/L Chloride Level 99 mmol/L Carbon Dioxide Level 24 mmol/L Anion Gap 13 Blood Urea Nitrogen 27 mg/dL Creatinine 0.9 mg/dL Estimated GFR (Cockcroft-Gault) 65.2 Glucose Level 353 mg/dL Calcium Level 8.6 mg/dL Total Bilirubin 0.4 mg/dL Direct Bilirubin 0.1 mg/dL Aspartate Amino Transf (AST/SGOT) 29 U/L Alanine Aminotransferase (ALT/SGPT) 50 U/L Alkaline Phosphatase 151 U/L Total Protein 6.4 g/dL Albumin 2.9 g/dL Glucose (Fingerstick) 422 mg/dL PE: GEN: in COVID isolation - visual exam done - up getting ready to get in the shower LUNGS: room air when I saw HEART: borderline tachycardic per chart ABD: non-distended NEURO/PSYCH: A & O 3 A/P: COVID-19 infection N/v - resolved Pancytopenia, elevated LFTs - better today Fatty liver, GB polyp vs stone -- Improved GI-barker. Justicifation of Admission Dx: Justifications for Admission: Justification of Admission Dx: Yes RIK CARDOZA Jan 23, 2020 10:08
[2020-01-23 11:05] VITALS: BP 170/70
--- NOTE | 2020-01-23 11:57 | PDOC ---
[employer] PROGRESS NOTE Date of Service DOS: DATE: 01/23/20 TIME: 11:56 Chief Complaint Chief Complaint Respiratory failure COVID-19 Abnormal abdominal ultrasound with gallstone and hepatosteatosis and gallbladder polyp Acute generalized malaise due to COVID-19 infection Intractable nausea vomiting Thrombocytopenia Lymphopenia Overweight History of the following; Diabetes-Type II, High Cholesterol, Hypertension, Insomnia Hysterectomy, Tonsillectomy, L knee, RIGHT SHOULDER, myomectomy History of Present Illness History of Present Illness 01/23/2020 Patient seen and examined on the COVID-19 unit She is feeling better again today but not as good as yesterday Discussed with case management Discussed with infectious disease Chart reviewed 01/22/2020 [facility] She is feeling a little better today Discussed with construction producer Discussed with RN Discussed with case management Chart reviewed I called the pharmacy to discuss her medications 01/21/2020 Patient seen and examined on the COVID-19 floor She is on oxygen per nasal cannula Appears quite weak Chart reviewed Discussed with RN at length Discussed with case management I went ahead and ordered pulmonary GI and infectious disease consults Also add in steroids and vitamins and spoke with the pharmacy Also added in Combivent metered-dose inhaler Vitals/I&O Vitals/I&O: Vital Signs Date Time Temp Pulse Resp B/P (MAP) Pulse Ox O2 Delivery O2 Flow Rate FiO2 01/23/20 08:58 100 135/82 01/23/20 07:05 97.7 15 91 Nasal Cannula 2.0 97.7 I & O 01/22/20 01/22/20 01/23/20 15:00 23:00 07:00 Intake Total 900 ml 700 ml Balance 900 ml 700 ml Physical Exam Physical Exam: GENERAL: Alert and oriented x 3. Tired appearing female in no acute distress. HEENT: Normocephalic, atraumatic, anicteric. Oral mucosa moist. NECK: Supple. LUNGS: Decreased breath sounds at the bases. No wheezing. HEART: S1, S2. No gallops or murmurs. ABDOMEN: Soft, obese. Bowel sounds present, nontender, nondistended. EXTREMITIES: No edema, no cyanosis. DERMATOLOGIC: Warm, dry. No generalized rash. NEUROLOGIC: Alert and oriented x 3, grossly nonfocal. PSYCHIATRIC: Cooperative, appropriate mood and affect. General: Alert, Oriented X3, mild distress Heart: Regular rate, No murmurs Abdomen: Normal bowel sounds Extremities: No clubbing, No cyanosis Skin: No rashes Labs Labs: Laboratory Tests Test 01/22/20 16:43 01/22/20 21:09 01/22/20 23:45 01/23/20 04:00 Glucose (Fingerstick) 433 mg/dL (70-99) 424 mg/dL (70-99) 381 mg/dL (70-99) White Blood Count 6.0 x10^3/uL (4.0-11.0) Red Blood Count 3.84 x10^6/uL (3.50-5.40) Hemoglobin 11.1 g/dL (12.0-15.5) Hematocrit 33.2 % (36.0-47.0) Mean Corpuscular Volume 86 fL (79-100) Mean Corpuscular Hemoglobin 29 pg (25-35) Mean Corpuscular Hemoglobin Concent 33 g/dL (31-37) Red Cell Distribution Width 14.1 % (11.5-14.5) Platelet Count 125 x10^3/uL (140-400) Neutrophils (%) (Auto) 89 % (31-73) Lymphocytes (%) (Auto) 7 % (24-48) Monocytes (%) (Auto) 4 % (0-9) Eosinophils (%) (Auto) 0 % (0-3) Basophils (%) (Auto) 0 % (0-3) Neutrophils # (Auto) 5.4 x10^3/uL (1.8-7.7) Lymphocytes # (Auto) 0.4 x10^3/uL (1.0-4.8) Monocytes # (Auto) 0.2 x10^3/uL (0.0-1.1) Eosinophils # (Auto) 0.0 x10^3/uL (0.0-0.7) Basophils # (Auto) 0.0 x10^3/uL (0.0-0.2) Sodium Level 136 mmol/L (136-145) Potassium Level 4.5 mmol/L (3.5-5.1) Chloride Level 99 mmol/L (98-107) Carbon Dioxide Level 24 mmol/L (21-32) Anion Gap 13 (6-14) Blood Urea Nitrogen 27 mg/dL (7-20) Creatinine 0.9 mg/dL (0.6-1.0) Estimated GFR (Cockcroft-Gault) 65.2 Glucose Level 353 mg/dL (70-99) Calcium Level 8.6 mg/dL (8.5-10.1) Total Bilirubin 0.4 mg/dL (0.2-1.0) Direct Bilirubin 0.1 mg/dL (0.0-0.2) Aspartate Amino Transf (AST/SGOT) 29 U/L (15-37) Alanine Aminotransferase (ALT/SGPT) 50 U/L (14-59) Alkaline Phosphatase 151 U/L (46-116) Total Protein 6.4 g/dL (6.4-8.2) Albumin 2.9 g/dL (3.4-5.0) Test 01/23/20 08:40 01/23/20 11:01 Glucose (Fingerstick) 422 mg/dL (70-99) 469 mg/dL (70-99) Assessment and Plan Assessmemt and Plan Problems Medical Problems: (1) COVID-19 virus infection Status: Acute (2) Dehydration Status: Acute (3) Hyperglycemia Status: Acute (4) Nausea & vomiting Status: Acute Respiratory failure COVID-19 Abnormal abdominal ultrasound with gallstone and hepatosteatosis and gallbladder polyp Acute generalized malaise due to COVID-19 infection Intractable nausea vomiting Thrombocytopenia Lymphopenia Overweight History of the following; Diabetes-Type II, High Cholesterol, Hypertension, Insomnia Hysterectomy, Tonsillectomy, L knee, RIGHT SHOULDER, myomectomy Plan IV Rocephin IV azithromycin IV Solu-Medrol Multiple vitamin with minerals Combivent metered-dose inhaler O2 per nasal cannula We are doing a 5-day course of remdesivir Appreciate GI pulmonary and infectious disease input Home meds Sliding scale insulin We are resuming her home p.o. diabetic meds and I talked with pharmacy about this DVT prophylaxis Full code Trend labs Prognosis guarded but now improving quite a bit she looks much better over the past 48 hours Hope to discharge in a day or 2 after completion of her remdesivir therapy I also called the pharmacy and we added in guaifenesin with codeine syrup for her cough Comment Review of Relevant I have reviewed the following items bora (where applicable) has been applied. Medications: Current Medications Medications (Trade) Dose Ordered Sig/Jasper Route PRN Reason Start Time Stop Time Status Last Admin Dose Admin Famotidine (Pepcid) 20 mg QHS PO 01/22/20 21:00 01/22/20 22:15 Glimepiride (Amaryl) 4 mg BIDWMEALS PO 01/22/20 12:00 01/23/20 08:58 Linagliptin (Tradjenta) 5 mg DAILY PO 01/22/20 12:00 01/23/20 08:57 Insulin Human Lispro (HumaLOG) 0-7 UNITS TIDWMEALS SQ 01/22/20 12:00 01/23/20 09:06 Insulin Human Lispro (HumaLOG) 8 units 1X ONCE SQ 01/22/20 21:30 01/22/20 21:31 DC 01/22/20 22:18 Justifications for Admission Other Justification + COVID INfection ARTI DELUCA III DO Jan 23, 2020 11:57
[2020-01-23] MEDS: guaiFENesin/CODEINE 100mg/10mg 5 ML LIQUID PO PRN ×3 (12:35→22:47)
[2020-01-23] MEDS: REMDESIVIR 100mg in NORMAL SALINE 250ML X 4 DAYS IV SCH (12:35)
[2020-01-23 15:05] VITALS: BP 165/80
--- NOTE | 2020-01-23 17:22 | NUR ---
SW following for discharge planning. Spoke with RN and reviewed chart. Pt from home. Pt on Remdesivir, day 3. Discharge plan remains home, self-care. Possible 6 min walk needed but not likely per Dr. Edwards. CAREY did add pt to the potential weekend discharge list incase home 02 setup needed. Addendum: 01/26/20 at 1052 by CAMACHO PATINO Pt discharged home, self-care on room air with no home 02 setup needed per chart review. No further SW needs at this time.
[2020-01-23] MEDS: cefTRIAXone IV Push 1 GM VIAL. IVP SCH (17:33)
[2020-01-23 19:00] VITALS: BP 178/83
[2020-01-23] MEDS: ZOLPIDEM 5 MG TABLET. PO PRN ×2 (21:11→21:33)
[2020-01-23] MEDS: FAMOTIDINE 20 MG TABLET. PO SCH (21:11)
[2020-01-23] MEDS: diphenhydrAMINE HCL 25 MG CAPSULE PO PRN (21:11)
[2020-01-23] MEDS: ATORVASTATIN CALCIUM 20 MG TABLET PO SCH (21:12)
[2020-01-23 23:00] VITALS: BP 104/74
[2020-01-24 04:39] LABS: BASO % 0 % (0-3); EOS % 0 % (0-3); HEMATOCRIT 32.5 % (36.0-47.0); LYMPH # 0.4 x10^3/uL (1.0-4.8); LYMPH % 7 % (24-48); MEAN CORPUSCULAR HEMOGLOBIN 29 pg (25-35); MEAN CORPUSCULAR HGB CONC 34 g/dL (31-37); MEAN CORPUSCULAR VOLUME 85 fL (79-100); MONO # 0.2 x10^3/uL (0.0-1.1); MONO % 4 % (0-9); NEUT # 5.2 x10^3/uL (1.8-7.7); NEUT % 89 % (31-73); PLATELET COUNT 133 x10^3/uL (140-400); RED BLOOD COUNT 3.81 x10^6/uL (3.50-5.40); RED CELL DISTRIBUTION WIDTH 13.9 % (11.5-14.5); WHITE BLOOD COUNT 5.8 x10^3/uL (4.0-11.0)
[2020-01-24 04:48] LABS: CALCIUM 8.8 mg/dL (8.5-10.1); CREATININE 0.8 mg/dL (0.6-1.0); GFR 74.7; POTASSIUM 4.4 mmol/L (3.5-5.1)
[2020-01-24] MEDS: guaiFENesin/CODEINE 100mg/10mg 5 ML LIQUID PO PRN ×3 (06:37→22:12)
[2020-01-24 07:00] VITALS: BP 149/82
[2020-01-24] MEDS: ASCORBIC ACID 1,000 MG TABLET PO SCH ×3 (08:52→20:40)
[2020-01-24] MEDS: MULTIVITAMIN with MINERAL TABLET. PO SCH (08:53)
[2020-01-24] MEDS: methylPREDNISolone SOD SUCC PF 40 MG/ML VIAL. IV SCH (08:53)
[2020-01-24] MEDS: LINAGLIPTIN 5 MG TABLET PO SCH (08:53)
[2020-01-24] MEDS: IPRATROPIUM/ALBUTEROL 20/100mcg/INH INHALER. INH SCH ×4 (08:53→20:00)
[2020-01-24] MEDS: GLIMEPIRIDE 2 MG TABLET. PO SCH ×2 (08:53→16:10)
[2020-01-24] MEDS: amLODIPine BESYLATE 5 MG TABLET PO SCH (08:53)
[2020-01-24] MEDS: BENZONATATE 100 MG CAPSULE. PO SCH ×3 (08:53→20:39)
[2020-01-24] MEDS: LACTOBACILLUS RHAMNOSUS GG 1 CAPSULE. PO SCH ×2 (08:53→20:40)
[2020-01-24] MEDS: ENOXAPARIN 40 MG/0.4 ML SYRINGE. SQ SCH ×2 (08:54→20:41)
[2020-01-24] MEDS: REMDESIVIR 100mg in NORMAL SALINE 250ML X 4 DAYS IV SCH (08:54)
[2020-01-24] MEDS: INSULIN LISPRO 300 UNITS/3 ML VIAL. SQ SCH ×4 (08:56→21:00)
--- NOTE | 2020-01-24 09:00 | PDOC ---
Infectious Disease Note Subjective: Subjective Patient feels much better on 2L O2 by NC at night on RA during the day cough is improving no f/n/v/d Vital Signs: Vital Signs Vital Signs Date Time Temp Pulse Resp B/P (MAP) Pulse Ox O2 Delivery O2 Flow Rate FiO2 01/24/20 08:53 88 149/82 01/24/20 07:00 96.3 20 92 Nasal Cannula 2.0 96.3 Physical Exam: PHYSICAL EXAM GENERAL: Alert and oriented x 3. Tired appearing female in no acute distress. HEENT: Normocephalic, atraumatic, anicteric. Oral mucosa moist. NECK: Supple. LUNGS: Decreased breath sounds at the bases. No wheezing. HEART: S1, S2. No gallops or murmurs. ABDOMEN: Soft, obese. Bowel sounds present, nontender, nondistended. EXTREMITIES: No edema, no cyanosis. DERMATOLOGIC: Warm, dry. No generalized rash. NEUROLOGIC: Alert and oriented x 3, grossly nonfocal. PSYCHIATRIC: Cooperative, appropriate mood and affect. Medications: Inpatient Meds: Current Medications Medications (Trade) Dose Ordered Sig/Jasper Start Time Stop Time Status Last Admin Dose Admin Acetaminophen (Tylenol) 650 mg PRN Q4HRS PRN 01/20/20 16:00 01/21/20 08:41 650 MG Albuterol/ Ipratropium (Combivent Respimat 20-100 Mcg) 1 puff RTQID 01/21/20 12:00 01/24/20 08:53 1 PUFF Amlodipine Besylate (Norvasc) 5 mg DAILY 01/21/20 09:00 01/24/20 08:53 5 MG Ascorbic Acid (Vitamin C) 3,000 mg TID 01/20/20 21:00 01/24/20 08:52 3,000 MG Atorvastatin Calcium (Lipitor) 20 mg HS 01/23/20 21:00 01/23/20 21:12 20 MG Azithromycin 500 mg/Sodium Chloride 250 ml @ 250 mls/hr Q24H 01/20/20 17:00 01/23/20 08:37 DC 01/22/20 15:43 250 MLS/HR Benzonatate (Tessalon Perle) 100 mg [id number] 01/21/20 14:00 01/24/20 08:53 100 MG Ceftriaxone Sodium (Rocephin) 1 gm Q24H 01/20/20 17:00 01/23/20 17:33 1 GM Dextrose (Dextrose 50%-Water Syringe) 12.5 gm PRN Q15MIN PRN 01/20/20 16:00 Diphenhydramine HCl (Benadryl) 50 mg PRN QHS PRN 01/20/20 16:30 01/23/20 21:11 50 MG Docusate Sodium (Colace) 100 mg PRN DAILY PRN 01/20/20 16:00 Enoxaparin Sodium (Lovenox 40mg Syringe) 40 mg BID 01/20/20 17:00 01/24/20 08:54 40 MG Famotidine (Pepcid Vial) 20 mg BID 01/21/20 12:00 01/22/20 10:49 DC 01/22/20 09:03 20 MG Famotidine (Pepcid) 20 mg QHS 01/22/20 21:00 01/23/20 21:11 20 MG Glimepiride (Amaryl) 4 mg BIDWMEALS 01/22/20 12:00 01/24/20 08:53 4 MG Guaifenesin (Robitussin Dm) 10 ml PRN Q6HRS PRN 01/21/20 11:00 01/23/20 08:58 10 ML Guaifenesin/ Codeine Phosphate (Robitussin Ac) 5 ml PRN Q4HRS PRN 01/23/20 10:30 01/24/20 06:37 5 ML Insulin Human Lispro (HumaLOG) 0-9 UNITS QIDACHS 01/23/20 21:00 01/24/20 08:56 9 UNITS Lactobacillus Rhamnosus (Culturelle) 1 cap BID 01/21/20 21:00 01/24/20 08:53 1 CAP Linagliptin (Tradjenta) 5 mg DAILY 01/22/20 12:00 01/24/20 08:53 5 MG Lubiprostone (Amitiza) 24 mcg BIDWMEALS 01/20/20 17:00 01/22/20 10:48 DC 01/21/20 16:04 24 MCG Methylprednisolone Sodium Succinate (SOLU-Medrol 40MG VIAL) 40 mg BID 01/21/20 09:00 01/24/20 08:53 40 MG Metoclopramide HCl (Reglan Vial) 10 mg 1X ONCE 01/20/20 15:00 01/20/20 15:01 DC 01/20/20 15:30 10 MG Morphine Sulfate (Morphine Sulfate) 2 mg PRN Q2HR PRN 01/20/20 04:00 01/21/20 03:59 DC Multivitamins (Thera M Plus) 1 tab DAILY 01/21/20 09:00 UNV Ondansetron HCl (Zofran) 4 mg PRN Q6HRS PRN 01/20/20 16:00 Oxycodone/ Acetaminophen (Percocet 5/325) 2 tab PRN Q4HRS PRN 01/20/20 16:00 Remdesivir 100 mg/ Sodium Chloride 230 ml @ 460 mls/hr Q24H 01/22/20 11:00 01/25/20 11:29 01/24/20 08:54 460 MLS/HR Remdesivir 200 mg/ Sodium Chloride 210 ml @ 210 mls/hr 1X ONCE 01/21/20 11:00 01/21/20 11:59 DC 01/21/20 11:15 210 MLS/HR Sennosides (Senna) 17.2 mg PRN BID PRN 01/20/20 16:00 Sodium Chloride 1,000 ml @ 100 mls/hr Q10H 01/20/20 16:00 01/21/20 11:54 DC 01/20/20 17:00 100 MLS/HR Thiamine HCl 100 mg/Dextrose 51 ml @ 102 mls/hr Q8HRS 01/20/20 22:00 01/23/20 06:01 DC 01/23/20 06:03 102 MLS/HR Zolpidem Tartrate (Ambien) 5 mg PRN QHS PRN 01/23/20 21:08 01/23/20 21:33 5 MG Labs: Lab Laboratory Tests Test 01/23/20 11:01 01/23/20 16:51 01/23/20 20:13 01/24/20 04:00 Glucose (Fingerstick) 469 mg/dL (70-99) 324 mg/dL (70-99) 420 mg/dL (70-99) White Blood Count 5.8 x10^3/uL (4.0-11.0) Red Blood Count 3.81 x10^6/uL (3.50-5.40) Hemoglobin 11.0 g/dL (12.0-15.5) Hematocrit 32.5 % (36.0-47.0) Mean Corpuscular Volume 85 fL (79-100) Mean Corpuscular Hemoglobin 29 pg (25-35) Mean Corpuscular Hemoglobin Concent 34 g/dL (31-37) Red Cell Distribution Width 13.9 % (11.5-14.5) Platelet Count 133 x10^3/uL (140-400) Neutrophils (%) (Auto) 89 % (31-73) Lymphocytes (%) (Auto) 7 % (24-48) Monocytes (%) (Auto) 4 % (0-9) Eosinophils (%) (Auto) 0 % (0-3) Basophils (%) (Auto) 0 % (0-3) Neutrophils # (Auto) 5.2 x10^3/uL (1.8-7.7) Lymphocytes # (Auto) 0.4 x10^3/uL (1.0-4.8) Monocytes # (Auto) 0.2 x10^3/uL (0.0-1.1) Eosinophils # (Auto) 0.0 x10^3/uL (0.0-0.7) Basophils # (Auto) 0.0 x10^3/uL (0.0-0.2) Sodium Level 135 mmol/L (136-145) Potassium Level 4.4 mmol/L (3.5-5.1) Chloride Level 101 mmol/L (98-107) Carbon Dioxide Level 26 mmol/L (21-32) Anion Gap 8 (6-14) Blood Urea Nitrogen 24 mg/dL (7-20) Creatinine 0.8 mg/dL (0.6-1.0) Estimated GFR (Cockcroft-Gault) 74.7 Glucose Level 354 mg/dL (70-99) Calcium Level 8.8 mg/dL (8.5-10.1) Test 01/24/20 08:07 Glucose (Fingerstick) 339 mg/dL (70-99) Objective: Assessment: 1. COVID-19 infection. 2. Febrile illness POA from above.resolved 3. . Acute hypoxic respiratory failure. 4. Generalized myalgia.improving 5. Nausea and vomiting, resolved 6. Diabetes. 7. Lymphopenia.resolved 8. Thrombocytopenia 9. Hyponatremia Plan: Plan of Care 1. Continue supportive treatment. 2. Continue remdesivir 01/20. 3. Continue steroids Discussed with HUMZA BELTRAN MD Jan 24, 2020 09:00
--- NOTE | 2020-01-24 09:36 | PDOC ---
PULMONARY PROGRESS NOTES DATE: 01/24/20 TIME: 09:35 Subjective on ra sob better, no cough Vitals Vital Signs Date Time Temp Pulse Resp B/P (MAP) Pulse Ox O2 Delivery O2 Flow Rate FiO2 01/24/20 08:53 88 149/82 01/24/20 07:00 96.3 20 92 Nasal Cannula 2.0 96.3 Comments Patient seen doing the pandemic, visual inspection no respiratory distress no paroxysmal breathing pattern no increasing edema no skin rash rrr Labs Laboratory Tests Test 01/22/20 11:25 01/22/20 16:43 01/22/20 21:09 01/22/20 23:45 Glucose (Fingerstick) 358 mg/dL (70-99) 433 mg/dL (70-99) 424 mg/dL (70-99) 381 mg/dL (70-99) Test 01/23/20 04:00 01/23/20 08:40 01/23/20 11:01 01/23/20 16:51 White Blood Count 6.0 x10^3/uL (4.0-11.0) Red Blood Count 3.84 x10^6/uL (3.50-5.40) Hemoglobin 11.1 g/dL (12.0-15.5) Hematocrit 33.2 % (36.0-47.0) Mean Corpuscular Volume 86 fL (79-100) Mean Corpuscular Hemoglobin 29 pg (25-35) Mean Corpuscular Hemoglobin Concent 33 g/dL (31-37) Red Cell Distribution Width 14.1 % (11.5-14.5) Platelet Count 125 x10^3/uL (140-400) Neutrophils (%) (Auto) 89 % (31-73) Lymphocytes (%) (Auto) 7 % (24-48) Monocytes (%) (Auto) 4 % (0-9) Eosinophils (%) (Auto) 0 % (0-3) Basophils (%) (Auto) 0 % (0-3) Neutrophils # (Auto) 5.4 x10^3/uL (1.8-7.7) Lymphocytes # (Auto) 0.4 x10^3/uL (1.0-4.8) Monocytes # (Auto) 0.2 x10^3/uL (0.0-1.1) Eosinophils # (Auto) 0.0 x10^3/uL (0.0-0.7) Basophils # (Auto) 0.0 x10^3/uL (0.0-0.2) Sodium Level 136 mmol/L (136-145) Potassium Level 4.5 mmol/L (3.5-5.1) Chloride Level 99 mmol/L (98-107) Carbon Dioxide Level 24 mmol/L (21-32) Anion Gap 13 (6-14) Blood Urea Nitrogen 27 mg/dL (7-20) Creatinine 0.9 mg/dL (0.6-1.0) Estimated GFR (Cockcroft-Gault) 65.2 Glucose Level 353 mg/dL (70-99) Calcium Level 8.6 mg/dL (8.5-10.1) Total Bilirubin 0.4 mg/dL (0.2-1.0) Direct Bilirubin 0.1 mg/dL (0.0-0.2) Aspartate Amino Transf (AST/SGOT) 29 U/L (15-37) Alanine Aminotransferase (ALT/SGPT) 50 U/L (14-59) Alkaline Phosphatase 151 U/L (46-116) Total Protein 6.4 g/dL (6.4-8.2) Albumin 2.9 g/dL (3.4-5.0) Glucose (Fingerstick) 422 mg/dL (70-99) 469 mg/dL (70-99) 324 mg/dL (70-99) Test 01/23/20 20:13 01/24/20 04:00 01/24/20 08:07 Glucose (Fingerstick) 420 mg/dL (70-99) 339 mg/dL (70-99) White Blood Count 5.8 x10^3/uL (4.0-11.0) Red Blood Count 3.81 x10^6/uL (3.50-5.40) Hemoglobin 11.0 g/dL (12.0-15.5) Hematocrit 32.5 % (36.0-47.0) Mean Corpuscular Volume 85 fL (79-100) Mean Corpuscular Hemoglobin 29 pg (25-35) Mean Corpuscular Hemoglobin Concent 34 g/dL (31-37) Red Cell Distribution Width 13.9 % (11.5-14.5) Platelet Count 133 x10^3/uL (140-400) Neutrophils (%) (Auto) 89 % (31-73) Lymphocytes (%) (Auto) 7 % (24-48) Monocytes (%) (Auto) 4 % (0-9) Eosinophils (%) (Auto) 0 % (0-3) Basophils (%) (Auto) 0 % (0-3) Neutrophils # (Auto) 5.2 x10^3/uL (1.8-7.7) Lymphocytes # (Auto) 0.4 x10^3/uL (1.0-4.8) Monocytes # (Auto) 0.2 x10^3/uL (0.0-1.1) Eosinophils # (Auto) 0.0 x10^3/uL (0.0-0.7) Basophils # (Auto) 0.0 x10^3/uL (0.0-0.2) Sodium Level 135 mmol/L (136-145) Potassium Level 4.4 mmol/L (3.5-5.1) Chloride Level 101 mmol/L (98-107) Carbon Dioxide Level 26 mmol/L (21-32) Anion Gap 8 (6-14) Blood Urea Nitrogen 24 mg/dL (7-20) Creatinine 0.8 mg/dL (0.6-1.0) Estimated GFR (Cockcroft-Gault) 74.7 Glucose Level 354 mg/dL (70-99) Calcium Level 8.8 mg/dL (8.5-10.1) Laboratory Tests Test 01/23/20 11:01 01/23/20 16:51 01/23/20 20:13 01/24/20 04:00 Glucose (Fingerstick) 469 mg/dL (70-99) 324 mg/dL (70-99) 420 mg/dL (70-99) White Blood Count 5.8 x10^3/uL (4.0-11.0) Red Blood Count 3.81 x10^6/uL (3.50-5.40) Hemoglobin 11.0 g/dL (12.0-15.5) Hematocrit 32.5 % (36.0-47.0) Mean Corpuscular Volume 85 fL (79-100) Mean Corpuscular Hemoglobin 29 pg (25-35) Mean Corpuscular Hemoglobin Concent 34 g/dL (31-37) Red Cell Distribution Width 13.9 % (11.5-14.5) Platelet Count 133 x10^3/uL (140-400) Neutrophils (%) (Auto) 89 % (31-73) Lymphocytes (%) (Auto) 7 % (24-48) Monocytes (%) (Auto) 4 % (0-9) Eosinophils (%) (Auto) 0 % (0-3) Basophils (%) (Auto) 0 % (0-3) Neutrophils # (Auto) 5.2 x10^3/uL (1.8-7.7) Lymphocytes # (Auto) 0.4 x10^3/uL (1.0-4.8) Monocytes # (Auto) 0.2 x10^3/uL (0.0-1.1) Eosinophils # (Auto) 0.0 x10^3/uL (0.0-0.7) Basophils # (Auto) 0.0 x10^3/uL (0.0-0.2) Sodium Level 135 mmol/L (136-145) Potassium Level 4.4 mmol/L (3.5-5.1) Chloride Level 101 mmol/L (98-107) Carbon Dioxide Level 26 mmol/L (21-32) Anion Gap 8 (6-14) Blood Urea Nitrogen 24 mg/dL (7-20) Creatinine 0.8 mg/dL (0.6-1.0) Estimated GFR (Cockcroft-Gault) 74.7 Glucose Level 354 mg/dL (70-99) Calcium Level 8.8 mg/dL (8.5-10.1) Test 01/24/20 08:07 Glucose (Fingerstick) 339 mg/dL (70-99) Medications Active Scripts Medications Dose Route/Sig Max Daily Dose Days Date Category Multivitamins (Multivitamin) 1 Each Tablet 1 Tab PO DAILY 04/13/18 Reported Linzess (Linaclotide) 145 Mcg Capsule 145 Mcg PO DAILY07 04/13/18 Reported Aldactone (Spironolactone) 25 Mg Tablet 1 Tab PO DAILY 04/13/18 Reported Diphenhydramine Hcl 50 Mg Capsule 1 Cap PO QHS PRN 04/13/18 Reported Folbic Rf Tablet (B12/Levomefolate Calcium/B-6) 1 Each Tablet 1 Each PO 12/03/17 Reported Amlodipine Besylate 5 Mg Tablet 5 Mg PO DAILY 12/03/17 Reported Ambien (Zolpidem Tartrate) 10 Mg Tablet 1 Tab PO QHS PRN 02/03/16 Reported Glimepiride 2 Mg Tablet 4 Mg PO BID 02/02/16 Reported Lipitor (Atorvastatin Calcium) 20 Mg Tablet 1 Tab PO DAILY 02/02/16 Reported Januvia (Sitagliptin Phosphate) 100 Mg Tablet 1 Tab PO DAILY 02/02/16 Reported Impression . IMPRESSION: 1. Acute hypoxemic respiratory failure secondary to COVID-19 viral pneumonia. 2. COVID-19 viral pneumonia. 3. Nausea and vomiting. 4. Lymphopenia. 5. Thrombocytopenia. 6. Obesity. Plan . Continue current support, may need 6-minute walk prior to discharge Continue 5-day course of remdesivir, Antibiotics fot total of 5 days Oxygen supplementation Steroids DVT prophylaxis Up to chair ok to dc from pulm standpoint CHRISTINA BENTLEY MD Jan 24, 2020 09:36
[2020-01-24 11:00] VITALS: BP 172/87
--- NOTE | 2020-01-24 12:14 | PDOC ---
[employer] PROGRESS NOTE Date of Service DOS: DATE: 01/24/20 TIME: 12:12 Chief Complaint Chief Complaint Respiratory failure COVID-19 Abnormal abdominal ultrasound with gallstone and hepatosteatosis and gallbladder polyp Acute generalized malaise due to COVID-19 infection Intractable nausea vomiting Thrombocytopenia Lymphopenia Overweight History of the following; Diabetes-Type II, High Cholesterol, Hypertension, Insomnia Hysterectomy, Tonsillectomy, L knee, RIGHT SHOULDER, myomectomy History of Present Illness History of Present Illness 01/24/2020 Patient seen and examined on the [place] [address] unit She continues to improve States the codeine cough syrup is helping a lot Discussed with RN Chart reviewed I also called the pharmacy and stopped her Solu-Medrol and changed her to a Medrol Dosepak 01/23/2020 Patient seen and examined on the [place] [address] unit She is feeling better again today but not as good as yesterday Discussed with case management Discussed with infectious disease Chart reviewed 01/22/2020 Patient seen and examined on the [place] [address] unit She is feeling a little better today Discussed with shank threader Discussed with RN Discussed with case management Chart reviewed I called the pharmacy to discuss her medications 01/21/2020 Patient seen and examined on the [place] [address] floor She is on oxygen per nasal cannula Appears quite weak Chart reviewed Discussed with RN at length Discussed with case management I went ahead and ordered pulmonary GI and infectious disease consults Also add in steroids and vitamins and spoke with the pharmacy Also added in Combivent metered-dose inhaler Vitals/I&O Vitals/I&O: Vital Signs Date Time Temp Pulse Resp B/P (MAP) Pulse Ox O2 Delivery O2 Flow Rate FiO2 01/24/20 08:53 88 149/82 01/24/20 08:00 Room Air 01/24/20 07:00 96.3 20 92 2.0 96.3 I & O 01/23/20 01/23/20 01/24/20 15:00 23:00 07:00 Intake Total 250 ml Balance 250 ml Physical Exam Physical Exam: GENERAL: Alert and oriented x 3. Tired appearing female in no acute distress. HEENT: Normocephalic, atraumatic, anicteric. Oral mucosa moist. NECK: Supple. LUNGS: Decreased breath sounds at the bases. No wheezing. HEART: S1, S2. No gallops or murmurs. ABDOMEN: Soft, obese. Bowel sounds present, nontender, nondistended. EXTREMITIES: No edema, no cyanosis. DERMATOLOGIC: Warm, dry. No generalized rash. NEUROLOGIC: Alert and oriented x 3, grossly nonfocal. PSYCHIATRIC: Cooperative, appropriate mood and affect. General: Alert, Oriented X3, mild distress Heart: Regular rate, No murmurs Abdomen: Normal bowel sounds Extremities: No clubbing, No cyanosis Skin: No rashes Labs Labs: Laboratory Tests Test 01/23/20 16:51 01/23/20 20:13 01/24/20 04:00 01/24/20 08:07 Glucose (Fingerstick) 324 mg/dL (70-99) 420 mg/dL (70-99) 339 mg/dL (70-99) White Blood Count 5.8 x10^3/uL (4.0-11.0) Red Blood Count 3.81 x10^6/uL (3.50-5.40) Hemoglobin 11.0 g/dL (12.0-15.5) Hematocrit 32.5 % (36.0-47.0) Mean Corpuscular Volume 85 fL (79-100) Mean Corpuscular Hemoglobin 29 pg (25-35) Mean Corpuscular Hemoglobin Concent 34 g/dL (31-37) Red Cell Distribution Width 13.9 % (11.5-14.5) Platelet Count 133 x10^3/uL (140-400) Neutrophils (%) (Auto) 89 % (31-73) Lymphocytes (%) (Auto) 7 % (24-48) Monocytes (%) (Auto) 4 % (0-9) Eosinophils (%) (Auto) 0 % (0-3) Basophils (%) (Auto) 0 % (0-3) Neutrophils # (Auto) 5.2 x10^3/uL (1.8-7.7) Lymphocytes # (Auto) 0.4 x10^3/uL (1.0-4.8) Monocytes # (Auto) 0.2 x10^3/uL (0.0-1.1) Eosinophils # (Auto) 0.0 x10^3/uL (0.0-0.7) Basophils # (Auto) 0.0 x10^3/uL (0.0-0.2) Sodium Level 135 mmol/L (136-145) Potassium Level 4.4 mmol/L (3.5-5.1) Chloride Level 101 mmol/L (98-107) Carbon Dioxide Level 26 mmol/L (21-32) Anion Gap 8 (6-14) Blood Urea Nitrogen 24 mg/dL (7-20) Creatinine 0.8 mg/dL (0.6-1.0) Estimated GFR (Cockcroft-Gault) 74.7 Glucose Level 354 mg/dL (70-99) Calcium Level 8.8 mg/dL (8.5-10.1) Test 01/24/20 11:59 Glucose (Fingerstick) 420 mg/dL (70-99) Assessment and Plan Assessmemt and Plan Problems Medical Problems: (1) COVID-19 virus infection Status: Acute (2) Dehydration Status: Acute (3) Hyperglycemia Status: Acute (4) Nausea & vomiting Status: Acute Respiratory failure COVID-19 Abnormal abdominal ultrasound with gallstone and hepatosteatosis and gallbladder polyp Acute generalized malaise due to COVID-19 infection Intractable nausea vomiting Thrombocytopenia Lymphopenia Overweight History of the following; Diabetes-Type II, High Cholesterol, Hypertension, Insomnia Hysterectomy, Tonsillectomy, L knee, RIGHT SHOULDER, myomectomy Plan IV Rocephin IV azithromycin DC IV Solu-Medrol and start Medrol Dosepak to assist with glycemic control (I have given her several large doses of NovoLog her sugars just will not come down) Multiple vitamin with minerals Combivent metered-dose inhaler O2 per nasal cannula We are doing a 5-day course of remdesivir Appreciate GI pulmonary and infectious disease input Home meds Sliding scale insulin We are resuming her home p.o. diabetic meds and I talked with pharmacy about this DVT prophylaxis Full code Trend labs Prognosis guarded but now improving quite a bit she looks much better over the past 48 hours We plan to discharge in the morning on p.o. antibiotics Medrol Dosepak and a Z- Alessandro vitamins etc. Comment Review of Relevant I have reviewed the following items bora (where applicable) has been applied. Medications: Current Medications Medications (Trade) Dose Ordered Sig/Jasper Route PRN Reason Start Time Stop Time Status Last Admin Dose Admin Atorvastatin Calcium (Lipitor) 20 mg HS PO 01/23/20 21:00 01/23/20 21:12 Insulin Human Lispro (HumaLOG) 0-9 UNITS QIDACHS SQ 01/23/20 21:00 01/24/20 12:09 Zolpidem Tartrate (Ambien) 5 mg PRN QHS PRN PO INSOMNIA, MAY REPEAT X1 01/23/20 21:08 01/23/20 21:33 Justifications for Admission Other Justification + COVID INfection ARTI DELUCA III DO Jan 24, 2020 12:14
[2020-01-24] MEDS: methylPREDNISolone 4 MG TABLET. PO SCH ×4 (13:00→20:39)
[2020-01-24 15:00] VITALS: BP 169/75
[2020-01-24] MEDS: cefTRIAXone IV Push 1 GM VIAL. IVP SCH (16:10)
[2020-01-24] MEDS ORDERED: INSULIN LISPRO 300 UNITS/3 ML VIAL. SQ ONE ×2 (17:30→22:30)
[2020-01-24 19:56] VITALS: BP 151/78
[2020-01-24] MEDS: FAMOTIDINE 20 MG TABLET. PO SCH (20:39)
[2020-01-24] MEDS: ATORVASTATIN CALCIUM 20 MG TABLET PO SCH (20:41)
[2020-01-24] MEDS: guaiFENesin DM 200MG/20MG 10 ML SYRUP PO PRN (21:25)
[2020-01-24] MEDS: ACETAMINOPHEN 325 MG TABLET. PO PRN (21:26)
[2020-01-24] MEDS: ZOLPIDEM 5 MG TABLET. PO PRN (21:26)
[2020-01-24] MEDS: diphenhydrAMINE HCL 25 MG CAPSULE PO PRN (21:26)
[2020-01-24] MEDS ORDERED: ZOLPIDEM 5 MG TABLET. PO ONE (22:30)
[2020-01-24 23:31] VITALS: BP 159/83
[2020-01-25 04:30] LABS: BASO % 0 % (0-3); EOS % 0 % (0-3); HEMATOCRIT 32.3 % (36.0-47.0); HEMOGLOBIN 11.2 g/dL (12.0-15.5); LYMPH # 0.7 x10^3/uL (1.0-4.8); LYMPH % 10 % (24-48); MEAN CORPUSCULAR HEMOGLOBIN 29 pg (25-35); MEAN CORPUSCULAR HGB CONC 35 g/dL (31-37); MEAN CORPUSCULAR VOLUME 84 fL (79-100); MONO # 0.6 x10^3/uL (0.0-1.1); MONO % 8 % (0-9); NEUT # 6.1 x10^3/uL (1.8-7.7); NEUT % 82 % (31-73); PLATELET COUNT 143 x10^3/uL (140-400); RED BLOOD COUNT 3.82 x10^6/uL (3.50-5.40); RED CELL DISTRIBUTION WIDTH 14.2 % (11.5-14.5); WHITE BLOOD COUNT 7.5 x10^3/uL (4.0-11.0)
[2020-01-25 04:51] LABS: CALCIUM 8.6 mg/dL (8.5-10.1); CREATININE 0.9 mg/dL (0.6-1.0); GFR 65.2; POTASSIUM 3.6 mmol/L (3.5-5.1)
[2020-01-25 07:59] VITALS: BP 150/77
[2020-01-25] MEDS: ENOXAPARIN 40 MG/0.4 ML SYRINGE. SQ SCH (08:32)
[2020-01-25] MEDS: GLIMEPIRIDE 2 MG TABLET. PO SCH (08:32)
[2020-01-25] MEDS: ASCORBIC ACID 1,000 MG TABLET PO SCH (08:32)
[2020-01-25] MEDS: LINAGLIPTIN 5 MG TABLET PO SCH (08:32)
[2020-01-25] MEDS: MULTIVITAMIN with MINERAL TABLET. PO SCH (08:32)
[2020-01-25] MEDS: BENZONATATE 100 MG CAPSULE. PO SCH (08:33)
[2020-01-25] MEDS: LACTOBACILLUS RHAMNOSUS GG 1 CAPSULE. PO SCH (08:33)
[2020-01-25] MEDS: methylPREDNISolone 4 MG TABLET. PO SCH ×2 (08:33→11:43)
[2020-01-25] MEDS: IPRATROPIUM/ALBUTEROL 20/100mcg/INH INHALER. INH SCH ×2 (08:33→11:42)
[2020-01-25] MEDS: INSULIN LISPRO 300 UNITS/3 ML VIAL. SQ SCH ×2 (08:34→11:43)
--- NOTE | 2020-01-25 09:03 | PDOC ---
Infectious Disease Note Subjective: Subjective Patient feels much better Remains on room air Cough is improving Denies fever, nausea, vomiting, worsening shortness of breath, diarrhea, abdominal pain, rash Otherwise as above Vital Signs: Vital Signs Vital Signs Date Time Temp Pulse Resp B/P (MAP) Pulse Ox O2 Delivery O2 Flow Rate FiO2 01/25/20 03:38 Nasal Cannula 2.0 01/24/20 23:31 97.6 87 20 159/83 (108) 97.6 01/24/20 15:00 94 Physical Exam: PHYSICAL EXAM GENERAL: Alert and oriented x 3. Tired appearing female in no acute distress. HEENT: Normocephalic, atraumatic, anicteric. Oral mucosa moist. NECK: Supple. LUNGS: Decreased breath sounds at the bases. No wheezing. HEART: S1, S2. No gallops or murmurs. ABDOMEN: Soft, obese. Bowel sounds present, nontender, nondistended. EXTREMITIES: No edema, no cyanosis. DERMATOLOGIC: Warm, dry. No generalized rash. NEUROLOGIC: Alert and oriented x 3, grossly nonfocal. PSYCHIATRIC: Cooperative, appropriate mood and affect. Medications: Inpatient Meds: Current Medications Medications (Trade) Dose Ordered Sig/Jasper Start Time Stop Time Status Last Admin Dose Admin Acetaminophen (Tylenol) 650 mg PRN Q4HRS PRN 01/20/20 16:00 01/24/20 21:26 650 MG Albuterol/ Ipratropium (Combivent Respimat 20-100 Mcg) 1 puff RTQID 01/21/20 12:00 01/25/20 08:33 1 PUFF Amlodipine Besylate (Norvasc) 5 mg DAILY 01/21/20 09:00 01/24/20 08:53 5 MG Ascorbic Acid (Vitamin C) 3,000 mg TID 01/20/20 21:00 01/25/20 08:32 3,000 MG Atorvastatin Calcium (Lipitor) 20 mg HS 01/23/20 21:00 01/24/20 20:41 20 MG Azithromycin 500 mg/Sodium Chloride 250 ml @ 250 mls/hr Q24H 01/20/20 17:00 01/23/20 08:37 DC 01/22/20 15:43 250 MLS/HR Benzonatate (Tessalon Perle) 100 mg [id number] 01/21/20 14:00 01/25/20 08:33 100 MG Ceftriaxone Sodium (Rocephin) 1 gm Q24H 01/20/20 17:00 01/24/20 16:10 1 GM Dextrose (Dextrose 50%-Water Syringe) 12.5 gm PRN Q15MIN PRN 01/20/20 16:00 Diphenhydramine HCl (Benadryl) 50 mg PRN QHS PRN 01/20/20 16:30 01/24/20 21:26 50 MG Docusate Sodium (Colace) 100 mg PRN DAILY PRN 01/20/20 16:00 Enoxaparin Sodium (Lovenox 40mg Syringe) 40 mg BID 01/20/20 17:00 01/25/20 08:32 40 MG Famotidine (Pepcid Vial) 20 mg BID 01/21/20 12:00 01/22/20 10:49 DC 01/22/20 09:03 20 MG Famotidine (Pepcid) 20 mg QHS 01/22/20 21:00 01/24/20 20:39 20 MG Glimepiride (Amaryl) 4 mg BIDWMEALS 01/22/20 12:00 01/25/20 08:32 4 MG Guaifenesin (Robitussin Dm) 10 ml PRN Q6HRS PRN 01/21/20 11:00 01/24/20 21:25 10 ML Guaifenesin/ Codeine Phosphate (Robitussin Ac) 5 ml PRN Q4HRS PRN 01/23/20 10:30 01/24/20 22:12 5 ML Insulin Human Lispro (HumaLOG) 40 units 1X ONCE 01/24/20 22:30 01/24/20 22:31 DC 01/24/20 22:13 40 UNITS Lactobacillus Rhamnosus (Culturelle) 1 cap BID 01/21/20 21:00 01/25/20 08:33 1 CAP Linagliptin (Tradjenta) 5 mg DAILY 01/22/20 12:00 01/25/20 08:32 5 MG Lubiprostone (Amitiza) 24 mcg BIDWMEALS 01/20/20 17:00 01/22/20 10:48 DC 01/21/20 16:04 24 MCG Methylprednisolone (Medrol) 4 mg DAILY 01/29/20 09:00 01/29/20 09:01 Methylprednisolone Sodium Succinate (SOLU-Medrol 40MG VIAL) 40 mg BID 01/21/20 09:00 01/24/20 12:13 DC 01/24/20 08:53 40 MG Metoclopramide HCl (Reglan Vial) 10 mg 1X ONCE 01/20/20 15:00 01/20/20 15:01 DC 01/20/20 15:30 10 MG Morphine Sulfate (Morphine Sulfate) 2 mg PRN Q2HR PRN 01/20/20 04:00 01/21/20 03:59 DC Multivitamins (Thera M Plus) 1 tab DAILY 01/21/20 09:00 UNV Ondansetron HCl (Zofran) 4 mg PRN Q6HRS PRN 01/20/20 16:00 Oxycodone/ Acetaminophen (Percocet 5/325) 2 tab PRN Q4HRS PRN 01/20/20 16:00 Remdesivir 100 mg/ Sodium Chloride 230 ml @ 460 mls/hr Q24H 01/22/20 11:00 01/25/20 11:29 01/24/20 08:54 460 MLS/HR Remdesivir 200 mg/ Sodium Chloride 210 ml @ 210 mls/hr 1X ONCE 01/21/20 11:00 01/21/20 11:59 DC 01/21/20 11:15 210 MLS/HR Sennosides (Senna) 17.2 mg PRN BID PRN 01/20/20 16:00 Sodium Chloride 1,000 ml @ 100 mls/hr Q10H 01/20/20 16:00 01/21/20 11:54 DC 01/20/20 17:00 100 MLS/HR Thiamine HCl 100 mg/Dextrose 51 ml @ 102 mls/hr Q8HRS 01/20/20 22:00 01/23/20 06:01 DC 01/23/20 06:03 102 MLS/HR Zolpidem Tartrate (Ambien) 5 mg 1X ONCE 01/24/20 22:30 01/24/20 22:31 DC 01/24/20 22:12 5 MG Labs: Lab Laboratory Tests Test 01/24/20 11:59 01/24/20 17:06 01/24/20 21:09 01/25/20 04:00 Glucose (Fingerstick) 420 mg/dL (70-99) 465 mg/dL (70-99) 468 mg/dL (70-99) White Blood Count 7.5 x10^3/uL (4.0-11.0) Red Blood Count 3.82 x10^6/uL (3.50-5.40) Hemoglobin 11.2 g/dL (12.0-15.5) Hematocrit 32.3 % (36.0-47.0) Mean Corpuscular Volume 84 fL (79-100) Mean Corpuscular Hemoglobin 29 pg (25-35) Mean Corpuscular Hemoglobin Concent 35 g/dL (31-37) Red Cell Distribution Width 14.2 % (11.5-14.5) Platelet Count 143 x10^3/uL (140-400) Neutrophils (%) (Auto) 82 % (31-73) Lymphocytes (%) (Auto) 10 % (24-48) Monocytes (%) (Auto) 8 % (0-9) Eosinophils (%) (Auto) 0 % (0-3) Basophils (%) (Auto) 0 % (0-3) Neutrophils # (Auto) 6.1 x10^3/uL (1.8-7.7) Lymphocytes # (Auto) 0.7 x10^3/uL (1.0-4.8) Monocytes # (Auto) 0.6 x10^3/uL (0.0-1.1) Eosinophils # (Auto) 0.0 x10^3/uL (0.0-0.7) Basophils # (Auto) 0.0 x10^3/uL (0.0-0.2) Sodium Level 137 mmol/L (136-145) Potassium Level 3.6 mmol/L (3.5-5.1) Chloride Level 103 mmol/L (98-107) Carbon Dioxide Level 28 mmol/L (21-32) Anion Gap 6 (6-14) Blood Urea Nitrogen 23 mg/dL (7-20) Creatinine 0.9 mg/dL (0.6-1.0) Estimated GFR (Cockcroft-Gault) 65.2 Glucose Level 245 mg/dL (70-99) Calcium Level 8.6 mg/dL (8.5-10.1) Test 01/25/20 07:38 Glucose (Fingerstick) 216 mg/dL (70-99) Objective: Assessment: 1. COVID-19 infection. 2. Febrile illness POA from above.resolved 3. . Acute hypoxic respiratory failure. 4. Generalized myalgia.improving 5. Nausea and vomiting, resolved 6. Diabetes. 7. Lymphopenia.resolved 8. Thrombocytopenia 9. Hyponatremia Plan: Plan of Care 1. Continue supportive treatment. 2. Continue remdesivir last dose today 3. Continue steroids Okay to HI home from ID standpoint Discussed with HUMZA BELTRAN MD Jan 25, 2020 09:03
[2020-01-25 09:24] VITALS: BP 150/77
[2020-01-25] MEDS: amLODIPine BESYLATE 5 MG TABLET PO SCH (09:24)
--- NOTE | 2020-01-25 09:34 | PDOC ---
PULMONARY PROGRESS NOTES DATE: 01/25/20 TIME: 09:33 Subjective on ra sob better, has cough Vitals Vital Signs Date Time Temp Pulse Resp B/P (MAP) Pulse Ox O2 Delivery O2 Flow Rate FiO2 01/25/20 09:24 89 150/77 01/25/20 03:38 Nasal Cannula 2.0 01/24/20 23:31 97.6 20 97.6 01/24/20 15:00 94 Comments Patient seen doing the pandemic, visual inspection no respiratory distress no paroxysmal breathing pattern no increasing edema no skin rash rrr Labs Laboratory Tests Test 01/23/20 11:01 01/23/20 16:51 01/23/20 20:13 01/24/20 04:00 Glucose (Fingerstick) 469 mg/dL (70-99) 324 mg/dL (70-99) 420 mg/dL (70-99) White Blood Count 5.8 x10^3/uL (4.0-11.0) Red Blood Count 3.81 x10^6/uL (3.50-5.40) Hemoglobin 11.0 g/dL (12.0-15.5) Hematocrit 32.5 % (36.0-47.0) Mean Corpuscular Volume 85 fL (79-100) Mean Corpuscular Hemoglobin 29 pg (25-35) Mean Corpuscular Hemoglobin Concent 34 g/dL (31-37) Red Cell Distribution Width 13.9 % (11.5-14.5) Platelet Count 133 x10^3/uL (140-400) Neutrophils (%) (Auto) 89 % (31-73) Lymphocytes (%) (Auto) 7 % (24-48) Monocytes (%) (Auto) 4 % (0-9) Eosinophils (%) (Auto) 0 % (0-3) Basophils (%) (Auto) 0 % (0-3) Neutrophils # (Auto) 5.2 x10^3/uL (1.8-7.7) Lymphocytes # (Auto) 0.4 x10^3/uL (1.0-4.8) Monocytes # (Auto) 0.2 x10^3/uL (0.0-1.1) Eosinophils # (Auto) 0.0 x10^3/uL (0.0-0.7) Basophils # (Auto) 0.0 x10^3/uL (0.0-0.2) Sodium Level 135 mmol/L (136-145) Potassium Level 4.4 mmol/L (3.5-5.1) Chloride Level 101 mmol/L (98-107) Carbon Dioxide Level 26 mmol/L (21-32) Anion Gap 8 (6-14) Blood Urea Nitrogen 24 mg/dL (7-20) Creatinine 0.8 mg/dL (0.6-1.0) Estimated GFR (Cockcroft-Gault) 74.7 Glucose Level 354 mg/dL (70-99) Calcium Level 8.8 mg/dL (8.5-10.1) Test 01/24/20 08:07 01/24/20 11:59 01/24/20 17:06 01/24/20 21:09 Glucose (Fingerstick) 339 mg/dL (70-99) 420 mg/dL (70-99) 465 mg/dL (70-99) 468 mg/dL (70-99) Test 01/25/20 04:00 01/25/20 07:38 White Blood Count 7.5 x10^3/uL (4.0-11.0) Red Blood Count 3.82 x10^6/uL (3.50-5.40) Hemoglobin 11.2 g/dL (12.0-15.5) Hematocrit 32.3 % (36.0-47.0) Mean Corpuscular Volume 84 fL (79-100) Mean Corpuscular Hemoglobin 29 pg (25-35) Mean Corpuscular Hemoglobin Concent 35 g/dL (31-37) Red Cell Distribution Width 14.2 % (11.5-14.5) Platelet Count 143 x10^3/uL (140-400) Neutrophils (%) (Auto) 82 % (31-73) Lymphocytes (%) (Auto) 10 % (24-48) Monocytes (%) (Auto) 8 % (0-9) Eosinophils (%) (Auto) 0 % (0-3) Basophils (%) (Auto) 0 % (0-3) Neutrophils # (Auto) 6.1 x10^3/uL (1.8-7.7) Lymphocytes # (Auto) 0.7 x10^3/uL (1.0-4.8) Monocytes # (Auto) 0.6 x10^3/uL (0.0-1.1) Eosinophils # (Auto) 0.0 x10^3/uL (0.0-0.7) Basophils # (Auto) 0.0 x10^3/uL (0.0-0.2) Sodium Level 137 mmol/L (136-145) Potassium Level 3.6 mmol/L (3.5-5.1) Chloride Level 103 mmol/L (98-107) Carbon Dioxide Level 28 mmol/L (21-32) Anion Gap 6 (6-14) Blood Urea Nitrogen 23 mg/dL (7-20) Creatinine 0.9 mg/dL (0.6-1.0) Estimated GFR (Cockcroft-Gault) 65.2 Glucose Level 245 mg/dL (70-99) Calcium Level 8.6 mg/dL (8.5-10.1) Glucose (Fingerstick) 216 mg/dL (70-99) Laboratory Tests Test 01/24/20 11:59 01/24/20 17:06 01/24/20 21:09 01/25/20 04:00 Glucose (Fingerstick) 420 mg/dL (70-99) 465 mg/dL (70-99) 468 mg/dL (70-99) White Blood Count 7.5 x10^3/uL (4.0-11.0) Red Blood Count 3.82 x10^6/uL (3.50-5.40) Hemoglobin 11.2 g/dL (12.0-15.5) Hematocrit 32.3 % (36.0-47.0) Mean Corpuscular Volume 84 fL (79-100) Mean Corpuscular Hemoglobin 29 pg (25-35) Mean Corpuscular Hemoglobin Concent 35 g/dL (31-37) Red Cell Distribution Width 14.2 % (11.5-14.5) Platelet Count 143 x10^3/uL (140-400) Neutrophils (%) (Auto) 82 % (31-73) Lymphocytes (%) (Auto) 10 % (24-48) Monocytes (%) (Auto) 8 % (0-9) Eosinophils (%) (Auto) 0 % (0-3) Basophils (%) (Auto) 0 % (0-3) Neutrophils # (Auto) 6.1 x10^3/uL (1.8-7.7) Lymphocytes # (Auto) 0.7 x10^3/uL (1.0-4.8) Monocytes # (Auto) 0.6 x10^3/uL (0.0-1.1) Eosinophils # (Auto) 0.0 x10^3/uL (0.0-0.7) Basophils # (Auto) 0.0 x10^3/uL (0.0-0.2) Sodium Level 137 mmol/L (136-145) Potassium Level 3.6 mmol/L (3.5-5.1) Chloride Level 103 mmol/L (98-107) Carbon Dioxide Level 28 mmol/L (21-32) Anion Gap 6 (6-14) Blood Urea Nitrogen 23 mg/dL (7-20) Creatinine 0.9 mg/dL (0.6-1.0) Estimated GFR (Cockcroft-Gault) 65.2 Glucose Level 245 mg/dL (70-99) Calcium Level 8.6 mg/dL (8.5-10.1) Test 01/25/20 07:38 Glucose (Fingerstick) 216 mg/dL (70-99) Medications Active Scripts Medications Dose Route/Sig Max Daily Dose Days Date Category Multivitamins (Multivitamin) 1 Each Tablet 1 Tab PO DAILY 04/13/18 Reported Linzess (Linaclotide) 145 Mcg Capsule 145 Mcg PO DAILY07 04/13/18 Reported Aldactone (Spironolactone) 25 Mg Tablet 1 Tab PO DAILY 04/13/18 Reported Diphenhydramine Hcl 50 Mg Capsule 1 Cap PO QHS PRN 04/13/18 Reported Folbic Rf Tablet (B12/Levomefolate Calcium/B-6) 1 Each Tablet 1 Each PO 12/03/17 Reported Amlodipine Besylate 5 Mg Tablet 5 Mg PO DAILY 12/03/17 Reported Ambien (Zolpidem Tartrate) 10 Mg Tablet 1 Tab PO QHS PRN 02/03/16 Reported Glimepiride 2 Mg Tablet 4 Mg PO BID 02/02/16 Reported Lipitor (Atorvastatin Calcium) 20 Mg Tablet 1 Tab PO DAILY 02/02/16 Reported Januvia (Sitagliptin Phosphate) 100 Mg Tablet 1 Tab PO DAILY 02/02/16 Reported Impression . IMPRESSION: 1. Acute hypoxemic respiratory failure secondary to COVID-19 viral pneumonia. 2. COVID-19 viral pneumonia. 3. Nausea and vomiting. 4. Lymphopenia. 5. Thrombocytopenia. 6. Obesity. Plan . Continue current support, may need 6-minute walk prior to discharge Continue 5-day course of remdesivir, Antibiotics fot total of 5 days Oxygen supplementation Steroids DVT prophylaxis Up to chair ok to dc from pulm standpoint CHRISTINA BENTLEY MD Jan 25, 2020 09:34
[2020-01-25] MEDS: REMDESIVIR 100mg in NORMAL SALINE 250ML X 4 DAYS IV SCH (10:04)
[2020-01-25] MEDS: guaiFENesin/CODEINE 100mg/10mg 5 ML LIQUID PO PRN (10:04)
--- NOTE | 2020-01-25 12:20 | PDOC ---
[facility] PROGRESS NOTE Date of Service DOS: DATE: 01/25/20 TIME: 12:19 Chief Complaint Chief Complaint Respiratory failure COVID-19 Abnormal abdominal ultrasound with gallstone and hepatosteatosis and gallbladder polyp Acute generalized malaise due to COVID-19 infection Intractable nausea vomiting Thrombocytopenia Lymphopenia Overweight History of the following; Diabetes-Type II, High Cholesterol, Hypertension, Insomnia Hysterectomy, Tonsillectomy, L knee, RIGHT SHOULDER, myomectomy History of Present Illness History of Present Illness 01/25/2020 Patient seen and examined on the [place] [id number] unit She just finished her last dose of remdesivir We plan to discharge 01/24/2020 Patient seen and examined on the [place] [id number] unit She continues to improve States the codeine cough syrup is helping a lot Discussed with RN Chart reviewed I also called the pharmacy and stopped her Solu-Medrol and changed her to a M edrol Dosepak 01/23/2020 Patient seen and examined on the [place] [id number] unit She is feeling better again today but not as good as yesterday Discussed with case management Discussed with infectious disease Chart reviewed 01/22/2020 Patient seen and examined on the [place] [id number] unit She is feeling a little better today Discussed with museum guide Discussed with RN Discussed with case management Chart reviewed I called the pharmacy to discuss her medications 01/21/2020 Patient seen and examined on the [place] [address] floor She is on oxygen per nasal cannula Appears quite weak Chart reviewed Discussed with RN at length Discussed with case management I went ahead and ordered pulmonary GI and infectious disease consults Also add in steroids and vitamins and spoke with the pharmacy Also added in Combivent metered-dose inhaler Vitals/I&O Vitals/I&O: Vital Signs Date Time Temp Pulse Resp B/P (MAP) Pulse Ox O2 Delivery O2 Flow Rate FiO2 01/25/20 09:24 89 150/77 01/25/20 08:00 Room Air 01/25/20 07:59 20 97 2.0 01/24/20 23:31 97.6 97.6 I & O 01/24/20 01/24/20 01/25/20 15:00 23:00 07:00 Intake Total 1100 ml 360 ml 240 ml Balance 1100 ml 360 ml 240 ml Physical Exam Physical Exam: GENERAL: Alert and oriented x 3. Tired appearing female in no acute distress. HEENT: Normocephalic, atraumatic, anicteric. Oral mucosa moist. NECK: Supple. LUNGS: Decreased breath sounds at the bases. No wheezing. HEART: S1, S2. No gallops or murmurs. ABDOMEN: Soft, obese. Bowel sounds present, nontender, nondistended. EXTREMITIES: No edema, no cyanosis. DERMATOLOGIC: Warm, dry. No generalized rash. NEUROLOGIC: Alert and oriented x 3, grossly nonfocal. PSYCHIATRIC: Cooperative, appropriate mood and affect. General: Alert, Oriented X3, mild distress Heart: Regular rate, No murmurs Lungs: Clear Abdomen: Normal bowel sounds Extremities: No clubbing, No cyanosis Skin: No rashes Labs Labs: Laboratory Tests Test 01/24/20 17:06 01/24/20 21:09 01/25/20 04:00 01/25/20 07:38 Glucose (Fingerstick) 465 mg/dL (70-99) 468 mg/dL (70-99) 216 mg/dL (70-99) White Blood Count 7.5 x10^3/uL (4.0-11.0) Red Blood Count 3.82 x10^6/uL (3.50-5.40) Hemoglobin 11.2 g/dL (12.0-15.5) Hematocrit 32.3 % (36.0-47.0) Mean Corpuscular Volume 84 fL (79-100) Mean Corpuscular Hemoglobin 29 pg (25-35) Mean Corpuscular Hemoglobin Concent 35 g/dL (31-37) Red Cell Distribution Width 14.2 % (11.5-14.5) Platelet Count 143 x10^3/uL (140-400) Neutrophils (%) (Auto) 82 % (31-73) Lymphocytes (%) (Auto) 10 % (24-48) Monocytes (%) (Auto) 8 % (0-9) Eosinophils (%) (Auto) 0 % (0-3) Basophils (%) (Auto) 0 % (0-3) Neutrophils # (Auto) 6.1 x10^3/uL (1.8-7.7) Lymphocytes # (Auto) 0.7 x10^3/uL (1.0-4.8) Monocytes # (Auto) 0.6 x10^3/uL (0.0-1.1) Eosinophils # (Auto) 0.0 x10^3/uL (0.0-0.7) Basophils # (Auto) 0.0 x10^3/uL (0.0-0.2) Sodium Level 137 mmol/L (136-145) Potassium Level 3.6 mmol/L (3.5-5.1) Chloride Level 103 mmol/L (98-107) Carbon Dioxide Level 28 mmol/L (21-32) Anion Gap 6 (6-14) Blood Urea Nitrogen 23 mg/dL (7-20) Creatinine 0.9 mg/dL (0.6-1.0) Estimated GFR (Cockcroft-Gault) 65.2 Glucose Level 245 mg/dL (70-99) Calcium Level 8.6 mg/dL (8.5-10.1) Test 01/25/20 11:39 Glucose (Fingerstick) 301 mg/dL (70-99) Assessment and Plan Assessmemt and Plan Problems Medical Problems: (1) COVID-19 virus infection Status: Acute (2) Dehydration Status: Acute (3) Hyperglycemia Status: Acute (4) Nausea & vomiting Status: Acut Plan is discharge home see dictation Comment Review of Relevant I have reviewed the following items bora (where applicable) has been applied. Medications: Current Medications Medications (Trade) Dose Ordered Sig/Jasper Route PRN Reason Start Time Stop Time Status Last Admin Dose Admin Methylprednisolone (Medrol) 8 mg BID PO 01/24/20 13:00 01/24/20 21:01 DC 01/24/20 20:39 Methylprednisolone (Medrol) 4 mg BIDPCLD PO 01/24/20 15:00 01/24/20 17:31 DC 01/24/20 16:10 Methylprednisolone (Medrol) 4 mg TIDPC PO 01/25/20 08:30 01/25/20 17:31 01/25/20 11:43 Insulin Human Lispro (HumaLOG) 30 units 1X ONCE SQ 01/24/20 17:30 01/24/20 17:31 DC 01/24/20 17:28 Insulin Human Lispro (HumaLOG) 40 units 1X ONCE SQ 01/24/20 22:30 01/24/20 22:31 DC 01/24/20 22:13 Zolpidem Tartrate (Ambien) 5 mg 1X ONCE PO 01/24/20 22:30 125/20 22:31 DC 01/24/20 22:12 Justifications for Admission Other Justification + COVID INfection ARTI DELUCA III DO Jan 25, 2020 12:20
--- NOTE | 2020-01-25 12:52 | NUR ---
Discharge Note: PT DISCHARGED HOME WITH SELF CARE. PT LEFT FACILITY VIA PRIVATE VEHICLE WITH DAUGHTER AT 1250. PT STABLE AND ALERT UPON DISCHARGE. PT PIV REMOVED FROM L HAND AND R FA WITHOUT COMPLICATIONS, BANDAGE APPLIED. PT EDUCATED ABOUT DISCHARGE INSTRUCTIONS, DISCHARGE MEDICATIONS, AND FOLLOW-UP CARE. PT VOICED NO CONCERNS AT THIS TIME. PT LEFT WITH ALL PERSONAL BELONGINGS. NAZANIN SIMMONS Discharge instructions and discharge home medications reviewed with Patient and a copy given. All questions have been answered and understanding verbalized.
[2020-01-25] MEDS ORDERED: methylPREDNISolone 4 MG TABLET. PO SCH (21:00)
[2020-01-26] MEDS ORDERED: methylPREDNISolone 4 MG TABLET. PO SCH (09:00)
[2020-01-27] MEDS ORDERED: methylPREDNISolone 4 MG TABLET. PO SCH (09:00)
[2020-01-28] MEDS ORDERED: methylPREDNISolone 4 MG TABLET. PO SCH (09:00)
[2020-01-29] MEDS ORDERED: methylPREDNISolone 4 MG TABLET. PO SCH (09:00)
== END 2020-01-25 12:54 | disposition home or self-care (01) | DRG 177 ==
LOC: ER 11:32 → 6 SOUTH 15:00
PROVIDERS: ADMIT Internal Medicine; ATTEND Internal Medicine
PROC: XW033E5 Introduction of Remdesivir Anti-infective into Peripheral Vein, Percutaneous Approach, New Technology Group 5 (ICD-10-PCS; principal; 2020-01-21)
DX: U07.1 COVID-19 (principal); J96.01 Acute respiratory failure with hypoxia; J15.9 Unspecified bacterial pneumonia; J12.89 Other viral pneumonia; Z68.42 Body mass index [BMI] 45.0-49.9, adult; D61.818 Other pancytopenia; E87.1 Hypo-osmolality and hyponatremia; E78.00 Pure hypercholesterolemia, unspecified; I10 Essential (primary) hypertension; G47.00 Insomnia, unspecified; E86.0 Dehydration; K76.0 Fatty (change of) liver, not elsewhere classified; K80.20 Calculus of gallbladder without cholecystitis without obstruction; R16.0 Hepatomegaly, not elsewhere classified; E11.65 Type 2 diabetes mellitus with hyperglycemia; E66.01 Morbid (severe) obesity due to excess calories; R53.81 Other malaise; E78.5 Hyperlipidemia, unspecified; E11.42 Type 2 diabetes mellitus with diabetic polyneuropathy; Z90.711 Acquired absence of uterus with remaining cervical stump; Z98.42 Cataract extraction status, left eye; Z98.41 Cataract extraction status, right eye; Z83.71 Family history of colonic polyps; Z80.1 Family history of malignant neoplasm of trachea, bronchus and lung; Z83.3 Family history of diabetes mellitus; Z82.49 Family history of ischemic heart disease and other diseases of the circulatory system
CPT/HCPCS: 36415; 71045; 76705; 80048; 80053; 80076; 82728; 82962; 83615; 83690; 83735; 83880; 84100; 84484; 85007; 85025; 85379; 86140; 96361; 96374; 96375; J0456; J0696; J1650; J1815; J2270; J2405; J2765; J2920; J3411; J3490; J7030; J7050; J7060; J7509; 99285-25; G0378; Q0163

== ENCOUNTER → 2020-08-09 | Outpatient (CLI) | payer OTHER ==
[~2020-08-09] MED LIST changes: +LISI10TA16 PO; -LISI10TA2 PO; -MORPHINE SULFATE 4 MG/ML VIAL. IV PRN
--- NOTE | 2020-08-09 20:06 | RAD ---
US THYROID History: Reason: NECK FULLNESS / Spl. Instructions: / History: Comparison: None. Technique: Multiple grayscale and color Doppler images of the thyroid gland were obtained. Findings: Right thyroid lobe: 5.2 x 1.6 x 1.8 cm. Homogeneous echotexture. Left thyroid lobe: 4.9 x 1.5 x 1.2 cm. Homogeneous echotexture. Isthmus: 0.3 cm. -Spongiform right mid thyroid nodule measures 1.5 x 1.2 x 1.0 cm. TI-RADS 2. -Solid hypoechoic left mid thyroid nodule measures 0.8 x 0.9 x 1.0 cm. TI-RADS 4. -Solid hypoechoic left mid thyroid nodule measures 0.7 x 0.6 x 0.4 cm. TI-RADS 4. -Solid hypoechoic left inferior thyroid nodule measures 0.9 x 0.8 x 0.7 cm. TI-RADS 4. ACR Thyroid Imaging, Reporting And Data System (TI-RADS): White Paper Of The ACR TI-RADS Committee. J ournal of the [place], volume 14, issue 5, pages 587-595 (June 2016). IMPRESSION: 1. TI-RADS 4 left thyroid nodules. Recommend one-year follow-up. Electronically signed by: Donald Bass DO (08/09/2020 8:03 PM) [facility]
== END ==
LOC: US 15:54
PROVIDERS: ATTEND Nurse Practitioner Family
DX: E04.2 Nontoxic multinodular goiter (principal)
CPT/HCPCS: 76536

== ENCOUNTER → 2020-08-20 | Outpatient (CLI) | payer OTHER ==
--- NOTE | 2020-08-20 09:36 | KCIC ---
Bilateral digital screening mammograms with 3-D tomosynthesis: Reason for examination: Routine screening. Comparison is made to previous studies dated 11/15/2016 and 1 16,000. Bilateral mammograms in CC and oblique projections were obtained with 2-D imaging and 3-D tomosynthes is imaging on a Siemens Inspiration unit and reviewed on the workstation. Interpretation was made wit h the benefit of CAD. The skin and nipples show no abnormalities. No abnormal axillary lymph nodes are seen. The breast par enchyma shows scattered fatty and fibroglandular density. (Breast density: Category B.) There are no dominant masses, suspicious calcifications or architectural distortion. Benign calcifications are pre sent. Impression: No evidence of malignancy. Recommend routine screening. BI-RAD Category 2: Benign. "Our facility is accredited by the [employer] Mammography Program." This patient's information has been entered into a reminder system for the patient to be notified wit h the results of her examination and a target date for the next mammogram. Electronically signed by: Jordyn Arriola MD (08/20/2020 9:33 AM) [id number]
== END ==
LOC: KCIC MAMMO 08:00
PROVIDERS: ATTEND Nurse Practitioner Family
DX: Z12.31 Encounter for screening mammogram for malignant neoplasm of breast (principal)
CPT/HCPCS: 77063; 77067

== ENCOUNTER → 2020-09-03 | Outpatient (CLI) | payer OTHER ==
--- NOTE | 2020-09-03 10:42 | CARD ---
MR#: [id number] Date of Study: 09/03/2020 Ordering Physician: FEDE STEELE, Referring Physician: FEDE STEELE, Tech: Jamal Clark [facility] APPROVED REPORT EXAM: Two-dimensional and M-mode echocardiogram with Doppler and color Doppler. Other Information Quality : GoodHR: 85bpm Rhythm : NSR INDICATION Dyspnea Chest Pain 2D DIMENSIONS Left Atrium(2D)4.5 (1.6-4.0cm)IVSd1.3 (0.7-1.1cm) Aortic Root(2D)3.2 (2.0-3.7cm)LVDd4.1 (3.9-5.9cm) LVOT Diameter1.7 (1.8-2.4cm)PWd1.3 (0.7-1.1cm) LVDs1.7 (2.5-4.0cm)FS (%) 58.0 % SV64.5 mlLVEF(%)88.4 (>50%) Aortic Valve AoV Peak Al.142.1cm/sAoV VTI27.8cm AO Peak GR.8.1mmHgLVOT Peak Al.119.0cm/s AO Mean GR.4mmHgAVA (VMAX)1.96cm2 Mitral Valve MV E Husvfhie218.3cm/sMV E Peak Gr.17mmHg MV DECEL [id number] A Qklowemf801.6cm/s MV E Mean Gr.7mmHgE/A Ratio0.8 Pulmonary Valve PV Peak Vxdeazdt528.2cm/s Tricuspid Valve TR P. Ccnemhxd039fy/sTR Peak Gr.25mmHg Pulmonary Vein S1 Oyomxcqs33.2cm/sD2 Ckytxnmb21.9cm/s LEFT VENTRICLE The left ventricle is normal size. There is mild concentric left ventricular hypertrophy. The left ve ntricular systolic function is normal. The ejection fraction is 60-65%. There is normal LV segmental wall motion. Transmitral Doppler flow pattern is Grade I-abnormal relaxation pattern. No left ventric le thrombus noted on this study. There is no ventricular septal defect visualized. There is no left v entricular aneurysm. There is no mass noted in the left ventricle. RIGHT VENTRICLE The right ventricle is normal size. There is normal right ventricular wall thickness. The right ventr icular systolic function is normal. ATRIA The left atrium is moderately dilated. The right atrium size is normal. The interatrial septum is int act with no evidence for an atrial septal defect or patent foramen ovale as noted on 2-D or Doppler i maging. AORTIC VALVE The aortic valve is normal in structure and function. Doppler and Color Flow revealed no significant aortic regurgitation. There is no significant aortic valvular stenosis. There is no aortic valvular v egetation. MITRAL VALVE Mitral annular calcification is moderate. The mitral valve leaflets are thickened. There is no eviden ce of mitral valve prolapse. There is borerline mitral valve stenosis Calculated mitral valve area is 1.5 cm2 with maximum pressure gradient of 17 mmHg and mean pressure gradient of 7 mmHg. Doppler and Color-flow revealed trace mitral regurgitation. TRICUSPID VALVE The tricuspid valve is normal in structure and function. Doppler and Color Flow revealed trace tricus pid regurgitation. There is no tricuspid valve prolapse or vegetation. There is no tricuspid valve st enosis. PULMONIC VALVE The pulmonary valve is normal in structure and function. Doppler and Color Flow revealed no pulmonic valvular regurgitation. There is no pulmonic valvular stenosis. GREAT VESSELS The aortic root is normal in size. The ascending aorta is normal in size. The pulmonary artery is nor mal. The IVC is normal in size and collapses >50% with inspiration. PERICARDIAL EFFUSION There is no pleural effusion. There is no evidence of significant pericardial effusion. Critical Notification Critical Value: No <Conclusion> The left ventricular systolic function is normal. The ejection fraction is 60-65%. There is normal LV segmental wall motion. Transmitral Doppler flow pattern is Grade I-abnormal relaxation pattern. The left atrium is moderately dilated. Trace mitral regurgitation. Trace tricuspid regurgitation. There is no evidence of significant pericardial effusion. Signed by : Amrit Florence, Electronically Approved : 09/03/2020 10:42:10
== END ==
LOC: ECHO 07:46
PROVIDERS: ATTEND Internal Medicine Cardiovascular Disease
DX: I34.8 Other nonrheumatic mitral valve disorders (principal); R06.00 Dyspnea, unspecified
CPT/HCPCS: 93306

== ENCOUNTER → 2020-10-09 | Outpatient (CLI) | payer OTHER | LOC: LAB 12:27 | PROVIDERS: ATTEND Internal Medicine Pulmonary Disease | DX: Z20.822 Contact with and (suspected) exposure to COVID-19 (principal) | CPT/HCPCS: U0003; U0005 ==

== ENCOUNTER → 2020-10-16 | Outpatient (CLI) | payer OTHER | LOC: LAB 14:56 | PROVIDERS: ATTEND Internal Medicine Pulmonary Disease | DX: Z20.822 Contact with and (suspected) exposure to COVID-19 (principal) | CPT/HCPCS: U0003; U0005 ==

== ENCOUNTER → 2020-10-29 | Outpatient (CLI) | payer OTHER ==
[2020-10-29 09:44] LABS: ALBUMIN 3.6 g/dL (3.4-5.0); ALBUMIN/GLOBULIN RATIO 1.1 (1.0-1.7); CALCIUM 9.6 mg/dL (8.5-10.1); CREATININE 1.2 mg/dL (0.6-1.0); GFR 46.8; POTASSIUM 4.9 mmol/L (3.5-5.1); TOTAL BILIRUBIN 0.5 mg/dL (0.2-1.0); TOTAL PROTEIN 6.8 g/dL (6.4-8.2)
[2020-10-29 09:45] LABS: CHOLESTEROL/HDL RATIO 2.5
[2020-10-29 10:03] LABS: FREE T4 1.21 ng/dL (0.76-1.46); THYROID STIM HORMONE (TSH) 2.003 uIU/mL (0.358-3.74)
[2020-10-30 01:12] LABS: HEMOGLOBIN A1C 5.3 % (4.8-5.6)
== END ==
LOC: LAB 09:09
PROVIDERS: ATTEND Nurse Practitioner Family
DX: E11.65 Type 2 diabetes mellitus with hyperglycemia (principal); E04.1 Nontoxic single thyroid nodule; E78.5 Hyperlipidemia, unspecified; E55.9 Vitamin D deficiency, unspecified
CPT/HCPCS: 36415; 80053; 80061; 82306; 83036; 84439; 84443

== ENCOUNTER 2020-12-16 23:43 | Emergency (ER) | payer OTHER ==
[~2020-12-16] VITALS: Ht 170.2 cm; Wt 100.0 kg
[~2020-12-16 23:43] MED LIST changes: -DIPH50CA PO; +DIPH50CA16 PO
--- NOTE | 2020-12-16 23:55 | PHYS DOC ---
Past Medical History Past Medical History: Diabetes-Type II, High Cholesterol, Hypertension, Other Additional Past Medical Histor: Insomnia Past Surgical History: Hysterectomy, Tonsillectomy, Other Additional Past Surgical Histo: L knee, RIGHT SHOULDER, myomectomy Smoking Status: Never Smoker Alcohol Use: None Drug Use: None General Adult EDM: Chief Complaint: BACK INJURY HPI: HPI: Patient is a 55 year old female who presents with left thoracic back pain. Symptoms began last Sunday and have progressively worsened throughout this week. She has been working out with a rehab trainer, and she has recently traveled on an airplane and went to [place] to help her son move into a new home. Her pain is worse with palpation and movement. She denies chest pain or dyspnea. She denies cough or fever. She denies abdominal pain. She denies skin rash. She denies urinary symptoms. She denies lower extremity or upper extremity weakness or numbness or tingling. She denies any direct trauma or injury. She has taken ibuprofen without any relief. She reports that she became increasingly uncomfortable on the plane ride home, having difficulty find ing a comfortable position. Review of Systems: Review of Systems: Constitutional: Denies fever or chills. [] HENT: Denies nasal congestion or sore throat. [] Respiratory: Denies cough or shortness of breath. [] Cardiovascular: Denies chest pain or edema. [] GI: Denies abdominal pain, nausea, vomiting : Denies any urinary symptoms. Musculoskeletal: Reports left-sided thoracic back pain. Denies joint pain or swelling. Integument: Denies rash. [] Neurologic: Denies headache, focal weakness or sensory changes. [] Psychiatric: Denies depression or anxiety. [] Heart Score: C/O Chest Pain: No Risk Factors: Risk Factors: DM, Current or recent (<one month) smoker, HTN, HLP, family history of CAD, obesity. Risk Scores: Score 0 - 3: 2.5% MACE over next 6 weeks - Discharge Home Score 4 - 6: 20.3% MACE over next 6 weeks - Admit for Clinical Observation Score 7 - 10: 72.7% MACE over next 6 weeks - Early Invasive Strategies Allergies: Allergies: Allergies Coded Allergies Type Severity Reaction Last Updated Verified No Known Drug Allergies 06/19/18 No Physical Exam: PE: Constitutional: Well developed, well nourished, no acute distress, non-toxic appearance. She does appear to be uncomfortable HENT: Normocephalic, atraumatic Eyes: Sclera are clear and anicteric. Neck: Normal range of motion, no tenderness, supple, trachea is midline. No midline tenderness or step-offs. Cardiovascular:Heart rate regular rhythm, was 2 radial pulses bilaterally. Lungs & Thorax: Bilateral breath sounds clear to auscultation. Equal chest rise. No rales, rhonchi or wheezes. Abdomen: Abdomen soft, nondistended, no tenderness. No flank or abdominal ecchymoses or rash noted. Skin: Warm, dry, no erythema, no rash. [] Back: Diffuse midline and left-sided paraspinal soft tissue thoracic spine tenderness. No palpable step-offs or crepitus. No deformity. No warmth erythema. No rash. Limited range of motion, secondary to pain. Pain is reproduced with range of motion, movement and palpation. Extremities: No tenderness, no cyanosis, no clubbing, ROM intact, no edema. [] Neurologic: Alert and oriented X 3, normal motor function, normal sensory function, no focal deficits noted. [] Psychologic: Affect normal, judgement normal, mood normal. [] EKG: EKG: [] Radiology/Procedures: Radiology/Procedures: IMAGING REPORT Signed PATIENT: NAZANIN SIMMONS ACCOUNT: [id number] : 1965 LOCATION: ER AGE: 55 SEX: F EXAM STATUS: REG ER ORD. PHYSICIAN: SHANNON REAL DO REASON: pain PROCEDURE: THORACIC SPINE 3V Examination: 3 views of the thoracic spine HISTORY: History of thoracic spine COMPARISON: None FINDINGS: The thoracic vertebral body heights are maintained. Mild intervertebral disc height loss identified in the thoracic spine likely degenerative changes. IMPRESSION: Mild degenerative changes thoracic spine. Electronically signed by: Mehdi Montana MD (12/17/2020 12:59 AM) [id number] DICTATED and SIGNED BY: MEHDI MONTANA MD DATE: 12/17/20 [id number] 0 Course & Med Decision Making: Course & Med Decision Making Pertinent Labs and Imaging studies reviewed. (See chart for details) The patient is given p.o. Valium and IM Toradol as well as a Lidoderm patch. She fell asleep and is resting comfortably. When she awoke she was having some more pain. I did offer opioid medication, either IM or p.o., which she declines. She reports that she took an Ambien prior to arrival, and she did not want to be any more groggy. I discussed all the findings, differential diagnosis and plan of care with her. She is comfortable with the plan for discharge home. I do recommend she follow-up with her primary care physician. I discussed home care instructions, including gentle stretching and alternating ice and heat. I do recommend that she abstain from any intense physical training or exercise for now. Return precautions are given Jose Disclaimer: Jose Disclaimer: This electronic medical record was generated, in whole or in part, using a voice recognition dictation system. Departure Departure Impression: Primary Impression: Thoracic back pain Qualified Codes: M54.6 - Pain in thoracic spine Disposition: HOME / SELF CARE / HOMELESS Condition: STABLE Referrals: RONNY ATKINSON APRN (PCP) Scripts Hydrocodone Bit/Acetaminophen (HYDROCODONE-APAP 5-325 ) 1 Tab Tablet 1 TAB PO PRN Q6HRS PRN for PAIN, #15 TAB 0 Refills Prov: SHANNON REAL DO 12/17/20 Lidocaine (Lidocaine PATCH ) 1 Each Adh..patch 1 EACH TP DAILY for FOR LOCAL PAIN, #10 PATCH REMOVE AFTER 12 HOURS Prov: SHANNON REAL DO 12/17/20 Diazepam (VALIUM) 5 Mg Tablet 5 MG PO BID for muscle spasm, #14 TAB Prov: SHANNON REAL DO 12/17/20 SHANNON REAL DO Dec 16, 2020 23:55
[2020-12-17] MEDS ORDERED: diazePAM 5 MG TABLET PO ONE (00:15)
[2020-12-17] MEDS ORDERED: KETOROLAC 60 MG/2 ML VIAL. IM ONE (00:15)
[2020-12-17] MEDS ORDERED: LIDOCAINE (700MG/PATCH) PATCH. TD ONE (00:15)
--- NOTE | 2020-12-17 01:01 | RAD ---
Examination: 3 views of the thoracic spine HISTORY: History of thoracic spine COMPARISON: None FINDINGS: The thoracic vertebral body heights are maintained. Mild intervertebral disc height loss identified i n the thoracic spine likely degenerative changes. IMPRESSION: Mild degenerative changes thoracic spine. Electronically signed by: Mehdi Montana MD (12/17/2020 12:59 AM) [id number]
[2020-12-17] MEDS ORDERED: LIDO700A21 TP (01:11)
[2020-12-17] MEDS ORDERED: DIAZ5TAB PO (01:11)
[2020-12-17] MEDS ORDERED: HYDR-2761 PO (01:11)
[2020-12-17 01:20] VITALS: BP 144/85
[2020-12-17] MEDS ORDERED: ONDA4TAB7 PO (03:10)
== END 2020-12-17 01:25 | disposition home or self-care (01) ==
LOC: ER 23:43
DX: M54.6 Pain in thoracic spine (principal); E11.9 Type 2 diabetes mellitus without complications; E78.00 Pure hypercholesterolemia, unspecified; I10 Essential (primary) hypertension; Z90.710 Acquired absence of both cervix and uterus
CPT/HCPCS: 72072; 96372; 99283; J1885

== ENCOUNTER 2020-12-17 01:41 | Emergency (ER) | payer OTHER ==
[~2020-12-17] VITALS: Ht 170.2 cm; Wt 100.0 kg
[~2020-12-17 01:41] MED LIST changes: +DIAZ5TAB PO; +HYDR-2761 PO; +LIDO700A21 TP
--- NOTE | 2020-12-17 02:25 | PHYS DOC ---
Past Medical History Past Medical History: Diabetes-Type II, High Cholesterol, Hypertension, Other Additional Past Medical Histor: Insomnia Past Surgical History: Hysterectomy, Tonsillectomy, Other Additional Past Surgical Histo: L knee, RIGHT SHOULDER, myomectomy Smoking Status: Never Smoker Alcohol Use: None Drug Use: None General Adult EDM: Chief Complaint: BACK PAIN OR INJURY HPI: HPI: Patient is a 55 year old female who presents with continued left-sided thoracic back pain. I saw her a few moments ago here in this emergency department. She was treated with oral Valium, IM Toradol and topical Lidoderm patch. She had thoracic spine imaging which revealed no acute fracture or acute process. She had initially agreed to go home and had declined any opioid pain medication prior to dismissal, though she reports that when she got into the car, the pain returned at its previous intensity. She is amenable to receiving opioid pain medication now. She denies any acute changes in symptoms from previous. Please see my previous note from earlier in the shift. She denies any injury or trauma since her dismissal. Denies chest pain or dyspnea. Review of Systems: Review of Systems: Constitutional: Denies fever or chills. [] HENT: Denies nasal congestion or sore throat. [] Respiratory: Denies cough or shortness of breath. [] Cardiovascular: Denies chest pain or edema. [] GI: Denies abdominal pain, nausea, vomiting : Denies urinary symptoms Musculoskeletal: Reports left-sided thoracic back pain. Integument: Denies rash. [] Neurologic: Denies headache, focal weakness or sensory changes. [] Psychiatric: Denies depression or anxiety. [] Heart Score: C/O Chest Pain: No Risk Factors: Risk Factors: DM, Current or recent (<one month) smoker, HTN, HLP, family history of CAD, obesity. Risk Scores: Score 0 - 3: 2.5% MACE over next 6 weeks - Discharge Home Score 4 - 6: 20.3% MACE over next 6 weeks - Admit for Clinical Observation Score 7 - 10: 72.7% MACE over next 6 weeks - Early Invasive Strategies Allergies: Allergies: Allergies Coded Allergies Type Severity Reaction Last Updated Verified No Known Drug Allergies 06/19/18 No Physical Exam: PE: Constitutional: Well developed, well nourished, no acute distress, non-toxic appearance. She does appear to be somewhat anxious and is uncomfortable. HENT: Normocephalic, atraumatic Eyes: Sclera clear and anicteric Neck: Trachea midline Cardiovascular: Well-perfused appearing Lungs & Thorax: Respirations are nonlabored Skin: Warm, dry, intact Back: Left thoracic soft tissue and midline thoracic tenderness. Palpation and movement and range of motion reproduces pain. No deformity. See previous note for further details of the spine exam. No changes from previous exam findings. Extremities: No limb deformity. No peripheral edema. Neurologic: Alert and oriented X 3, normal motor function, normal sensory function, no focal deficits noted. She is ambulatory with a steady gait. Speech is clear and fluent. Psychologic: She is anxious and appears to be in pain, though she is pleasant cooperative. Current Patient Data: Vital Signs: Vital Signs Date Time Temp Pulse Resp B/P (MAP) Pulse Ox O2 Delivery O2 Flow Rate FiO2 12/17/20 01:55 98.2 85 18 147/85 (105) 100 Room Air 98.2 EKG: EKG: [] Radiology/Procedures: Radiology/Procedures: [] Course & Med Decision Making: Course & Med Decision Making Repeat imaging was not performed. Her pain still does seem to be most likely musculoskeletal in etiology. She was given IM morphine and p.o. ODT Zofran. She reports feeling much better, and she is resting much more comfortably, she does not appear to be in any significant pain or discomfort at present. I have once again discussed the findings, differential diagnosis and plan of care with her. She is very comfortable with the plan for discharge home now. I told her to follow-up with her primary care physician. Return precautions are given. Jose Disclaimer: Jose Disclaimer: This electronic medical record was generated, in whole or in part, using a voice recognition dictation system. Departure Departure Impression: Primary Impression: Thoracic back pain Qualified Codes: M54.6 - Pain in thoracic spine Disposition: HOME / SELF CARE / HOMELESS Condition: STABLE Referrals: RONNY ATKINSON APRN (PCP) Patient Instructions: Back Pain, Adult Additional Instructions: Use the medications as directed and as needed. Return immediately for any acute trauma or injury, chest pain, shortness of breath, coughing up blood, fever 100.4 or higher, if you develop any rash or any other concerns. Please contact your primary care physician for follow-up. Scripts Ondansetron Hcl (ZOFRAN) 4 Mg Tablet 4 MG PO PRN TID PRN for NAUSEA, #20 TAB nausea/vomiting Prov: SHANNON REAL DO 12/17/20 SHANNON REAL DO Dec 17, 2020 02:25
[2020-12-17] MEDS ORDERED: ONDANSETRON ODT 4 MG TAB.RAPDIS. PO ONE (02:45)
[2020-12-17] MEDS ORDERED: MORPHINE SULFATE 4 MG/ML INJ. IM ONE (02:45)
[2020-12-17] MEDS ORDERED: ONDA4TAB7 PO (03:10)
[2020-12-17 03:12] VITALS: BP 149/76
== END 2020-12-17 03:25 | disposition home or self-care (01) ==
LOC: ER 01:41
DX: M54.6 Pain in thoracic spine (principal); I10 Essential (primary) hypertension; E11.9 Type 2 diabetes mellitus without complications; E78.00 Pure hypercholesterolemia, unspecified; Z90.710 Acquired absence of both cervix and uterus
CPT/HCPCS: 96372; 99283; J2270

== ENCOUNTER → 2021-02-20 | Outpatient (CLI) | payer OTHER ==
[~2021-02-20] MED LIST changes: +ONDA4TAB7 PO
[2021-02-20 20:32] LABS: ALBUMIN 3.6 g/dL (3.4-5.0); ALBUMIN/GLOBULIN RATIO 1.1 (1.0-1.7); CALCIUM 9.1 mg/dL (8.5-10.1); CREATININE 1.4 mg/dL (0.6-1.0); POTASSIUM 4.3 mmol/L (3.5-5.1); TOTAL BILIRUBIN 0.4 mg/dL (0.2-1.0)
[2021-02-20 20:33] LABS: CHOLESTEROL/HDL RATIO 2.7
[2021-02-20 20:43] LABS: FREE T4 1.06 ng/dL (0.76-1.46); THYROID STIM HORMONE (TSH) 2.007 uIU/mL (0.358-3.74)
[2021-02-22 01:08] LABS: HEMOGLOBIN A1C 5.7 % (4.8-5.6)
== END ==
LOC: LAB 12:12
PROVIDERS: ATTEND Nurse Practitioner Family
DX: I10 Essential (primary) hypertension (principal); E11.9 Type 2 diabetes mellitus without complications; E78.5 Hyperlipidemia, unspecified
CPT/HCPCS: 80053; 80061; 83036; 84439; 84443

== ENCOUNTER 2021-05-28 20:01 | Observation (INO) | payer OTHER ==
[~2021-05-28] VITALS: Ht 170.2 cm; Wt 82.6 kg
[2021-05-28 20:44] LABS: HEMATOCRIT 31.5 % (36.0-47.0); HEMOGLOBIN 10.7 g/dL (12.0-15.5); RED BLOOD COUNT 3.47 x10^6/uL (3.50-5.40); RED CELL DISTRIBUTION WIDTH 13.8 % (11.5-14.5); WHITE BLOOD COUNT 7.4 x10^3/uL (4.0-11.0)
--- NOTE | 2021-05-28 20:54 | RAD ---
CT HEAD INDICATION:right sided lower leg weakness COMPARISON: None Available. Exposure: One or more of the following individualized dose reduction techniques were utilized for thi s examination: 1. Automated exposure control 2. Adjustment of the mA and/or kV according to patient size 3. Use of iterative reconstruction technique TECHNIQUE: 5 mm contiguous axial images were obtained from the skull base to the vertex in both bone and soft tissue algorithm. FINDINGS: No abnormal attenuation within the brain parenchyma. No evidence of acute intracranial hemorrhage. No extra-axial fluid collections. No mass effect or midline shift. Ventricular size is appropriate. Basal cisterns are patent. No fractures identified.Mejia-white differentiation is preserved.Globes and orbits are within normal l imits. Paranasal sinuses and mastoid air cells are clear. IMPRESSION: No acute intracranial findings. Electronically signed by: Mehdi Montana MD (05/28/2021 8:52 PM) [id number]
[2021-05-28 20:56] LABS: CALCIUM 9.3 mg/dL (8.5-10.1); CREATININE 1.6 mg/dL (0.6-1.0); GFR 33.5; POTASSIUM 4.2 mmol/L (3.5-5.1)
[2021-05-28] MEDS ORDERED: IV NORMAL SALINE 1000ML BAG 1,000 ML IV ONE ×3 (22:30)
[2021-05-28 22:38] LABS: BACTERIA,URINE 0 /HPF (0-FEW); RBC,URINE 0 /HPF (0-2); WBC,URINE OCC /HPF (0-4)
[2021-05-29 00:57] LABS: CALCIUM 8.5 mg/dL (8.5-10.1); CREATININE 1.2 mg/dL (0.6-1.0); GFR 46.6
--- NOTE | 2021-05-29 01:33 | PHYS DOC ---
Past Medical History Past Medical History: Diabetes-Type II, High Cholesterol, Hypertension, Other Additional Past Medical Histor: Insomnia Past Surgical History: Hysterectomy, Tonsillectomy, Other Additional Past Surgical Histo: L knee, RIGHT SHOULDER, myomectomy Smoking Status: Never Smoker Alcohol Use: None Drug Use: None General Adult EDM: Chief Complaint: LOWER EXT PAIN HPI: HPI: Patient is a 56 year old female who presents with a strain sensation in her right lower extremity and fatigue. She states that she felt some symptoms in her right lower extremity that are ros to possible fasciculations. She is overall having some weakness but predominantly in that affected extremity. States that she has been dealing with this dizziness issue for quite some time and was told that it was more of a peripheral cause rather than a central cause. Has not had any imaging of her brain. Review of Systems: Review of Systems: Constitutional: Denies fever or chills. [] Eyes: Denies change in visual acuity. [] HENT: Denies nasal congestion or sore throat. [] Respiratory: Denies cough or shortness of breath. [] Cardiovascular: Denies chest pain or edema. [] GI: Denies abdominal pain, nausea, vomiting, bloody stools or diarrhea. [] : Denies dysuria. [] Musculoskeletal: Denies back pain or joint pain. [] Integument: Denies rash. [] Neurologic: Overall fatigue with some heaviness in her right lower extremity] Endocrine: Denies polyuria or polydipsia. Only urinated once today Lymphatic: Denies swollen glands. [] Psychiatric: Denies depression or anxiety. [] Heart Score: C/O Chest Pain: No Risk Factors: Risk Factors: DM, Current or recent (<one month) smoker, HTN, HLP, family history of CAD, obesity. Risk Scores: Score 0 - 3: 2.5% MACE over next 6 weeks - Discharge Home Score 4 - 6: 20.3% MACE over next 6 weeks - Admit for Clinical Observation Score 7 - 10: 72.7% MACE over next 6 weeks - Early Invasive Strategies Current Medications: Current Medications Medications (Trade) Dose Ordered Sig/Jasper Start Time Stop Time Status Last Admin Dose Admin Sodium Chloride 1,000 ml @ 1,000 mls/hr 1X ONCE 05/28/21 22:30 05/28/21 23:29 DC 05/28/21 22:23 1,000 MLS/HR Allergies: Allergies: Allergies Coded Allergies Type Severity Reaction Last Updated Verified No Known Drug Allergies 06/19/18 No Physical Exam: PE: Constitutional: Well developed, well nourished, no acute distress, non-toxic appearance. [] HENT: Normocephalic, atraumatic, bilateral external ears normal, oropharynx moist, no oral exudates, nose normal. [] Eyes: PERRLA, EOMI, conjunctiva normal, no discharge. [] Neck: Normal range of motion, no tenderness, supple, no stridor. [] Cardiovascular:Heart rate regular rhythm, no murmur [] Lungs & Thorax: Bilateral breath sounds clear to auscultation [] Abdomen: Bowel sounds normal, soft, no tenderness, no masses, no pulsatile masses. [] Skin: Warm, dry, no erythema, no rash. [] Back: No tenderness, no CVA tenderness. [] Extremities: No tenderness, no cyanosis, no clubbing, ROM intact, no edema. [] Neurologic: Alert and oriented X 3, normal motor function, normal sensory function, no focal deficits noted. [] Psychologic: Affect normal, judgement normal, mood normal. [] Current Patient Data: Labs: Laboratory Tests Test 05/28/21 20:25 05/28/21 22:13 05/29/21 00:08 White Blood Count 7.4 x10^3/uL (4.0-11.0) Red Blood Count 3.47 x10^6/uL (3.50-5.40) L Hemoglobin 10.7 g/dL (12.0-15.5) L Hematocrit 31.5 % (36.0-47.0) L Mean Corpuscular Volume 91 fL (79-100) Mean Corpuscular Hemoglobin 31 pg (25-35) Mean Corpuscular Hemoglobin Concent 34 g/dL (31-37) Red Cell Distribution Width 13.8 % (11.5-14.5) Platelet Count 240 x10^3/uL (140-400) Sodium Level 141 mmol/L (136-145) 142 mmol/L (136-145) Potassium Level 4.2 mmol/L (3.5-5.1) 4.0 mmol/L (3.5-5.1) Chloride Level 106 mmol/L (98-107) 110 mmol/L (98-107) H Carbon Dioxide Level 28 mmol/L (21-32) 25 mmol/L (21-32) Anion Gap 7 (6-14) 7 (6-14) Blood Urea Nitrogen 55 mg/dL (7-20) H 48 mg/dL (7-20) H Creatinine 1.6 mg/dL (0.6-1.0) H 1.2 mg/dL (0.6-1.0) H Estimated GFR (Cockcroft-Gault) 33.5 46.6 Glucose Level 95 mg/dL (70-99) 85 mg/dL (70-99) Calcium Level 9.3 mg/dL (8.5-10.1) 8.5 mg/dL (8.5-10.1) Urine Collection Type Unknown Urine Color (Auto) Light yellow Urine Turbidity Clear Urine pH (Auto) 5.0 (<5.0-8.0) Urine Specific [place] 1.026 (1.000-1.030) Urine Protein (Auto) Negative mg/dL (Negative) Urine Glucose (Auto)(UA) Negative mg/dL (Negative) Urine Ketones (Auto) Negative mg/dL (Negative) Urine Blood (Auto) Negative (Negative) Urine Nitrite Negative (Negative) Urine Bilirubin (Auto) Negative (Negative) Urine Urobilinogen (Auto) Normal mg/dL (Normal) Urine Leukocyte Esterase (Auto) Negative (Negative) Urine RBC 0 /HPF (0-2) Urine WBC Occ /HPF (0-4) Urine Squamous Epithelial Cells Few /LPF Urine Bacteria 0 /HPF (0-FEW) Urine Mucus Slight /LPF Laboratory Tests 05/28/21 20:25 Laboratory Tests 05/28/21 20:25 05/29/21 00:08 Vital Signs: Vital Signs Date Time Temp Pulse Resp B/P (MAP) Pulse Ox O2 Delivery O2 Flow Rate FiO2 05/28/21 21:44 84 121/62 (81) 96 Room Air 05/28/21 20:05 97.9 18 97.9 EKG: EKG: [] Radiology/Procedures: Radiology/Procedures: [] Course & Med Decision Making: Course & Med Decision Making Pertinent Labs and Imaging studies reviewed. (See chart for details) Patient's BUN is significantly elevated from baseline. Creatinine ratio greater than 20. After being given approximately 3 L normal saline her BUN came down significantly. Will be admitted for further work-up and IV hydration. Dragon Disclaimer: Dragon Disclaimer: This electronic medical record was generated, in whole or in part, using a voice recognition dictation system. Departure Departure Impression: Primary Impression: ARF (acute renal failure) Disposition: ADMITTED INPATIENT Condition: STABLE Referrals: RONNY ATKINSON APRN (PCP) SANDHYA GARNICA MD May 29, 2021 01:33
[2021-05-29 03:30] VITALS: BP_SYST 121; BP_SYST 123; BP_SYST 153; BP_DIAS 62; BP_DIAS 72
[2021-05-29] MEDS ORDERED: IV NORMAL SALINE 1000ML BAG 1,000 ML IV ONE (04:00)
[2021-05-29] MEDS ORDERED: COLL1CAP PO (04:22)
[2021-05-29] MEDS ORDERED: LOSA25TA PO (04:22)
[2021-05-29] MEDS ORDERED: ZOLP12.52 PO (04:22)
[2021-05-29] MEDS ORDERED: INUL2TAB4 PO (04:22)
[2021-05-29 07:00] VITALS: BP 151/63
[2021-05-29] MEDS ORDERED: IV NORMAL SALINE 1000ML BAG 1,000 ML IV SCH (09:30)
[2021-05-29 11:00] VITALS: BP 147/83
[2021-05-29 12:19] LABS: CALCIUM 8.7 mg/dL (8.5-10.1); CREATININE 1.4 mg/dL (0.6-1.0); POTASSIUM 4.1 mmol/L (3.5-5.1)
--- NOTE | 2021-05-29 15:49 | SSS ---
DATE OF SERVICE: 05/29/2021 ADMIT DATE: 05/29/2021 CHIEF COMPLAINT: Right lower extremity leg cramps. 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 Last night, she came into the ER because her legs were bothering her. In particular, the right leg had some fasciculations and fatigue. She was having some difficulty walking. When they checked her labs, they notes that she had azotemia with a BUN of 55 and a creatinine of 1.6. She was admitted overnight for observation. This morning, I have seen her and examined her. She is doing well. Her BUN is down into the 30s. She has received 5 liters of fluids. Suspect, we will let her go home and have her see her doctor next week. PAST MEDICAL HISTORY: Chronic renal insufficiency, diabetes, hypertension, hyperlipidemia, insomnia, hysterectomy, tonsillectomy, left knee surgery, right shoulder surgery, myomectomy. ALLERGIES: None. FAMILY HISTORY: Diabetes. SOCIAL HISTORY: She does not drink, smoke or take drugs. 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 MEDICATIONS: Reviewed, please refer to the MRAD. REVIEW OF SYSTEMS: GENERAL: No history of weight change, weakness or fevers. SKIN: No bruising, hair changes or rashes. EYES: No blurred, double or loss of vision. NOSE AND THROAT: No history of nosebleeds, hoarseness or sore throat. HEART: No history of palpitations, chest pain or shortness of breath on exertion. LUNGS: Denies cough, hemoptysis, wheezing or shortness of breath. GASTROINTESTINAL: Denies changes in appetite, nausea, vomiting, diarrhea or constipation. GENITOURINARY: No history of frequency, urgency, hesitancy or nocturia. NEUROLOGIC: Denies history of numbness, tingling, tremor or weakness. PSYCHIATRIC: No history of panic, anxiety or depression. ENDOCRINE: No history of heat or cold intolerance, polyuria or polydipsia. EXTREMITIES: Denies muscle weakness, joint pain, pain on walking or stiffness. PHYSICAL EXAMINATION: VITALS: Within normal limits and are stable. GENERAL: No apparent distress. Alert and oriented. HEENT: Normal cephalic atraumatic, external auditory canals are patent. EYES: Extraocular muscles are intact, pupils are equally round and reactive to light and accommodation. MUSCULOSKELETAL: Well developed, well nourished, good range of motion. ENDOCRINE: No thyromegaly was palpated. LYMPHATICS: No cervical chain or axillary nodes were noted. HEMATOPOIETIC: No bruising. NECK: Supple, no JVD, no thyromegaly was noted. LUNGS: Clear to auscultation in all lung mccauley without rhonchi or wheezing. HEART: RRR, S1, S2 present. Peripheral pulses intact, no obvious murmurs were noted. ABDOMEN: Soft, nontender. Positive bowel sounds no organomegaly, normal bowel sounds. EXTREMITIES: Without any cyanosis, clubbing, or edema. Pedal pulses intact, Homans sign is negative. NEUROLOGIC: Normal speech, normal tone. A and O x 3, moves all extremities, no obvious focal deficits. PSYCHIATRIC: Normal affect, normal mood. Stable. SKIN: No ulcerations or rashes, good skin turgor, no jaundice. VASCULAR: Good capillary refill, neurovascular bundle appears to be intact. LABORATORY DATA: BUN is down from 55 to 39, creatinine 1.4. ASSESSMENT AND PLAN: Resolving azotemia, suspect secondary to dehydration. Clinically, she looks great. She would like to go home. We go ahead and let her go home and see her doctor in a week and she is going to follow up with Nephrology. I am going to resume her home meds, but stop her Aldactone. DISPOSITION: Home. ACTIVITY: As tolerated. DIET: Low sodium. MEDICATIONS: I am going to stop her home Aldactone for now. Atorvastatin 20 mg a day, Collagen 1500 plus C 1 capsule a day, Benadryl 50 mg at bedtime for sleep, fiber gummies 2 daily, losartan 25 a day, multiple vitamins, and Ambien 12.5 at bedtime as needed. TOTAL TIME: 31 minutes. JORDAN/ROSALINDA DR: JORDAN/gallo TID: [id number]
== END 2021-05-29 14:15 | disposition home or self-care (01) ==
LOC: EEVIPCON 20:01 → ER 20:01 → 2 NORTH 05-29 02:24
PROVIDERS: ADMIT Internal Medicine; ATTEND Internal Medicine
DX: N17.9 Acute kidney failure, unspecified (principal); I12.9 Hypertensive chronic kidney disease with stage 1 through stage 4 chronic kidney disease, or unspecified chronic kidney disease; N18.9 Chronic kidney disease, unspecified; E11.22 Type 2 diabetes mellitus with diabetic chronic kidney disease; E78.00 Pure hypercholesterolemia, unspecified; E78.5 Hyperlipidemia, unspecified; I25.10 Atherosclerotic heart disease of native coronary artery without angina pectoris; E66.9 Obesity, unspecified; G47.00 Insomnia, unspecified; R79.89 Other specified abnormal findings of blood chemistry; Z90.710 Acquired absence of both cervix and uterus; Z90.49 Acquired absence of other specified parts of digestive tract; Z79.899 Other long term (current) drug therapy; Z98.890 Other specified postprocedural states; Z68.28 Body mass index [BMI] 28.0-28.9, adult
CPT/HCPCS: 36415; 70450; 80048; 81001; 85027; 96360; 96361; 99284; G0378; J7030; G0379

== ENCOUNTER → 2021-05-31 | Outpatient (CLI) | payer OTHER ==
[2021-05-29 11:00] VITALS: BP 147/83
[~2021-05-31] MED LIST changes: +COLL1CAP PO; +INUL2TAB4 PO; +LOSA25TA PO; +ZOLP12.52 PO
[2021-05-31 16:27] LABS: ALBUMIN 3.5 g/dL (3.4-5.0); CALCIUM 9.1 mg/dL (8.5-10.1); CREATININE 1.2 mg/dL (0.6-1.0); GFR 46.6; TOTAL BILIRUBIN 0.4 mg/dL (0.2-1.0)
[2021-05-31 16:36] LABS: FREE T4 1.16 ng/dL (0.76-1.46); THYROID STIM HORMONE (TSH) 2.259 uIU/mL (0.358-3.74)
[2021-05-31 16:50] LABS: CHOLESTEROL/HDL RATIO 2.4
[2021-06-01 01:12] LABS: HEMOGLOBIN A1C 5.5 % (4.8-5.6)
== END ==
LOC: LAB 15:34
PROVIDERS: ATTEND Nurse Practitioner Family
DX: E11.65 Type 2 diabetes mellitus with hyperglycemia (principal); E04.1 Nontoxic single thyroid nodule; E78.5 Hyperlipidemia, unspecified; E55.9 Vitamin D deficiency, unspecified
CPT/HCPCS: 36415; 80053; 80061; 82306; 83036; 84439; 84443

== ENCOUNTER → 2021-06-19 | Outpatient (CLI) | payer OTHER ==
[2021-05-29 11:00] VITALS: BP 147/83
[2021-06-19 20:21] LABS: CREATININE,RANDOM URINE 111.2 mg/dL (Not Establ.)
[2021-06-19 20:29] LABS: ALBUMIN 3.7 g/dL (3.4-5.0); CALCIUM 9.1 mg/dL (8.5-10.1); CREATININE 1.3 mg/dL (0.6-1.0); GFR 42.5; PHOSPHORUS 4.9 mg/dL (2.6-4.7); POTASSIUM 4.4 mmol/L (3.5-5.1)
[2021-06-19 20:33] LABS: BACTERIA,URINE 0 /HPF (0-FEW); RBC,URINE OCC /HPF (0-2); WBC,URINE OCC /HPF (0-4)
[2021-06-20 13:21] LABS: CREAT RD UR 104.2 mg/dL (Not Estab.); MICROALB RD UR 14.3 ug/mL (Not Estab.)
== END ==
LOC: LAB 19:56
PROVIDERS: ATTEND Internal Medicine Nephrology
DX: I12.9 Hypertensive chronic kidney disease with stage 1 through stage 4 chronic kidney disease, or unspecified chronic kidney disease (principal); E11.22 Type 2 diabetes mellitus with diabetic chronic kidney disease; N18.31 Chronic kidney disease, stage 3a; E11.21 Type 2 diabetes mellitus with diabetic nephropathy; N17.9 Acute kidney failure, unspecified; Z68.30 Body mass index [BMI] 30.0-30.9, adult
CPT/HCPCS: 80069; 81001; 82043; 82570; 84156

== ENCOUNTER → 2021-06-19 | Outpatient (CLI) | payer OTHER ==
[2021-05-29 11:00] VITALS: BP 147/83
[2021-06-19 20:30] LABS: ALBUMIN 3.6 g/dL (3.4-5.0); CALCIUM 9.1 mg/dL (8.5-10.1); CREATININE 1.3 mg/dL (0.6-1.0); GFR 42.5; POTASSIUM 4.3 mmol/L (3.5-5.1); TOTAL BILIRUBIN 0.4 mg/dL (0.2-1.0); TOTAL PROTEIN 7.2 g/dL (6.4-8.2)
== END ==
LOC: LAB 19:55
PROVIDERS: ATTEND Nurse Practitioner Family
DX: N18.32 Chronic kidney disease, stage 3b (principal)
CPT/HCPCS: 36415; 80053

== ENCOUNTER → 2021-06-30 | Outpatient (CLI) | payer OTHER ==
--- NOTE | 2021-06-30 14:56 | RAD ---
EXAM: Lumbar spine MRI without contrast. HISTORY: Gait abnormality. Incontinence. TECHNIQUE: Multiplanar, multisequence magnetic resonance imaging of the lumbar spine was performed wi thout contrast. COMPARISON: 11/26/2014. FINDINGS: There is minimal anterolisthesis of L2 on L3 and L3 on L4. There is degenerative endplate r emodeling and disc desiccation primarily at L5-S1. There are a few benign osseous hemangiomas. There is no suspicious osseous lesion. There is no acute or subacute fracture. There is mild degenerative a nterior endplate remodeling primarily along the superior endplates of L2 and L4. The conus terminates at L1. At L1-L2, there is no stenosis. At L2-L3, there is a minimal disc bulge. There is endplate remodeling. There is no stenosis. At L3-L4, there is a broad-based left foraminal to lateral disc protrusion and annular tear superimpo sed on a disc bulge and endplate remodeling. There is moderate left greater than right facet arthropa thy. There is mild left foraminal stenosis with abutment of the exiting left L3 nerve root. There is mild central canal stenosis. At L4-L5, there are shallow bilateral foraminal disc protrusions and annular tears superimposed on a disc bulge and endplate remodeling. There is moderate bilateral facet arthropathy. There is minimal l eft foraminal stenosis. At L5-S1, there is a posterior central to left paracentral disc protrusion and annular tear. There is no stenosis. IMPRESSION: Multilevel degenerative change involving the lumbar spine, described in detail above. Thi s results in mild left foraminal stenosis with abutment the exiting left L3 nerve root and mild centr al canal stenosis at L3-L4 and minimal left foraminal stenosis at L4-L5. Electronically signed by: Belgica Trimble MD (06/30/2021 2:54 PM) [id number]
== END ==
LOC: MRI 13:36
PROVIDERS: ATTEND Nurse Practitioner Family
DX: M47.816 Spondylosis without myelopathy or radiculopathy, lumbar region (principal); M51.27 Other intervertebral disc displacement, lumbosacral region; M51.37 Other intervertebral disc degeneration, lumbosacral region; M48.061 Spinal stenosis, lumbar region without neurogenic claudication; M43.16 Spondylolisthesis, lumbar region; M48.8X6 Other specified spondylopathies, lumbar region; D18.09 Hemangioma of other sites; R26.9 Unspecified abnormalities of gait and mobility; R32 Unspecified urinary incontinence
CPT/HCPCS: 72148